=== PATIENT | male | born 1940 | race Caucasian/White ===

== ENCOUNTER → 2017-05-29 | Outpatient (CLI) | payer BC ==
[~2017-05-29] MED LIST: AVD5 PO; LISI5TAB3 PO; METO50TA7 PO; NITR-5 PO; SIMV20TA2 PO; STLS PO
== END | disposition home or self-care (01) ==
LOC: C.PATHSPEC 16:58
PROVIDERS: ATTEND Urology
DX: R31.0 Gross hematuria (principal)

== ENCOUNTER → 2017-06-21 | Outpatient (CLI) | payer BC ==
[~2017-06-21] MED LIST changes: -METO50TA7 PO; +METO50TA8 PO
[2017-06-21 12:14] LABS: HEMATOCRIT 46.3 % (42-52); HEMOGLOBIN 16.2 g/dL (14.0-18.0); MEAN CELL VOLUME 93.5 fL (80-100); MEAN CORPUSCULAR HEMOGLOBIN 32.7 pg (25-34); MEAN PLATELET VOLUME 11.3 fL (7.4-10.4); PLATELET COUNT 228 K/uL (130-400); RED CELL DISTRIBUTION WIDTH CV 12.8 % (11.5-14.5); RED CELL DISTRIBUTION WIDTH SD 43.9 fL (36.4-46.3); WHITE BLOOD COUNT 6.09 K/uL (4.8-10.8)
[2017-06-21 12:27] LABS: BLOOD UREA NITROGEN 15 mg/dl (7-18); CALCIUM 9.1 mg/dl (8.5-10.1); CARBON DIOXIDE 29 mmol/L (21-32); CREATININE 1.29 mg/dl (0.60-1.40); GLUCOSE 87 mg/dl (70-99); POTASSIUM 4.3 mmol/L (3.5-5.1); SODIUM 134 mmol/L (136-145)
== END | disposition home or self-care (01) ==
LOC: C.LAB1850 09:45
PROVIDERS: ATTEND Urology
DX: R31.0 Gross hematuria (principal)

== ENCOUNTER → 2017-07-01 | Outpatient (CLI) | payer BC ==
[~2017-07-01] MED LIST changes: +OPTIRAY 320 IV PRN
--- NOTE | 2017-07-01 08:58 | DIAGNOSTIC IMAGING REPORT ---
CT UROGRAM CLINICAL HISTORY: Gross hematuria COMPARISON STUDY: Abdominal CT dated 04/17/2011. TECHNIQUE: Before and following the IV administration of 94 cc of Optiray 320, CT urogram of the abdomen and pelvis is performed from the lung bases to the proximal femora. Images are reviewed in the axial, sagittal, and coronal planes. IV contrast was administered without complication. A dose lowering technique was utilized adhering to the principles of ALARA. CT DOSE: 1427.00 mGycm FINDINGS: Lung bases: The heart is mildly enlarged and without pericardial effusion. The coronary arteries are densely calcified. Emphysematous change is noted. The lung bases are otherwise clear. There is a tiny hiatal hernia. Liver: The contrast-enhanced liver is normal in size, contour, and attenuation. There is no intrahepatic biliary ductal dilatation. The hepatic veins and portal veins are patent. Gallbladder: Unremarkable. Spleen: Normal in size and attenuation. Pancreas: Unremarkable. Adrenal glands: Unremarkable. Kidneys and ureters: The contrast enhanced kidneys demonstrate mild cortical atrophy and are without hydronephrosis. There are no renal calculi identified on the unenhanced images. The kidneys enhance and excrete symmetrically. There is no enhancing renal cortical mass lesion identified. A 10 mm cyst is noted in the lower pole of the left kidney. There is no evidence of urothelial lesion within the renal pelvis bilaterally or along the course of either ureter. Abdominal vasculature: There is advanced atherosclerotic calcification and ectasia of the abdominal aorta. Bowel: Moderate colonic fecal retention is identified. There is no bowel obstruction. The appendix is well-visualized and normal. Peritoneum: There is no intraperitoneal free air or abdominal ascites. Lymphadenopathy: None. Pelvic viscera: The prostate gland is markedly enlarged and heterogeneous, measuring 6.5 cm in transverse diameter. The bladder wall is thickened and trabeculated consistent with chronic outlet obstruction. There is a small fat-containing left inguinal hernia. Surgical clips are noted along the spermatic cord bilaterally. Skeletal structures: The skeletal structures are osteopenic. Degenerative change is noted in the lumbar spine, hips, and sacroiliac joints. No lytic or blastic lesions are seen. IMPRESSION: 1. Unremarkable assessment of the kidneys and ureters. 2. The prostate gland is markedly enlarged and heterogeneous. Correlation was serum PSA levels is recommended. 3. The bladder wall is thickened and trabeculated consistent with chronic outlet obstruction. If further assessment of the bladder is desired then cystoscopy would be appropriate. 4. Cardiomegaly and suspect emphysema. 5. Moderate colonic fecal retention. Electronically signed by: Ramu Gonzales M.D. 07/01/2017 8:57 AM Dictated Date/Time: 07/01/2017 8:48 AM
== END | disposition home or self-care (01) ==
LOC: C.CTS 08:00
PROVIDERS: ATTEND Urology
DX: R31.0 Gross hematuria (principal)

== ENCOUNTER → 2017-12-05 | Outpatient (CLI) | payer BC ==
[~2017-12-05] MED LIST changes: -OPTIRAY 320 IV PRN
== END | disposition home or self-care (01) ==
LOC: C.LAB1850 08:52
PROVIDERS: ATTEND Urology
DX: R97.20 Elevated prostate specific antigen [PSA] (principal)

== ENCOUNTER 2017-12-30 22:31 | Inpatient (IN) | payer BC, OTHER ==
[~2017-12-30] VITALS: Ht 175.3 cm; Wt 83.9 kg
[2017-12-30] MEDS ORDERED: SODIUM CHLORIDE 0.9% 1000ML 1,000 ML IV SCH (22:43)
--- NOTE | 2017-12-30 22:52 | EMERGENCY ROOM VISIT NOTE ---
History Report prepared by Andrew: Lauren Singer Under the Supervision of: Dr. Cullen Freeman M.D. First contact with patient: 22:40 Chief Complaint: STROKE SYMPTOMS Stated Complaint: STROKE SYMPTOMS Nursing Triage Summary: Pt states, "I was sitting on the couch, leaned over to pet my dog and felt an odd sensation. I was seeing double. I feel a little bit weak on my left side and I have a h/a." Sx started at 2140. History of Present Illness The patient is a 77 year old male who presents to the Emergency Room with complaints of an episode of transient double vision beginning 1 hour ago. He notes the double vision lasted about 40 seconds, and he is still experiencing clumsiness of his L arm and leg. He notes a mild posterior headache. He denies trauma or chest pain, aphasia, weakness, or numbness. The patient denies a history of similar symptoms. He notes he is on aspirin and has a history of Afib but does not take other blood thinners. Source of History: patient Onset: 1 hour ago Position: eye (bilateral) Symptom Intensity: transient Quality: other (one 40 second episode) Associated Symptoms: + headache (mild, posterior), No chest pain, No weakness, No numbness Note: Associated symptom: clumsiness of L arm and L leg. Denies: aphasia Review of Systems See HPI for pertinent positives and negatives. A total of ten systems were reviewed and were otherwise negative. Social History Smoking Status: Never Smoker Alcohol Use: occasionally Marital Status: Occupation Status: retired Current/Historical Medications Scheduled Aspirin (Aspirin Ec), 81 MG PO DAILY Dronedarone Hcl (Multaq), 1 TAB PO BID Dutasteride (Avodart), 0.5 MG PO DAILY Lisinopril (Prinivil), 30 MG PO DAILY Metoprolol Tartrate (Lopressor) (Lopressor), 50 MG PO BID Simvastatin (Zocor), 10 MG PO QPM Allergies Coded Allergies: No Known Drug Allergy (Verified Allergy, Unknown, `, 12/30/17) Physical Exam Vital Signs Date Time Temp Pulse Resp B/P (MAP) Pulse Ox O2 Delivery O2 Flow Rate FiO2 12/31/17 00:10 58 18 194/92 99 Room Air 12/30/17 23:47 56 18 207/99 96 Room Air 12/30/17 23:31 216/96 820/18 23:27 66 20 227/107 98 Room Air 12/30/17 23:20 61 18 201/96 95 Room Air 12/30/17 23:04 60 16 207/97 97 Room Air 12/30/17 22:59 58 12/30/17 22:40 98 Room Air 12/30/17 22:33 36.5 58 16 214/102 97 Room Air Physical Exam GENERAL: Awake, alert, well-appearing, in no distress HENT: Normocephalic, atraumatic. Oropharynx unremarkable. EYES: Normal conjunctiva. Sclera non-icteric. NECK: Supple. No nuchal rigidity. RESPIRATORY: Clear to auscultation. No wheezes. Normal respiratory effort. CARDIAC: Normal rate. Normal rhythm. Extremities warm and well perfused. GI: Soft, non-distended. No tenderness to palpation. No rebound or guarding RECTAL: Deferred. MUSCULOSKELETAL: Atraumatic. Chest examination reveals no tenderness. LOWER EXTREMITIES: Calves are equal size bilaterally and non-tender. No edema NEURO: Normal sensorium. No sensory or motor deficits noted. No facial droop. SKIN: Warm and dry. No rash or jaundice noted. Mild ataxia of L hand and leg, no pronator drift, cranial nerves 2-12 grossly intact, no slurred speech, no aphasia. NIH 2 Medical Decision & Procedures ER Provider Diagnostic Interpretation: Radiology results as stated below per my review and radiologist interpretation: CT OF THE HEAD WITHOUT CONTRAST CLINICAL HISTORY: Stroke. COMPARISON STUDY: No previous studies for comparison. CT DOSE: 614.27 mGy.cm TECHNIQUE: Helical axial images of the head were obtained without IV contrast. Automated exposure control was utilized for the study. A dose lowering technique was utilized adhering to the principles of ALARA. FINDINGS: No acute intracranial hemorrhage, midline shift or mass effect is present. Ventricular system is normal. Basilar cisterns are patent. There are no extra axial collections. Solano-white differentiation is maintained. There are no findings to suggest acute dural sinus thrombosis or acute territorial infarct. There are no significant calvarial abnormalities. Small amount of fluid within the right mastoid air cells is noted. IMPRESSION: No acute intracranial findings. Electronically signed by: Andi Duke M.D. 12/30/2017 10:58 PM Dictated Date/Time: 12/30/2017 10:55 PM CTA HEAD: No evidence for intracranial arterial occlusion or significant stenosis. Mild peripheral calcified plague in the distant internal carotid arteries. No visualized aneurysm. Radiologist: Mikhail Mccann MD. CTA NECK: No significant/high-grade stenosis or evidence for arterial occlusion within the neck. No evidence for vertebral dissection. There is mild peripheral calcified plaque within the right carotid bulb, without stenosis of the internal carotid artery. There is mild peripheral calcified plaque involving the left carotid bulb and proximal ICA with minimal narrowing. No acute soft tissue findings. Radiologist: Mikhail Mccann MD. Laboratory Results 12/30/17 22:47 Red Blood Count 4.33, Mean Corpuscular Volume 93.1, Mean Corpuscular Hemoglobin 31.6, Mean Corpuscular Hemoglobin Concent 34.0, Mean Platelet Volume 11.6, Neutrophils (%) (Auto) 61.0, Lymphocytes (%) (Auto) 22.7, Monocytes (%) (Auto) 11.8, Eosinophils (%) (Auto) 4.0, Basophils (%) (Auto) 0.2, Neutrophils # (Auto ) 3.91, Lymphocytes # (Auto) 1.46, Monocytes # (Auto) 0.76, Eosinophils # (Auto ) 0.26, Basophils # (Auto) 0.01 12/30/17 22:47 Test 12/30/17 22:47 12/30/17 23:05 White Blood Count 6.42 K/uL (4.8-10.8) Red Blood Count 4.33 M/uL (4.7-6.1) Hemoglobin 13.7 g/dL (14.0-18.0) Hematocrit 40.3 % (42-52) Mean Corpuscular Volume 93.1 fL (80-100) Mean Corpuscular Hemoglobin 31.6 pg (25-34) Mean Corpuscular Hemoglobin Concent 34.0 g/dl (32-36) Platelet Count 180 K/uL (130-400) Mean Platelet Volume 11.6 fL (7.4-10.4) Neutrophils (%) (Auto) 61.0 % Lymphocytes (%) (Auto) 22.7 % Monocytes (%) (Auto) 11.8 % Eosinophils (%) (Auto) 4.0 % Basophils (%) (Auto) 0.2 % Neutrophils # (Auto) 3.91 K/uL (1.4-6.5) Lymphocytes # (Auto) 1.46 K/uL (1.2-3.4) Monocytes # (Auto) 0.76 K/uL (0.11-0.59) Eosinophils # (Auto) 0.26 K/uL (0-0.5) Basophils # (Auto) 0.01 K/uL (0-0.2) RDW Standard Deviation 43.5 fL (36.4-46.3) RDW Coefficient of Variation 12.7 % (11.5-14.5) Immature Granulocyte % (Auto) 0.3 % Immature Granulocyte # (Auto) 0.02 K/uL (0.00-0.02) Prothrombin Time 10.2 SECONDS (9.0-12.0) Prothromb Time International Ratio 1.0 (0.9-1.1) Activated Partial Thromboplast Time 23.6 SECONDS (21.0-31.0) Partial Thromboplastin Ratio 0.9 Est Creatinine Clear Calc Drug Dose 58.8 ml/min Estimated GFR () 71.8 Estimated GFR (Non- 61.9 BUN/Creatinine Ratio 17.6 (10-20) Bedside Glucose 93 mg/dl (70-99) Calcium Level 8.4 mg/dl (8.5-10.1) Magnesium Level 2.2 mg/dl (1.8-2.4) Total Creatine Kinase 85 U/L (39-308) Creatine Kinase MB 1.1 ng/ml (0.5-3.6) Creatine Kinase MB Ratio 1.3 (0-3.0) Troponin I < 0.015 ng/ml (0-0.045) Bedside Hemoglobin 11.6 g/dl (14.0-18.0) Bedside Hematocrit 34 % (42-52) Bedside Sodium 139 mEq/L (135-144) Bedside Potassium 3.7 mEq/L (3.3-5.0) Bedside Chloride 102 mEq/L (101-112) Bedside Total CO2 23 mEq/l (24-31) Anion Gap 19.0 mmol/L (16-25) Bedside Blood Urea Nitrogen 21 mg/dl (7-18) Bedside Creatinine 1.0 mg/dl (0.6-1.3) Bedside Glucose (other) 91 mg/dl (70-99) Bedside Ionized Calcium (Brenda) 1.11 mmol/l (1.12-1.32) Laboratory results reviewed by me Medications Administered Medications (Trade) Dose Ordered Sig/Dio Route Start Time Stop Time Status Last Admin Dose Admin Sodium Chloride 1,000 ml @ 50 mls/hr Q20H IV 12/30/17 22:43 01/29/18 22:42 12/30/17 23:07 50 MLS/HR Aspirin (Ecotrin Tab) 325 mg ONE STAT PO 12/30/17 23:50 12/30/17 23:52 DC 12/31/17 00:05 325 MG Clopidogrel Bisulfate (plAVix TAB) 300 mg NOW STAT PO 12/30/17 23:50 12/30/17 23:52 DC 12/31/17 00:05 300 MG Famotidine (Pepcid Tab) 20 mg NOW ONCE PO 12/31/17 00:00 12/31/17 00:01 DC 12/31/17 00:05 20 MG ECG Per My Interpretation Indication: other (stroke) Rate (beats per minute): 58 Rhythm: sinus bradycardia Findings: other (normal intervals. normal axis. no ST segment elevation or depression.) ED Course 2239: The patient was evaluated in room A1. A complete history and physical exam was performed. 2316: Discussed the case with Ellie Piña neurologist. He will evaluate the patient. 0005: Discussed the case with Ellie Piña neurologist. He advises Aspirin and Plavix and admittance of the patient. 0006: [facility] Medical Decision Etiologies such as metabolic, infection, hypoglycemia, electrolyte abnormalities , cardiac sources, intracerebral event, toxicologic, neurologic, as well as others were entertained. Patient presents with sudden onset of left limb ataxia and headache approximately an hour ago with acute hypertension. On aspirin. NIH 2 for LUE and LLE ataxia mild in finding. Stroke alert initiated. CT and CT angiography of the head and neck were completed. No acute intracranial bleed. No acute electrolyte abnormality. No hypoglycemia. Tele-stroke was initiated. No significant acute electrolyte abnormality. EKG appears normal sinus rhythm. Given the resolving symptoms and minimal nature agree with tele-stroke that in discussion with patient will not pursue TPA at this time. Given aspirin and Plavix. Patient will be admitted for further stroke/TIA workup. Head Trauma GCS Score: 15 Medication Reconcilliation Current Medication List: was personally reviewed by me Blood Pressure Screening Patient's blood pressure: Elevated blood pressure Blood pressure disposition: Referred to PCP (referred to hospitalist) Consults Time Called: 5 Consulting Physician: Moustapha bellist Impression Primary Impression: Ataxia of left upper extremity Additional Impression: Hypertension Scribe Attestation The scribe's documentation has been prepared under my direction and personally reviewed by me in its entirety. I confirm that the note above accurately reflects all work, treatment, procedures, and medical decision making performed by me. Departure Information Dispostion Being Evaluated By Hospitalist Referrals Julien Bundy M.D.([facility]) (PCP) Patient Instructions My [facility] Stroke History Time Last Known Well 2139 Stroke t-PA Criteria Reviewed Meets criteria for t-PA Reason t-PA Not Given Treatment not indicated (Minimal and improving symptoms. Telestroke discussed with patient who declined TPA) Problem Qualifiers Additional Impression: Hypertension Hypertension type: unspecified Qualified Codes: I10 - Essential (primary) hypertension
[2017-12-30 22:59] LABS: BASO % 0.2 %; BASO ABS # 0.01 K/uL (0-0.2); EOS ABS # 0.26 K/uL (0-0.5); HEMATOCRIT 40.3 % (42-52); HEMOGLOBIN 13.7 g/dL (14.0-18.0); IG# 0.02 K/uL (0.00-0.02); LYMPH % 22.7 %; LYMPH ABS # 1.46 K/uL (1.2-3.4); MEAN CELL VOLUME 93.1 fL (80-100); MEAN CORPUSCULAR HEMOGLOBIN 31.6 pg (25-34); MEAN PLATELET VOLUME 11.6 fL (7.4-10.4); MONO % 11.8 %; MONO ABS # 0.76 K/uL (0.11-0.59); NEUT ABS # 3.91 K/uL (1.4-6.5); PLATELET COUNT 180 K/uL (130-400); RED CELL DISTRIBUTION WIDTH CV 12.7 % (11.5-14.5); RED CELL DISTRIBUTION WIDTH SD 43.5 fL (36.4-46.3); WHITE BLOOD COUNT 6.42 K/uL (4.8-10.8)
[2017-12-30] MEDS ORDERED: OPTIRAY 320 IV PRN (23:00)
--- NOTE | 2017-12-30 23:00 | DIAGNOSTIC IMAGING REPORT ---
CT OF THE HEAD WITHOUT CONTRAST CLINICAL HISTORY: Stroke. COMPARISON STUDY: No previous studies for comparison. CT DOSE: 614.27 mGy.cm TECHNIQUE: Helical axial images of the head were obtained without IV contrast. Automated exposure control was utilized for the study. A dose lowering technique was utilized adhering to the principles of ALARA. FINDINGS: No acute intracranial hemorrhage, midline shift or mass effect is present. Ventricular system is normal. Basilar cisterns are patent. There are no extra axial collections. Solano-white differentiation is maintained. There are no findings to suggest acute dural sinus thrombosis or acute territorial infarct. There are no significant calvarial abnormalities. Small amount of fluid within the right mastoid air cells is noted. IMPRESSION: No acute intracranial findings. Electronically signed by: Andi Duke M.D. 12/30/2017 10:58 PM Dictated Date/Time: 12/30/2017 10:55 PM
[2017-12-30 23:11] LABS: PTT PATIENT 23.6 SECONDS (21.0-31.0)
[2017-12-30 23:18] LABS: ISTAT IONIZED CALCIUM 1.11 mmol/l (1.12-1.32); ISTAT POTASSIUM 3.7 mEq/L (3.3-5.0)
[2017-12-30] MEDS ORDERED: DUTA0.5C PO (23:20)
[2017-12-30] MEDS ORDERED: LISI-526 PO (23:20)
[2017-12-30] MEDS ORDERED: DRON400T PO (23:20)
[2017-12-30] MEDS ORDERED: ASPI81TA28 PO (23:20)
[2017-12-30] MEDS ORDERED: METO50TA16 PO (23:20)
[2017-12-30 23:21] LABS: BLOOD UREA NITROGEN 20 mg/dl (7-18); CALCIUM 8.4 mg/dl (8.5-10.1); CARBON DIOXIDE 26 mmol/L (21-32); CKMB 1.1 ng/ml (0.5-3.6); CREATININE 1.13 mg/dl (0.60-1.40); GLUCOSE 94 mg/dl (70-99); POTASSIUM 3.9 mmol/L (3.5-5.1); SODIUM 140 mmol/L (136-145)
[2017-12-30] MEDS ORDERED: SIMV10TA2 PO (23:21)
[2017-12-30] MEDS ORDERED: CLOPIDOGREL BISULFATE 300 MG TAB PO STA (23:50)
[2017-12-30] MEDS ORDERED: ASPIRIN 325 MG ECTAB PO STA (23:50)
[2017-12-31] VITALS (8 sets, daily range): BP systolic 158–207; BP diastolic 73–92; PULSE 53–65; TEMP 36.3–36.6; O2SAT 95–96; Ht 175.3 cm; Wt 83.9 kg
[2017-12-31] MEDS ORDERED: FAMOTIDINE 20 MG TAB PO ONE
[2017-12-31] MEDS ORDERED: ACETAMINOPHEN 325 MG TAB PO PRN (02:30)
[2017-12-31] MEDS ORDERED: NITROGLYCERIN 0.4 MG SL PER TAB CHARGE SL PRN (02:30)
[2017-12-31] MEDS ORDERED: PHARMACIST DISCHARGE MED REC CONSULT PRN (02:30)
[2017-12-31] MEDS ORDERED: PROCHLORPERAZINE INJ 5 MG in SYRINGE 4 ML IV PRN (02:30)
[2017-12-31] MEDS ORDERED: TRAMADOL HCL 50 MG TAB PO PRN (02:30)
[2017-12-31] MEDS ORDERED: MoRPHine SULFATE 4 MG/ML 1 ML CARP\\VIAL IV PRN (02:30)
[2017-12-31] MEDS ORDERED: NSS + 20MEQ KCL 1000ML 1,000 ML IV ONE (03:45)
[2017-12-31] MEDS ORDERED: LISINOPRIL 5 MG TAB PO ONE (04:15)
[2017-12-31] MEDS ORDERED: CALCIUM GLUCONATE 10% 1,000 MG in SODIUM CHLORIDE 0.9% 50ML 50 ML IV ONE (05:15)
[2017-12-31 05:44] LABS: BASO % 0.2 %; BASO ABS # 0.01 K/uL (0-0.2); EOS % 4.8 %; EOS ABS # 0.24 K/uL (0-0.5); HEMATOCRIT 37.9 % (42-52); HEMOGLOBIN 12.7 g/dL (14.0-18.0); IG# 0.02 K/uL (0.00-0.02); LYMPH % 27.9 %; LYMPH ABS # 1.41 K/uL (1.2-3.4); MEAN CELL VOLUME 92.9 fL (80-100); MEAN CORPUSCULAR HEMOGLOBIN 31.1 pg (25-34); MEAN CORPUSCULAR HGB CONC 33.5 g/dl (32-36); MEAN PLATELET VOLUME 11.7 fL (7.4-10.4); MONO % 9.7 %; MONO ABS # 0.49 K/uL (0.11-0.59); NEUT ABS # 2.88 K/uL (1.4-6.5); PLATELET COUNT 157 K/uL (130-400); RED CELL DISTRIBUTION WIDTH CV 12.8 % (11.5-14.5); RED CELL DISTRIBUTION WIDTH SD 43.4 fL (36.4-46.3); RETIC COUNT % 3.1 % (0.5-2.0); WHITE BLOOD COUNT 5.05 K/uL (4.8-10.8)
[2017-12-31 06:24] LABS: CALCIUM 7.8 mg/dl (8.5-10.1); CREATININE 0.94 mg/dl (0.60-1.40); POTASSIUM 3.7 mmol/L (3.5-5.1)
--- NOTE | 2017-12-31 06:33 | HISTORY & PHYSICAL EXAMINATION ---
DATE OF ADMISSION: 12/31/2017 PRIMARY CARE DOCTOR: Dr. Bundy. CHIEF COMPLAINT: Stroke symptoms. HISTORY OF PRESENT ILLNESS: History obtained from patient and records. Medical history significant for coronary artery disease status post stenting, paroxysmal atrial fibrillation not on anticoagulation secondary to massive hematuria. hypertension, hyperlipidemia, BPH, past tobacco abuse, Recent confinement in April 2011 under Urology service for gross hematuria. Patient was taking NSAIDs along with Aspirin/Plavix at time of hematuria. Patient underwent cystoscopy and fulguration of prostatic urethra. Plavix discontinued on discharge, stayed on aspirin. Around 9:45 p.m. last night, patient had transient double vision and clumsiness of left arm, leg, posterior achy headache. No chest pain, no shortness of breath. Compliant with home aspirin. At the Emergency Room, symptoms improving. Stroke alert called. Patient received Aspirin and Plavix in the ER as per [facility] Telestroke recommendation. MEDICAL HISTORY: As above. SURGERIES: He has had urologic procedures. HOME MEDICATIONS: Include aspirin, Multaq, Avodart, lisinopril, Lopressor, Zocor. ALLERGIES: No known drug allergies. FAMILY HISTORY: Heart disease, stroke. PERSONAL AND SOCIAL HISTORY: Past tobacco smoker. Occasional EtOH intake. 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 REVIEW OF SYSTEMS: As per HPI, all 10 systems reviewed, all other ROS negative. PHYSICAL EXAMINATION: VITAL SIGNS: Blood pressure was noted to be 207/97, pulse rate 55, RR 16, temperature 36.4, sats 99 on room air. GENERAL: Noted to be pleasant, no respiratory distress. SKIN: joel, warm. HEENT: Bespectacled. Webber palpebral conjunctivae, no ptosis, dry mucosa. NECK: Supple, nontender. CHEST: Clear to auscultation, no tenderness. HEART: Bradycardic. No murmur. ABDOMEN: Soft, nontender. RECTAL: Intact sphincter, yellow stool, heme negative. EXTREMITIES: No edema, no tenderness, no gross deformities. NEUROLOGIC: Coherent, no facial symmetry, no gross focality. Gait and stance not assessed. LABORATORY DATA: Hemoglobin was noted to be 13.7, hematocrit 40.3, white blood cells 6.42, platelets 180. Sodium noted to be 140, potassium 3.9, chloride 107, CO2 of 26, BUN 20, creatinine 1.13. TSH 4.82. CT head initially no acute pathology. CT angio neck initial read, no significant high-grade stenosis; mild peripheral calcified plaque, right carotid bulb without stenosis of right ICA; mild peripheral calcified plaque, left ICA with minimal narrowing. Chest x-ray as per my interpretation, atelectasis. EKG as per my interpretation, rate 55, sinus bradycardia, no ischemia. ASSESSMENT: 1. Transient ischemic attack versus complicated migraine. 2. Hypertensive urgency secondary to above 3. Paroxysmal atrial fibrillation patient NSR Not on anticoagulation secondary to past history massive hematuria 4. CAD sp stenting 5. Benign prostatic hyperplasia as per records. 6. Past tobacco abuse. 7. New onset anemia. PLAN: PCU neuro checks. MRI/MRA of brain. Continue dual antiplatelet Rx Aspirin and Plavix as per [facility] [place] Telestroke recommendations for now for secondary stroke prevention Neurology consult. RE TIA Permissive hypertension until new stroke ruled out. Additional stroke workup pending MRI results. Anemia workup. Deep venous thrombosis prophylaxis, Lovenox subcutaneous. Full code MTDD
--- NOTE | 2017-12-31 06:33 | DIAGNOSTIC IMAGING REPORT ---
MRI OF THE BRAIN WITHOUT CONTRAST CLINICAL HISTORY: Stroke, double vision, loss of coordination of the left arm and leg. COMPARISON STUDY: Noncontrast head CT dated 12/30/2017 FINDINGS: Sagittal T1, axial diffusion, proton density and T2 weighted axial, coronal FLAIR, and axial T1-weighted images were acquired. No intra or extra-axial mass lesions are visualized Axial diffusion-weighted images reveal no evidence of acute or subacute infarction. There is no evidence of ventricular dilatation. Proton density T2-weighted and FLAIR images reveal no significant intraparenchymal signal abnormalities. There are no abnormal flow voids. IMPRESSION: Normal MRI of the brain for age Electronically signed by: Antonino Cano M.D. 12/31/2017 6:32 AM Dictated Date/Time: 12/31/2017 6:30 AM
--- NOTE | 2017-12-31 06:46 | DIAGNOSTIC IMAGING REPORT ---
CT NECK ANGIO WITH CONTRAST CLINICAL HISTORY: Stroke. COMPARISON STUDY: Carotid Doppler ultrasound performed July 2006 TECHNIQUE: CT angiography was performed from the aortic arch to the skull base. MIP imaging was performed. The patient was scanned in a dynamic helical fashion during intravenous administration of 90 cc of Optiray 320. A dose lowering technique was utilized adhering to the principles of ALARA. CT DOSE: 543.46 mGy.cm Technique: CT angiogram of the carotid and vertebral arteries was obtained using intravenous contrast and 3-D reconstruction. NASCET criteria was utilized. Findings: The right carotid revealed no evidence of aneurysm and no evidence of dissection. There is no evidence of hemodynamic significant stenosis. The left carotid revealed no evidence of hemodynamic significant stenosis. There is no evidence of aneurysm. There is no evidence of dissection. There is no evidence of hemodynamically significant vertebral stenosis. There is no evidence of vertebral dissection. IMPRESSION: No evidence of hemodynamically significant carotid or vertebral artery stenosis. No evidence of dissection. Electronically signed by: Antonino Cano M.D. 12/31/2017 6:44 AM Dictated Date/Time: 12/31/2017 6:42 AM
--- NOTE | 2017-12-31 06:47 | DIAGNOSTIC IMAGING REPORT ---
CHEST ONE VIEW PORTABLE HISTORY: 77 years-old Male elevated bp acutely elevated blood pressure COMPARISON: Chest radiograph 02/16/2010 TECHNIQUE: Portable AP view of the chest FINDINGS: Cardiomediastinal and hilar silhouettes are within normal limits. Calcification of the aorta. No pneumothorax, pleural effusion, focal airspace consolidation or overt pulmonary edema. Linear subsegmental left basilar opacities suggest atelectasis/scarring. Bones of the chest appear grossly intact. IMPRESSION: No acute process. The above report was generated using voice recognition software. It may contain grammatical, syntax or spelling errors. Electronically signed by: Adan Zafar M.D. 12/31/2017 6:46 AM Dictated Date/Time: 12/31/2017 6:45 AM
--- NOTE | 2017-12-31 07:05 | DIAGNOSTIC IMAGING REPORT ---
MRA HEAD WITHOUT CONTRAST HISTORY: 77 years-old Male stroke acute strokelike symptoms COMPARISON: Brain MRI of same day TECHNIQUE: MRA of the head was obtained without contrast utilizing 3-D acjl-xl-smrsan sequencing with MIP reformats. FINDINGS: Large [id number] goodwill ambassador localizer images demonstrate no gross abnormality. The imaged bilateral internal carotid arteries are widely patent. The bilateral middle and anterior cerebral arteries are also widely patent and within normal limits. The imaged bilateral vertebral arteries are patent. The basilar artery appears patent and is within normal limits. The bilateral posterior cerebral arteries appear normal. No aneurysm, high-grade stenosis, dissection or proximal branch occlusion. IMPRESSION: Unremarkable MRA of the head without aneurysm, high-grade stenosis, dissection or proximal branch occlusion. The above report was generated using voice recognition software. It may contain grammatical, syntax or spelling errors. Electronically signed by: Adan Zafar M.D. 12/31/2017 7:04 AM Dictated Date/Time: 12/31/2017 6:59 AM
--- NOTE | 2017-12-31 07:22 | DIAGNOSTIC IMAGING REPORT ---
HEAD ANGIO WITH CONTRAST CLINICAL HISTORY: 77 years-old Male presenting with stroke. TECHNIQUE: Multidetector CT angiography of the head was performed after the administration of intravenous contrast. 3-D volumetric and/or maximum intensity projection (MIP) images were subsequently reconstructed for review. IV contrast: 90 mL of Optiray 320. A dose lowering technique was used consistent with the principles of ALARA (as low as reasonably achievable). COMPARISON: Noncontrast head CT performed earlier the same day. CT DOSE (mGy.cm): The estimated cumulative dose is 543.46. FINDINGS: Maintenance Custodian topogram: Unremarkable. Anterior circulation: Atherosclerosis of the cavernous segments of the internal carotid arteries. Intracranial portions of the internal carotid arteries patent to the level of the termini. Anterior and middle cerebral arteries patent. Anterior communicating artery hypoplastic or aplastic. Posterior circulation: Codominant vertebral arteries. Intradural portions of the vertebral arteries patent. Posterior inferior cerebellar arteries patent. Basilar artery patent. The basilar tip is mildly bulbous without a focal aneurysm. Anterior inferior cerebellar arteries poorly visualized. Superior cerebellar and posterior cerebral arteries patent. Right posterior communicating artery hypoplastic or aplastic. Left posterior communicating artery patent. Dural venous sinuses: Patent. Other: Allowing for the phase of contrast, brain parenchyma within normal limits. Calvarium intact. Upper cervical spine normal. IMPRESSION: 1. No evidence of aneurysm, focal vessel occlusion, or significant stenosis of the intracranial arteries. Electronically signed by: Marty Black M.D. 12/31/2017 7:20 AM Dictated Date/Time: 12/31/2017 6:33 AM
[2017-12-31] MEDS: AVODART-ORDER AWAITING ACTION SCH ×2 (08:00→14:47)
[2017-12-31] MEDS: DRONEDARONE 400 MG TAB PO SCH ×2 (08:27→19:31)
[2017-12-31] MEDS ORDERED: ENOXAPARIN 40 MG/0.4 ML SYR SC SCH (09:00)
--- NOTE | 2017-12-31 09:50 | Neurology Consultation ---
Neurology Consultation Date of Consultation: Dec 31, 2017. Attending Physician: Salas Cuevas M.D. Primary Care Physician: Julien Bundy M.D.(CLARITZA) History of Present Illness Source: patient, hospital records Mr.Elwin Ricardo is a 77 year old male with history of HTN, HLD, and paroxysmal Afib not on anticoagulation due to history of severe hematuria who was admitted for transient horizontal diplopia and left arm and leg ataxia. Symptom onset was acute and resolved after several hours last night. Denies history of stroke or similar symptoms. He is a non smoker. Denies significant alcohol. Denies JORDON. No history of diabetes. Reports feeling well now. He was on ASA at home and is currently on dual antiplatelet therapy. Past Medical/Surgical History Medical Problems: (1) Ataxia of left upper extremity Status: Acute (2) Hypertension Status: Acute Family History Stroke, Heart Disease Social History Smoking Status: Former smoker Marital Status: Occupation Status: retired Allergies Coded Allergies: No Known Drug Allergy (Verified Allergy, Unknown, `, 12/30/17) Current Inpatient Medications Current Inpatient Medications Medications (Trade) Dose Ordered Sig/Dio Route Start Time Stop Time Status Last Admin Dose Admin Ioversol (Optiray 320) 125 ml UD PRN IV 12/30/17 23:00 01/03/18 22:59 Acetaminophen (Tylenol Tab) 650 mg Q4H PRN PO 12/31/17 02:30 01/30/18 02:29 Nitroglycerin (Nitrostat Tab) 0.4 mg UD PRN SL 12/31/17 02:30 01/30/18 02:29 Aspirin (Ecotrin Tab) 81 mg QAM PO 01/01/18 09:00 01/31/18 08:59 Clopidogrel Bisulfate (plAVix TAB) 75 mg QAM PO 01/01/18 09:00 01/31/18 08:59 Miscellaneous Information (Pharmacist Discharge Med Rec Consult) 1 ea UD PRN N/A 12/31/17 02:30 01/30/18 02:29 Prochlorperazine Edisylate 5 mg/ Syringe 5 ml @ 5 mls/min Q6H PRN IV 12/31/17 02:30 01/30/18 02:29 Tramadol HCl (Ultram Tab) 25 mg Q6H PRN PO 12/31/17 02:30 01/30/18 02:29 Morphine Sulfate (MoRPHine SULFATE INJ) 4 mg Q6H PRN IV 12/31/17 02:30 01/14/18 02:29 Dronedarone (Multaq Tab) 400 mg BID PO 12/31/17 09:00 01/30/18 08:59 12/31/17 08:27 400 MG Simvastatin (Zocor Tab) 10 mg QPM PO 12/31/17 21:00 01/30/18 20:59 Miscellaneous Information (Order Awaiting Action) 1 ea QS N/A 12/31/17 08:00 01/30/18 07:59 Lisinopril (Zestril Tab) 5 mg QAM PO 01/01/18 09:00 01/31/18 08:59 Review of Systems Eyes: + diplopia Genitourinary - Male: + hematuria Neurologic: + weakness Physical Exam Vital Signs (Past 24 Hrs): Date Time Temp Pulse Resp B/P (MAP) Pulse Ox O2 Delivery O2 Flow Rate FiO2 12/31/17 08:30 61 12/31/17 07:44 36.3 53 20 158/84 (108) 95 12/31/17 04:00 Room Air 12/31/17 03:13 96 Room Air 12/31/17 03:10 36.4 55 20 207/92 12/31/17 02:09 56 18 179/85 95 Room Air 12/31/17 00:48 54 18 186/95 99 Room Air 12/31/17 00:10 58 18 194/92 99 Room Air 12/30/17 23:47 56 18 207/99 96 Room Air 12/30/17 23:31 216/96 12/30/17 23:27 66 20 227/107 98 Room Air 12/30/17 23:20 61 18 201/96 95 Room Air 12/30/17 23:04 60 16 207/97 97 Room Air 12/30/17 22:59 58 12/30/17 22:40 98 Room Air 12/30/17 22:33 36.5 58 16 214/102 97 Room Air EXAM: Constitutional: appearance normally developed, well nourished and non-obese Head and Face: normocephalic and atraumatic Eyes: normal lids, normal conjunctiva, Neck: supple Respiratory: normal effort Cardiovascular: ~regular rhythm and normal pulses Abdomen: non distended Skin: no rashes, lesions, or ulcers noted Psychiatric: normal judgement and insight, normal mood and normal affect NEUROLOGIC EXAMINATION: Appearance: no acute distress Opthalmoscopic: disc flat, normal fundus Carotid/Heart/Peripheral Vascular: no bruits, RRR Orientation: awake, alert and oriented x 3 Mental Status: alert Attention: normal Knowledge: appropriate Language: no aphasia Speech: no dysarthria Cranial Nerves: CN 2 - no visual defect on confrontation CN 3, 4, 6 - extra-ocular movements intact and no nystagmus CN 5 - facial sensation intact CN 7 - no facial asymmetry CN 8 - intact hearing CN 9, 10 - palate symmetric CN 11 - good shoulder shrug CN 12 - tongue midline Gait: deferred Coordination: no ataxia with finger to nose testing or heel to jacobsen Sensory: intact to soft touch Muscle Tone: normal Muscle exam: 5/5 throughout Reflexes:2+ at the knees and biceps, no clonus, toes flexor bilateral Laboratory Results Past 24 Hours: 12/31/17 05:26 Red Blood Count 4.08, Mean Corpuscular Volume 92.9, Mean Corpuscular Hemoglobin 31.1, Mean Corpuscular Hemoglobin Concent 33.5, Mean Platelet Volume 11.7, Neutrophils (%) (Auto) 57.0, Lymphocytes (%) (Auto) 27.9, Monocytes (%) (Auto) 9.7, Eosinophils (%) (Auto) 4.8, Basophils (%) (Auto) 0.2, Neutrophils # (Auto) 2.88, Lymphocytes # (Auto) 1.41, Monocytes # (Auto) 0.49, Eosinophils # (Auto) 0.24, Basophils # (Auto) 0.01 12/31/17 05:26 Test 12/30/17 22:47 12/30/17 23:05 12/31/17 05:26 Prothrombin Time 10.2 SECONDS (9.0-12.0) Prothromb Time International Ratio 1.0 (0.9-1.1) Activated Partial Thromboplast Time 23.6 SECONDS (21.0-31.0) Partial Thromboplastin Ratio 0.9 Bedside Glucose 93 mg/dl (70-99) Magnesium Level 2.2 mg/dl (1.8-2.4) Total Creatine Kinase 85 U/L (39-308) Creatine Kinase MB 1.1 ng/ml (0.5-3.6) Creatine Kinase MB Ratio 1.3 (0-3.0) Troponin I < 0.015 ng/ml (0-0.045) Thyroid Stimulating Hormone (TSH) 4.820 uIu/ml (0.300-4.500) Free Thyroxine 0.92 ng/dl (0.80-1.60) Total Triiodothyronine 0.85 ng/ml (0.60-1.81) Bedside Hemoglobin 11.6 g/dl (14.0-18.0) Bedside Hematocrit 34 % (42-52) Bedside Sodium 139 mEq/L (135-144) Bedside Potassium 3.7 mEq/L (3.3-5.0) Bedside Chloride 102 mEq/L (101-112) Bedside Total CO2 23 mEq/l (24-31) Bedside Blood Urea Nitrogen 21 mg/dl (7-18) Bedside Creatinine 1.0 mg/dl (0.6-1.3) Bedside Glucose (other) 91 mg/dl (70-99) Bedside Ionized Calcium (Brenda) 1.11 mmol/l (1.12-1.32) White Blood Count 5.05 K/uL (4.8-10.8) Red Blood Count 4.08 M/uL (4.7-6.1) Hemoglobin 12.7 g/dL (14.0-18.0) Hematocrit 37.9 % (42-52) Mean Corpuscular Volume 92.9 fL (80-100) Mean Corpuscular Hemoglobin 31.1 pg (25-34) Mean Corpuscular Hemoglobin Concent 33.5 g/dl (32-36) Platelet Count 157 K/uL (130-400) Mean Platelet Volume 11.7 fL (7.4-10.4) Neutrophils (%) (Auto) 57.0 % Lymphocytes (%) (Auto) 27.9 % Monocytes (%) (Auto) 9.7 % Eosinophils (%) (Auto) 4.8 % Basophils (%) (Auto) 0.2 % Neutrophils # (Auto) 2.88 K/uL (1.4-6.5) Lymphocytes # (Auto) 1.41 K/uL (1.2-3.4) Monocytes # (Auto) 0.49 K/uL (0.11-0.59) Eosinophils # (Auto) 0.24 K/uL (0-0.5) Basophils # (Auto) 0.01 K/uL (0-0.2) RDW Standard Deviation 43.4 fL (36.4-46.3) RDW Coefficient of Variation 12.8 % (11.5-14.5) Immature Granulocyte % (Auto) 0.4 % Immature Granulocyte # (Auto) 0.02 K/uL (0.00-0.02) Absolute Reticulocyte Count 0.12 10^6/uL (0.02-0.10) Percent Reticulocyte Count 3.1 % (0.5-2.0) Anion Gap 7.0 mmol/L (3-11) Est Creatinine Clear Calc Drug Dose 64.8 ml/min Estimated GFR () 89.6 Estimated GFR (Non- 77.3 BUN/Creatinine Ratio 18.9 (10-20) Calcium Level 7.8 mg/dl (8.5-10.1) Iron Level 51 mcg/dl (35-175) Total Iron Binding Capacity 288 mcg/dl (250-450) Transferrin 227 mg/dl (200-360) Transferrin % Saturation 16 % (20-50) Ferritin 82.4 ng/ml (8.0-388.0) Triglycerides Level 123 mg/dl (0-150) Cholesterol Level 90 mg/dl (0-200) HDL Cholesterol 30 mg/dl LDL Cholesterol, Calculated 35 mg/dl VLDL Cholesterol, Calculated 25 mg/dl Cholesterol/HDL Ratio 3.0 Vitamin B12 Level 238 pg/mL (211-911) Folate 11.25 ng/mL (>5.38) Imaging MRI Brain w/o contrast on 12/31/2017 reviewed. My impression is normal MRI brain. No evidence of any acute intracranial abnormality. CTA Head and Neck reviewed. No large vessel occlusion or significant stenosis. Impression I believe this patient had a transient ischemic attack. He is high risk for stroke given his paroxysmal atrial fibrillation and NOT on anticoagulation. He is currently on dual anti-platelet therapy. He is not on anticoagulation due to previous bleeding diathesis. I strongly recommended he discussed with his urologist if he is still at risk for bleeding and if anticoagulation was possible. If patient is NOT a candidate for anticoagulation I agree with dual antiplatelet therapy for now, however I would recommend discussion or consolation with cardiology to consider Watchmen device. I would also recommend consultation with cardiology for MIKE as this may help with decision making regarding anticoagulation. If MIKE is not possible I would recommend TTE with shunt. Recommend normotension with SBP <140, DBP<90. Please check HA1c if not already checked. Recommend switching to high intensity statin, Lipitor 40 mg daily for secondary stroke prevention. Plan Continue dual antiplatelet therapy for now Recommend patient discuss with his urologist if he is a candidate for anticoagulation Switch to high intensity statin Recommend TTE (MIKE preferable) Consider discussion with cardiology regarding Watchmen if patient not candidate for anticoagulation
--- NOTE | 2017-12-31 14:41 | Progress Note ---
Internal Med Progress Note Date of Service: Dec 31, 2017. Provider Documentation: SUBJECTIVE: Patient reports weakness on admission has resolved. Denies headache or chest pain or abdominal pain or shortness of breath OBJECTIVE: Exam: General- no acute distress Eyes- EOMI Neck- no JVD Lungs- clear to auscultation bilaterally Heart- sinus bradycardia Abdomen- soft, nontender, positive bowel sounds Extremities- no edema, extremities strength is intact and equal on both sides Neuro- awake and alert ASSESSMENT & PLAN: Hospital Course and Plan 77 year old male with history of HTN, HLD, and paroxysmal Afib not on anticoagulation due to history of severe hematuria who was admitted for transient horizontal diplopia and left arm and leg ataxia Patient was evaluated by Telestroke As per ED notes Reason t-PA Not Given: Treatment not indicated (Minimal and improving symptoms. Telestroke discussed with patient who declined TPA Patient was evaluated by occupational therapy and physical therapy and no further therapy required as of 12/31/17 as symptoms have resolved MRI Brain w/o contrast on 12/31/2017 reviewed. normal MRI brain. No evidence of any acute intracranial abnormality. CTA Head and Neck reviewed. No large vessel occlusion or significant stenosis. Patient was evaluated by neurology Dr. Braxton and diagnosis is transient ischemic attack Dr. Braxton recommended dual antiplatelet therapy (aspirin and clopidogrel) for now high intensity statin of Lipitor 40 mg daily Neurology recommended that echocardiogram be obtained to rule out any interatrial shunt Transthoracic Echocardiogram 12/31/17 * Normal LV chamber size with mild concentric LVH. * Normal LV systolic function, EF 60-65%. * No segmental left ventricular wall motion abnormalities are noted. * Grade II diastolic dysfunction. * Aortic valve sclerosis mild, without significant aortic valvular stenosis. * Mild mitral regurgitation. * Mild left atrial enlargement. * The interatrial septum is intact with no evidence for an atrial septal defect. * Injection of contrast documented no interatrial shunt. No Interatrial shunt identified Patient declines Transesophageal echocardiogram Dr. Braxton Recommend patient discuss with his [facility] urologist (Dr. Pineda) if he is a candidate for anticoagulation Patient is not on anticoagulation secondary to past history massive hematuria, history of Benign prostatic hyperplasia Hospitalist have discussed with [facility] urology and Dr. Mahmood, who is Dr. Pineda's colleague, is in favor of of anticoagulation with coumadin History of Paroxysmal atrial fibrillation not on anticoagulation; history of coronary artery disease with stents currently sinus bradycardia - continue metoprolol at home Patient prefers to wait until primary care appointment with Dr. Bundy before considering to start Coumadin therapy He agrees with hospitalist to be discharged with aspirin and clopidogrel and atorvastatin for now Hypertension / Hypertensive urgency Primary care doctor should help patient achieve blood pressure SBP <140, DBP<90 resume lisinopril also adding HCTZ daily Primary care doctor to follow up HbA1c that is pending from hospital admission Patient Discharge instructions Patient to take clopidogrel with aspirin daily. Patient should take atorvastatin rather than simvastatin Please follow up with primary care doctor 01/07/2018 11:20 AM Julien Bundy MD Family Practice [facility] (Patient to discuss possibly being started on coumadin) (Primary care doctor to follow up HbA1c that is pending from hospital admission) (Primary care doctor should help patient achieve blood pressure SBP <140, DBP<90 ) Other upcoming appointment with ENT 01/08/2018 9:20 AM Cyrus Alves DO Otolaryngology [facility] Vital Signs: Date Time Temp Pulse Resp B/P (MAP) Pulse Ox O2 Delivery O2 Flow Rate FiO2 12/31/17 16:18 36.6 55 18 186/73 (110) 96 12/31/17 16:00 Room Air 12/31/17 08:30 61 12/31/17 08:00 Room Air 12/31/17 07:44 36.3 53 20 158/84 (108) 95 12/31/17 04:00 Room Air 12/31/17 03:13 96 Room Air 12/31/17 03:10 36.4 55 20 207/92 12/31/17 02:09 56 18 179/85 95 Room Air 12/31/17 00:48 54 18 186/95 99 Room Air 12/31/17 00:10 58 18 194/92 99 Room Air 12/30/17 23:47 56 18 207/99 96 Room Air 12/30/17 23:31 216/96 12/30/17 23:27 66 20 227/107 98 Room Air 12/30/17 23:20 61 18 201/96 95 Room Air 12/30/17 23:04 60 16 207/97 97 Room Air 12/30/17 22:59 58 12/30/17 22:40 98 Room Air 12/30/17 22:33 36.5 58 16 214/102 97 Room Air Lab Results: Results Past 24 Hours Test 12/30/17 22:47 12/30/17 23:05 12/31/17 05:26 12/31/17 10:45 Range/Units White Blood Count 6.42 5.05 4.8-10.8 K/uL Red Blood Count 4.33 4.08 4.7-6.1 M/uL Hemoglobin 13.7 12.7 14.0-18.0 g/dL Hematocrit 40.3 37.9 42-52 % Mean Corpuscular Volume 93.1 92.9 80-100 fL Mean Corpuscular Hemoglobin 31.6 31.1 25-34 pg Mean Corpuscular Hemoglobin Concent 34.0 33.5 32-36 g/dl Platelet Count 180 157 130-400 K/uL Mean Platelet Volume 11.6 11.7 7.4-10.4 fL Neutrophils (%) (Auto) 61.0 57.0 % Lymphocytes (%) (Auto) 22.7 27.9 % Monocytes (%) (Auto) 11.8 9.7 % Eosinophils (%) (Auto) 4.0 4.8 % Basophils (%) (Auto) 0.2 0.2 % Neutrophils # (Auto) 3.91 2.88 1.4-6.5 K/uL Lymphocytes # (Auto) 1.46 1.41 1.2-3.4 K/uL Monocytes # (Auto) 0.76 0.49 0.11-0.59 K/uL Eosinophils # (Auto) 0.26 0.24 0-0.5 K/uL Basophils # (Auto) 0.01 0.01 0-0.2 K/uL RDW Standard Deviation 43.5 43.4 36.4-46.3 fL RDW Coefficient of Variation 12.7 12.8 11.5-14.5 % Immature Granulocyte % (Auto) 0.3 0.4 % Immature Granulocyte # (Auto) 0.02 0.02 0.00-0.02 K/uL Prothrombin Time 10.2 9.0-12.0 SECONDS Prothromb Time International Ratio 1.0 0.9-1.1 Activated Partial Thromboplast Time 23.6 21.0-31.0 SECONDS Partial Thromboplastin Ratio 0.9 Sodium Level 140 139 136-145 mmol/L Potassium Level 3.9 3.7 3.5-5.1 mmol/L Chloride Level 107 108 98-107 mmol/L Carbon Dioxide Level 26 24 21-32 mmol/L Anion Gap 7.0 19.0 7.0 3-11 mmol/L Blood Urea Nitrogen 20 18 7-18 mg/dl Creatinine 1.13 0.94 0.60-1.40 mg/dl Est Creatinine Clear Calc Drug Dose 58.8 64.8 ml/min Estimated GFR () 71.8 89.6 Estimated GFR (Non- 61.9 77.3 BUN/Creatinine Ratio 17.6 18.9 10-20 Bedside Glucose 93 70-99 mg/dl Random Glucose 94 87 70-99 mg/dl Calcium Level 8.4 7.8 8.5-10.1 mg/dl Magnesium Level 2.2 1.8-2.4 mg/dl Total Creatine Kinase 85 39-308 U/L Creatine Kinase MB 1.1 0.5-3.6 ng/ml Creatine Kinase MB Ratio 1.3 0-3.0 Troponin I < 0.015 0-0.045 ng/ml Thyroid Stimulating Hormone (TSH) 4.820 0.300-4.500 uIu/ml Free Thyroxine 0.92 0.80-1.60 ng/dl Total Triiodothyronine 0.85 0.60-1.81 ng/ml Bedside Hemoglobin 11.6 14.0-18.0 g/dl Bedside Hematocrit 34 42-52 % Bedside Sodium 139 135-144 mEq/L Bedside Potassium 3.7 3.3-5.0 mEq/L Bedside Chloride 102 101-112 mEq/L Bedside Total CO2 23 24-31 mEq/l Bedside Blood Urea Nitrogen 21 7-18 mg/dl Bedside Creatinine 1.0 0.6-1.3 mg/dl Bedside Glucose (other) 91 70-99 mg/dl Bedside Ionized Calcium (Brenda) 1.11 1.12-1.32 mmol/l Absolute Reticulocyte Count 0.12 0.02-0.10 10^6/uL Percent Reticulocyte Count 3.1 0.5-2.0 % Iron Level 51 35-175 mcg/dl Total Iron Binding Capacity 288 250-450 mcg/dl Transferrin 227 200-360 mg/dl Transferrin % Saturation 16 20-50 % Ferritin 82.4 8.0-388.0 ng/ml Triglycerides Level 123 0-150 mg/dl Cholesterol Level 90 0-200 mg/dl HDL Cholesterol 30 mg/dl LDL Cholesterol, Calculated 35 mg/dl VLDL Cholesterol, Calculated 25 mg/dl Cholesterol/HDL Ratio 3.0 Vitamin B12 Level 238 211-911 pg/mL Folate 11.25 >5.38 ng/mL Urine Color YELLOW Urine Appearance CLEAR CLEAR Urine pH 5.0 4.5-7.5 Urine Specific [place] 1.027 1.000-1.030 Urine Protein NEG NEG Urine Glucose (UA) NEG NEG Urine Ketones NEG NEG Urine Occult Blood NEG NEG Urine Nitrite NEG NEG Urine Bilirubin NEG NEG Urine Urobilinogen NEG NEG Urine Leukocyte Esterase NEG NEG
[2017-12-31] MEDS ORDERED: ATORVASTATIN 40 MG TAB PO STA (14:58)
[2017-12-31] MEDS ORDERED: PERFLUTREN LIPID MICROSPHERE (DEFINITY) IV ONE (16:01)
--- NOTE | 2017-12-31 17:04 | ECHOCARDIOGRAM REPORT ---
*NOTICE TO RECEIVING REPUBLICAN AGENCY This information is strictly Confidential and protected under [place] law. [place] law prohibits you from making any further disclosure of this information unless further disclosure is expressly permitted by the written consent of the person to whom it pertains or is authorized by law. A general authorization for the release of medical or other information is not sufficient for this purpose. Hospital accepts no responsibility if the information is made available to any other person, INCLUDING THE PATIENT. Interpretation Summary * Name: WILBERT MARQUEZ Study Date: 12/31/2017 03:24 PM BP: 158/84 mmHg * Patient Location: [facility]\S\N284\S\1 HR: 61 * : 1940 (M/d/yyyy) Gender: Male Height: 69 in * Age: 77 yrs Ethnicity: [place] Weight: 184 lb * Ordering Physician: Salas Cuevas * Referring Physician: Self, Referred * Performed By: Rosibel Quiroz RDCS * * Reason For Study: Stroke * BSA: 2.0 m2 * -- Conclusions -- * Normal LV chamber size with mild concentric LVH. * Normal LV systolic function, EF 60-65%. * No segmental left ventricular wall motion abnormalities are noted. * Grade II diastolic dysfunction. * Aortic valve sclerosis mild, without significant aortic valvular stenosis. * Mild mitral regurgitation. * Mild left atrial enlargement. * The interatrial septum is intact with no evidence for an atrial septal defect. * Injection of contrast documented no interatrial shunt. Procedure Details * A complete two-dimensional transthoracic echocardiogram was performed (2D, M-mode, Doppler and color flow Doppler). * A saline contrast injection was performed to assess for cardiac shunting. * The injection was performed through an intravenous line in the right arm. * The attending nurse who injected the saline contrast was Elana Jc RN. * A total of 20 cc of agitated saline was given. * A contrast injection of Definity was performed to improve assessment for apical thrombus. * Contrast was injected into an intravenous site in the right arm. * One vial of Definity ultrasound contrast was diluted in normal saline to a total volume of 10 ml. A total of '2' ml of solution was administered during imaging. * Lot # [id number] of Definity utilized for procedure. * Expiration date 1Jul19. * The attending nurse who injected the contrast agent was Azul Soto RN. Left Ventricle * The left ventricle is normal in size. * There is no thrombus. * There is mild concentric left ventricular hypertrophy. * Ejection Fraction = 60-65%. * Left ventricular systolic function is normal. * No segmental left ventricular wall motion abnormalities are noted. * The left ventricular wall motion is normal. Right Ventricle * The right ventricular cavity size is normal (basal dimension <4.2 cm in right ventricular apical 4-chamber view). * The right ventricular systolic function is normal as assessed by tricuspid annular plane systolic excursion (TAPSE) (normal >1.5 cm). Atria * The left atrium is mildly dilated. * Right atrial size is normal. * The interatrial septum is intact with no evidence for an atrial septal defect. * Injection of contrast documented no interatrial shunt. Mitral Valve * The mitral valve anatomy is normal. * There is no mitral valve stenosis. * There is mild mitral regurgitation. Tricuspid Valve * The tricuspid valve is normal in structure and function. Aortic Valve * The aortic valve is trileaflet. * Aortic valve sclerosis mild, without significant aortic valvular stenosis. * There is no significant aortic regurgitation. Pulmonic Valve * The pulmonary valve is not well seen, but the Doppler examination is normal without significant regurgitation or stenosis. Great Vessels * The aortic root is normal size. Pericardium/Pleural * There is no pericardial effusion. Left Ventricular Diastolic Function * Diastolic dysfunction, Grade II (pseudonormalization pattern). MMode 2D Measurements and Calculations IVSd 1.3 cm IVSs 1.6 cm LVIDd 4.3 cm LVIDs 3.0 cm LVPWd 1.3 cm LVPWs 1.7 cm IVS/LVPW 1.0 FS 30.1 % EDV(Teich) 83.0 ml ESV(Teich) 35.1 ml EF(Teich) 57.6 % EDV(cubed) 79.4 ml ESV(cubed) 27.1 ml EF(cubed) 65.8 % % IVS thick 22.5 % % LVPW thick 28.5 % LV mass(C)d 212.4 grams LV mass(C)dI 106.5 grams/m\S\2 LV mass(C)s 187.8 grams LV mass(C)sI 94.2 grams/m\S\2 SV(Teich) 47.8 ml SI(Teich) 24.0 ml/m\S\2 SV(cubed) 52.2 ml SI(cubed) 26.2 ml/m\S\2 Ao root diam 3.2 cm Ao root area 8.1 cm\S\2 ACS 1.9 cm LA dimension 4.0 cm LA/Ao 1.2 LVAd ap4 38.9 cm\S\2 LVLd ap4 9.3 cm EDV(MOD-sp4) 136.4 ml EDV(sp4-el) 138.4 ml LVAs ap4 21.1 cm\S\2 LVLs ap4 8.1 cm ESV(MOD-sp4) 48.8 ml ESV(sp4-el) 46.7 ml EF(MOD-sp4) 64.2 % EF(sp4-el) 66.3 % LVAd ap2 33.9 cm\S\2 LVLd ap2 8.7 cm EDV(MOD-sp2) 111.4 ml EDV(sp2-el) 112.6 ml LVAs ap2 17.1 cm\S\2 LVLs ap2 6.7 cm ESV(MOD-sp2) 38.1 ml ESV(sp2-el) 37.1 ml EF(MOD-sp2) 65.8 % EF(sp2-el) 67.0 % LVLd %diff -6.98 % EDV(MOD-bp) 127.5 ml LVLs %diff -20.29 % ESV(MOD-bp) 47.3 ml EF(MOD-bp) 62.9 % SV(MOD-sp4) 87.6 ml SI(MOD-sp4) 43.9 ml/m\S\2 SV(MOD-sp2) 73.3 ml SI(MOD-sp2) 36.8 ml/m\S\2 SV(MOD-bp) 80.2 ml SI(MOD-bp) 40.2 ml/m\S\2 SV(sp4-el) 91.8 ml SI(sp4-el) 46.0 ml/m\S\2 SV(sp2-el) 75.5 ml SI(sp2-el) 37.9 ml/m\S\2 Doppler Measurements and Calculations MV E max chris 75.1 cm/sec MV A max chris 64.2 cm/sec MV E/A 1.2 MV dec time 0.37 sec Ao V2 max 111.1 cm/sec Ao max PG 4.9 mmHg Ao max PG (full) 2.5 mmHg LV V1 max PG 2.5 mmHg LV V1 max 78.5 cm/sec PA V2 max 128.6 cm/sec PA max PG 6.6 mmHg PI max chris 144.9 cm/sec PI max PG 8.4 mmHg PI dec slope 84.3 cm/sec\S\2 PI P1/2t 503.6 msec TR max chris 235.1 cm/sec
[2017-12-31] MEDS ORDERED: ASPI81TA28 PO (18:20)
[2017-12-31] MEDS ORDERED: LPT40 PO (18:20)
[2017-12-31] MEDS ORDERED: PLV75 PO (18:20)
[2017-12-31] MEDS ORDERED: LISINOPRIL 20 MG TAB PO STA (18:22)
[2017-12-31] MEDS ORDERED: HYDROCHLOROTHIAZIDE 25 MG TAB PO STA (18:39)
[2017-12-31] MEDS ORDERED: HYDR12.56 PO (18:41)
--- NOTE | 2017-12-31 18:53 | Discharge Instructions ---
Discharge Instructions Date of Service Dec 31, 2017. Admission Reason for Admission: TIA Discharge Discharge Diagnosis / Problem: transient ischemic attack, Hypertensive urgency , Hypertension Discharge Goals Goal(s): Improve disease control Activity Recommendations Activity Limitations: per Instructions/Follow-up section . Instructions / Follow-Up Instructions / Follow-Up Hospital Course and Plan 77 year old male with history of HTN, HLD, and paroxysmal Afib not on anticoagulation due to history of severe hematuria who was admitted for transient horizontal diplopia and left arm and leg ataxia Patient was evaluated by Telestroke As per ED notes Reason t-PA Not Given: Treatment not indicated (Minimal and improving symptoms. Telestroke discussed with patient who declined TPA Patient was evaluated by occupational therapy and physical therapy and no further therapy required as of 12/31/17 as symptoms have resolved MRI Brain w/o contrast on 12/31/2017 reviewed. normal MRI brain. No evidence of any acute intracranial abnormality. CTA Head and Neck reviewed. No large vessel occlusion or significant stenosis. Patient was evaluated by neurology Dr. Braxton and diagnosis is transient ischemic attack Dr. Braxton recommended dual antiplatelet therapy (aspirin and clopidogrel) for now high intensity statin of Lipitor 40 mg daily Neurology recommended that echocardiogram be obtained to rule out any interatrial shunt Transthoracic Echocardiogram 12/31/17 * Normal LV chamber size with mild concentric LVH. * Normal LV systolic function, EF 60-65%. * No segmental left ventricular wall motion abnormalities are noted. * Grade II diastolic dysfunction. * Aortic valve sclerosis mild, without significant aortic valvular stenosis. * Mild mitral regurgitation. * Mild left atrial enlargement. * The interatrial septum is intact with no evidence for an atrial septal defect. * Injection of contrast documented no interatrial shunt. No Interatrial shunt identified Patient declines Transesophageal echocardiogram Dr. Braxton Recommend patient discuss with his [facility] urologist (Dr. Pineda) if he is a candidate for anticoagulation Patient is not on anticoagulation secondary to past history massive hematuria, history of Benign prostatic hyperplasia Hospitalist have discussed with [facility] urology and Dr. Mahmood, who is Dr. Pineda's colleague, is in favor of of anticoagulation with coumadin History of Paroxysmal atrial fibrillation not on anticoagulation; history of coronary artery disease with stents currently sinus bradycardia - continue metoprolol at home Patient prefers to wait until primary care appointment with Dr. Bundy before considering to start Coumadin therapy He agrees with hospitalist to be discharged with aspirin and clopidogrel and atorvastatin for now Hypertension / Hypertensive urgency Primary care doctor should help patient achieve blood pressure SBP <140, DBP<90 resume lisinopril also adding HCTZ daily Primary care doctor to follow up HbA1c that is pending from hospital admission Patient Discharge instructions Patient to take clopidogrel with aspirin daily. Patient should take atorvastatin rather than simvastatin Please follow up with primary care doctor 01/07/2018 11:20 AM Julien Bundy MD Family Practice [facility] (Patient to discuss possibly being started on coumadin) (Primary care doctor to follow up HbA1c that is pending from hospital admission) (Primary care doctor should help patient achieve blood pressure SBP <140, DBP<90 ) Other upcoming appointment with ENT 01/08/2018 9:20 AM Cyrus Alves DO Otolaryngology [facility] Risk Factors for Stroke: You can reduce your chances of stroke by working with your medical provider to adopt a healthy lifestyle. Some specific ways to lower your chance of stroke are: * If you are a smoker, now is the time to stop smoking cigarettes * If you are diabetic, improve the control of your blood sugars * Avoid excessive amounts of alcohol * Control high blood pressure * Lose weight if you are overweight * Be sure to lead an active lifestyle * Eat a healthy diet low in salt, cholesterol and fat You should know about other risk factors for stroke that you are unable to control. These include: * Age 55 years or older * Male gender * Certain racial groups: , or / * Family History of Stroke, Mini stroke or Heart Attack * Sickle Cell Disease Follow Up: It is important for you to keep your follow up appointments with your medical provider. Current Hospital Diet Patient's current hospital diet: AHA Diet (Heart Healthy) Discharge Diet Recommended Diet: AHA Diet (Heart Healthy) Pending Studies Studies pending at discharge: yes List of pending studies: Hemoglobin A1c Laboratory Results 12/31/17 05:26 Red Blood Count 4.08, Mean Corpuscular Volume 92.9, Mean Corpuscular Hemoglobin 31.1, Mean Corpuscular Hemoglobin Concent 33.5, Mean Platelet Volume 11.7, Neutrophils (%) (Auto) 57.0, Lymphocytes (%) (Auto) 27.9, Monocytes (%) (Auto) 9.7, Eosinophils (%) (Auto) 4.8, Basophils (%) (Auto) 0.2, Neutrophils # (Auto) 2.88, Lymphocytes # (Auto) 1.41, Monocytes # (Auto) 0.49, Eosinophils # (Auto) 0.24, Basophils # (Auto) 0.01 12/31/17 05:26 Test 12/30/17 22:47 12/30/17 23:05 12/31/17 05:26 12/31/17 10:45 Prothrombin Time 10.2 SECONDS (9.0-12.0) Prothromb Time International Ratio 1.0 (0.9-1.1) Activated Partial Thromboplast Time 23.6 SECONDS (21.0-31.0) Partial Thromboplastin Ratio 0.9 Bedside Glucose 93 mg/dl (70-99) Magnesium Level 2.2 mg/dl (1.8-2.4) Total Creatine Kinase 85 U/L (39-308) Creatine Kinase MB 1.1 ng/ml (0.5-3.6) Creatine Kinase MB Ratio 1.3 (0-3.0) Troponin I < 0.015 ng/ml (0-0.045) Thyroid Stimulating Hormone (TSH) 4.820 uIu/ml (0.300-4.500) Free Thyroxine 0.92 ng/dl (0.80-1.60) Total Triiodothyronine 0.85 ng/ml (0.60-1.81) Bedside Hemoglobin 11.6 g/dl (14.0-18.0) Bedside Hematocrit 34 % (42-52) Bedside Sodium 139 mEq/L (135-144) Bedside Potassium 3.7 mEq/L (3.3-5.0) Bedside Chloride 102 mEq/L (101-112) Bedside Total CO2 23 mEq/l (24-31) Bedside Blood Urea Nitrogen 21 mg/dl (7-18) Bedside Creatinine 1.0 mg/dl (0.6-1.3) Bedside Glucose (other) 91 mg/dl (70-99) Bedside Ionized Calcium (Brenda) 1.11 mmol/l (1.12-1.32) White Blood Count 5.05 K/uL (4.8-10.8) Red Blood Count 4.08 M/uL (4.7-6.1) Hemoglobin 12.7 g/dL (14.0-18.0) Hematocrit 37.9 % (42-52) Mean Corpuscular Volume 92.9 fL (80-100) Mean Corpuscular Hemoglobin 31.1 pg (25-34) Mean Corpuscular Hemoglobin Concent 33.5 g/dl (32-36) Platelet Count 157 K/uL (130-400) Mean Platelet Volume 11.7 fL (7.4-10.4) Neutrophils (%) (Auto) 57.0 % Lymphocytes (%) (Auto) 27.9 % Monocytes (%) (Auto) 9.7 % Eosinophils (%) (Auto) 4.8 % Basophils (%) (Auto) 0.2 % Neutrophils # (Auto) 2.88 K/uL (1.4-6.5) Lymphocytes # (Auto) 1.41 K/uL (1.2-3.4) Monocytes # (Auto) 0.49 K/uL (0.11-0.59) Eosinophils # (Auto) 0.24 K/uL (0-0.5) Basophils # (Auto) 0.01 K/uL (0-0.2) RDW Standard Deviation 43.4 fL (36.4-46.3) RDW Coefficient of Variation 12.8 % (11.5-14.5) Immature Granulocyte % (Auto) 0.4 % Immature Granulocyte # (Auto) 0.02 K/uL (0.00-0.02) Absolute Reticulocyte Count 0.12 10^6/uL (0.02-0.10) Percent Reticulocyte Count 3.1 % (0.5-2.0) Anion Gap 7.0 mmol/L (3-11) Est Creatinine Clear Calc Drug Dose 64.8 ml/min Estimated GFR () 89.6 Estimated GFR (Non- 77.3 BUN/Creatinine Ratio 18.9 (10-20) Calcium Level 7.8 mg/dl (8.5-10.1) Iron Level 51 mcg/dl (35-175) Total Iron Binding Capacity 288 mcg/dl (250-450) Transferrin 227 mg/dl (200-360) Transferrin % Saturation 16 % (20-50) Ferritin 82.4 ng/ml (8.0-388.0) Triglycerides Level 123 mg/dl (0-150) Cholesterol Level 90 mg/dl (0-200) HDL Cholesterol 30 mg/dl LDL Cholesterol, Calculated 35 mg/dl VLDL Cholesterol, Calculated 25 mg/dl Cholesterol/HDL Ratio 3.0 Vitamin B12 Level 238 pg/mL (211-911) Folate 11.25 ng/mL (>5.38) Urine Color YELLOW Urine Appearance CLEAR (CLEAR) Urine pH 5.0 (4.5-7.5) Urine Specific Edwards 1.027 (1.000-1.030) Urine Protein NEG (NEG) Urine Glucose (UA) NEG (NEG) Urine Ketones NEG (NEG) Urine Occult Blood NEG (NEG) Urine Nitrite NEG (NEG) Urine Bilirubin NEG (NEG) Urine Urobilinogen NEG (NEG) Urine Leukocyte Esterase NEG (NEG) Hemoglobin A1c Test 12/31/17 05:26 Range/Units Lipid Panel Test 12/31/17 05:26 Range/Units Triglycerides Level 123 0-150 mg/dl Cholesterol Level 90 0-200 mg/dl HDL Cholesterol 30 mg/dl Cholesterol/HDL Ratio 3.0 LDL Cholesterol, Calculated 35 mg/dl Medical Emergencies . Who to Call and When: Medical Emergencies: Call 911 immediately if you experience any of the following warning signs and symptoms of Stroke: * Sudden numbness or weakness of the face, arm or leg, especially on one side of the body * Sudden confusion, trouble speaking or understanding * Sudden trouble seeing in one or both eyes * Sudden trouble walking, dizziness, loss of balance or coordination * Sudden severe headache with no cause Do not delay calling 911 if you experience any warning signs or symptoms of a stroke. Delay in seeking medical attention may affect what treatments can be given to you. . Non-Emergent Contact Non-Emergency issues call your: Primary Care Provider Call Non-Emergent contact if: you have any medication questions . . "Provider Documentation" section prepared by [place]. . Stroke Core Measures Reason no t-PA for Stroke: Treatment not indicated Reason no antithrom by day 2: Treatment provided - N/A Reason no antithrom at D/C: Treatment provided - N/A Reason no statin at D/C: Treatment provided - N/A Reason no anticoag w/a fib: Refusal of tx by patient
--- NOTE | 2017-12-31 18:54 | Discharge Summary ---
Discharge Summary Date of Service Dec 31, 2017. Discharge Summary Admission Date: Dec 31, 2017 at 01:50 Discharge Disposition: Home Principal Diagnosis: transient ischemic attack, Hypertensive urgency, Hypertension Secondary Diagnoses/Problems: history of benign prostate hypertrophy Medication Reconciliation New Medications: Hydrochlorothiazide (Hctz) 12.5 Mg Cap 12.5 MG PO DAILY for 30 Days, #30 TAB Atorvastatin (Lipitor) 40 Mg Tab 40 MG PO QAM for 30 Days, #30 TAB Clopidogrel Bisulfate (Clopidogrel) 75 Mg Tab 75 MG PO QAM for 30 Days, #30 TAB Continued Medications: Aspirin (Aspirin Ec) 81 Mg Tab 81 MG PO DAILY for 30 Days, #30 TAB (This prescription has been renewed) Dronedarone Hcl (Multaq) 400 Mg Tab 1 TAB PO BID, TAB 3 Refills Dutasteride (Avodart) 0.5 Mg Cap 0.5 MG PO DAILY, CAP Lisinopril (Prinivil) 30 Mg Tab 30 MG PO DAILY, TAB Metoprolol Tartrate (Lopressor) (Lopressor) 50 Mg Tab 50 MG PO BID, TAB Discontinued Medications: Simvastatin (Zocor) 10 Mg Tab 10 MG PO QPM, TAB Admission Information HPI (per Admitting provider): CHIEF COMPLAINT: Stroke symptoms. HISTORY OF PRESENT ILLNESS: History obtained from patient and records. Medical history significant for coronary artery disease status post stenting, paroxysmal atrial fibrillation not on anticoagulation secondary to massive hematuria. hypertension, hyperlipidemia, BPH, past tobacco abuse, Recent confinement in April 2011 under Urology service for gross hematuria. Patient was taking NSAIDs along with Aspirin/Plavix at time of hematuria. Patient underwent cystoscopy and fulguration of prostatic urethra. Plavix discontinued on discharge, stayed on aspirin. Around 9:45 p.m. last night, patient had transient double vision and clumsiness of left arm, leg, posterior achy headache. No chest pain, no shortness of breath. Compliant with home aspirin. At the Emergency Room, symptoms improving. Stroke alert called. Patient received Aspirin and Plavix in the ER as [place] [facility] [place]. MEDICAL HISTORY: As above. SURGERIES: He has had urologic procedures. HOME MEDICATIONS: Include aspirin, Multaq, Avodart, lisinopril, Lopressor, Zocor. ALLERGIES: No known drug allergies. FAMILY HISTORY: Heart disease, stroke. PERSONAL AND SOCIAL HISTORY: Past tobacco smoker. Occasional EtOH intake. 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 REVIEW OF SYSTEMS: As per HPI, all 10 systems reviewed, all other ROS negative. Physical Exam (per Admitting): PHYSICAL EXAMINATION: VITAL SIGNS: Blood pressure was noted to be 207/97, pulse rate 55, RR 16, temperature 36.4, sats 99 on room air. GENERAL: Noted to be pleasant, no respiratory distress. SKIN: joel, warm. HEENT: Bespectacled. [place] palpebral conjunctivae, no ptosis, dry mucosa. NECK: Supple, nontender. CHEST: Clear to auscultation, no tenderness. HEART: Bradycardic. No murmur. ABDOMEN: Soft, nontender. RECTAL: Intact sphincter, yellow stool, heme negative. EXTREMITIES: No edema, no tenderness, no gross deformities. NEUROLOGIC: Coherent, no facial symmetry, no gross focality. Gait and stance not assessed. Hospital Course Hospital Course and Plan 77 year old male with history of HTN, HLD, and paroxysmal Afib not on anticoagulation due to history of severe hematuria who was admitted for transient horizontal diplopia and left arm and leg ataxia Patient was evaluated by Telestroke As per ED notes Reason t-PA Not Given: Treatment not indicated (Minimal and improving symptoms. Telestroke discussed with patient who declined TPA Patient was evaluated by occupational therapy and physical therapy and no further therapy required as of 12/31/17 as symptoms have resolved MRI Brain w/o contrast on 12/31/2017 reviewed. normal MRI brain. No evidence of any acute intracranial abnormality. CTA Head and Neck reviewed. No large vessel occlusion or significant stenosis. Patient was evaluated by neurology Dr. Braxton and diagnosis is transient ischemic attack Dr. Braxton recommended dual antiplatelet therapy (aspirin and clopidogrel) for now high intensity statin of Lipitor 40 mg daily Neurology recommended that echocardiogram be obtained to rule out any interatrial shunt Transthoracic Echocardiogram 12/31/17 * Normal LV chamber size with mild concentric LVH. * Normal LV systolic function, EF 60-65%. * No segmental left ventricular wall motion abnormalities are noted. * Grade II diastolic dysfunction. * Aortic valve sclerosis mild, without significant aortic valvular stenosis. * Mild mitral regurgitation. * Mild left atrial enlargement. * The interatrial septum is intact with no evidence for an atrial septal defect. * Injection of contrast documented no interatrial shunt. No Interatrial shunt identified Patient declines Transesophageal echocardiogram Dr. Braxton Recommend patient discuss with his [facility] urologist (Dr. Pineda) if he is a candidate for anticoagulation Patient is not on anticoagulation secondary to past history massive hematuria, history of Benign prostatic hyperplasia Hospitalist have discussed with [facility] urology and Dr. Mahmood, who is Dr. Pineda's colleague, is in favor of of anticoagulation with coumadin History of Paroxysmal atrial fibrillation not on anticoagulation; history of coronary artery disease with stents currently sinus bradycardia - continue metoprolol at home Patient prefers to wait until primary care appointment with Dr. Bundy before considering to start Coumadin therapy He agrees with hospitalist to be discharged with aspirin and clopidogrel and atorvastatin for now Hypertension / Hypertensive urgency Primary care doctor should help patient achieve blood pressure SBP <140, DBP<90 resume lisinopril also adding HCTZ daily Primary care doctor to follow up HbA1c that is pending from hospital admission Patient Discharge instructions Patient to take clopidogrel with aspirin daily. Patient should take atorvastatin rather than simvastatin Please follow up with primary care doctor 01/07/2018 11:20 AM Julien Bundy MD [facility] (Patient to discuss possibly being started on coumadin) (Primary care doctor to follow up HbA1c that is pending from hospital admission) (Primary care doctor should help patient achieve blood pressure SBP <140, DBP<90 ) Other upcoming appointment with ENT 01/08/2018 9:20 AM Cyrus Alves DO [facility] Total time spent on discharge = 40 minutes This includes examination of the patient, discharge planning, medication reconciliation, and communication with other providers. Discharge Instructions Patient Discharge instructions Patient to take clopidogrel with aspirin daily. Patient should take atorvastatin rather than simvastatin Please follow up with primary care doctor 01/07/2018 11:20 AM Julien Bundy MD [facility] (Patient to discuss possibly being started on coumadin) (Primary care doctor to follow up HbA1c that is pending from hospital admission) (Primary care doctor should help patient achieve blood pressure SBP <140, DBP<90 ) Other upcoming appointment with ENT 01/08/2018 9:20 AM Cyrus Alves DO [facility] Risk Factors for Stroke: You can reduce your chances of stroke by working with your medical provider to adopt a healthy lifestyle. Some specific ways to lower your chance of stroke are: If you are a smoker, now is the time to stop smoking cigarettes If you are diabetic, improve the control of your blood sugars Avoid excessive amounts of alcohol Control high blood pressure Lose weight if you are overweight Be sure to lead an active lifestyle Eat a healthy diet low in salt, cholesterol and fat You should know about other risk factors for stroke that you are unable to control. These include: Age 55 years or older Male gender Certain racial groups: , or / Family History of Stroke, Mini stroke or Heart Attack Sickle Cell Disease Follow Up: It is important for you to keep your follow up appointments with your medical provider.
--- NOTE | 2017-12-31 19:39 | Pharmacy Progress Note ---
Pharmacist Stroke Counseling Date of Service Dec 31, 2017. Scope Pharmacy has been consulted to provide medication discharge counseling for this patient admitted with ischemic stroke/hemorrhagic stroke/ transient ischemic attack as per the Pharmacist Discharge Counseling for Stroke Patients Protocol. Medications on Discharge New Medications: Hydrochlorothiazide (Hctz) 12.5 Mg Cap 12.5 MG PO DAILY for 30 Days, #30 TAB Atorvastatin (Lipitor) 40 Mg Tab 40 MG PO QAM for 30 Days, #30 TAB Clopidogrel Bisulfate (Clopidogrel) 75 Mg Tab 75 MG PO QAM for 30 Days, #30 TAB Continued Medications: Aspirin (Aspirin Ec) 81 Mg Tab 81 MG PO DAILY for 30 Days, #30 TAB (This prescription has been renewed) Dronedarone Hcl (Multaq) 400 Mg Tab 1 TAB PO BID, TAB 3 Refills Dutasteride (Avodart) 0.5 Mg Cap 0.5 MG PO DAILY, CAP Lisinopril (Prinivil) 30 Mg Tab 30 MG PO DAILY, TAB Metoprolol Tartrate (Lopressor) (Lopressor) 50 Mg Tab 50 MG PO BID, TAB Discontinued Medications: Simvastatin (Zocor) 10 Mg Tab 10 MG PO QPM, TAB Action The above medications, specifically ones for stroke treatment/prophylaxis, have been reviewed in detail with the patient and/or patient guest relations representative(s) prior to discharge. This includes indication, common adverse reactions, drug interactions, and medication administration. Medication counseling has been employed using the teach-back method to ensure understanding. Outcome The patient and/or patient guest relations representative(s) have demonstrated understanding of the medications. Please note, they are aware that the pharmacist will call them within 72 hours post-discharge to confirm that the appropriate medications are being taken and answer any further medication related questions the patient might have at that time. Contact information Individual to be contacted: Rody Relationship to patient (if applicable): Phone number: [phone] Best time to call: 01-27 Additional comments: spoke extensively re: Mr. Ricardo's new medications. Thank you for allowing pharmacy to be involved in the care of this patient. Please call [phone] or [phone] with any additional questions
[2017-12-31] MEDS ORDERED: SIMVASTATIN 10 MG TAB PO SCH (21:00)
[2017-12-31] MEDS ORDERED: METOPROLOL TARTRATE 50 MG TAB PO SCH (21:00)
[2018-01-01 06:14] LABS: HEMOGLOBIN A1C 5.3 % (4.5-5.6)
[2018-01-01] MEDS ORDERED: ASPIRIN 81 MG ECTAB PO SCH (09:00)
[2018-01-01] MEDS ORDERED: CLOPIDOGREL BISULFATE 75 MG TAB PO SCH (09:00)
[2018-01-01] MEDS ORDERED: ATORVASTATIN 40 MG TAB PO SCH (09:00)
[2018-01-01] MEDS ORDERED: LISINOPRIL 5 MG TAB PO SCH (09:00)
--- NOTE | 2018-01-02 14:43 | Pharmacy Progress Note ---
Pharmacist Post D/C Phone Note Date of phone call: Jan 02, 2018. Individual with whom pharmacist spoke to: Austyn The following questions were reviewed during the phone call with responses listed below each: Can you tell me the medications that you are currently taking as well as when and how you take each medication? - Austyn reported that he has not started the newly prescribed medications ( lipitor, simvastatin, and plavix). He is waiting to discuss the medications with his PCP, Dr. Bundy. He mentioned that he may be transitioning to warfarin and therefore he does not want to start dual antiplatelet therapy for just a few days. He remains on ASA and simvastatin in the meantime. When have you missed any doses of your medications? - see above comments What side effects are you having from your medications? - denies side effects What questions do you have about your medications? - denies questions What problems are you having obtaining your medications? - denies problems When is your next appointment with your primary care doctor? - 01/07/18 Additional comments: - Patient reports not wanting to take HCTZ due to h/o of gout like symptoms when on HCTZ in the past. He has been monitoring his BP at home with SBP in the 132 to 145 mmHg range. I advised him to continue to monitor BP closely and discuss with PCP on Saturday. As per the Pharmacist Discharge Counseling for Stroke Patients Protocol, this phone call has been completed within 72 hours of discharge. Thank you for allowing us to be involved in the care of this patient.
--- NOTE | 2018-01-06 14:24 | Urology Consultation ---
History General Date of Service: Dec 31, 2017. Primary Care Physician: Julien Bundy M.D.(CLARITZA) Pt seen a urologist before?: Yes If yes, why?: Hematuria. BPH History of Present Illness Well known patient with history of Hematuria and previous negative workup. Recently admitted for TIA and found to have need for anticoagulation. Concern for possible hematuria if started on medicaitons. CUrrently doing well from end. NO major issues. No severe problems. Has enough risk to recommend aggressive therapy. Has recent workup and assessment for hematria. No major bother. Is improving from recent TIA. No major residual issues. Laboratory Labs were reviewed and are within normal limits unless listed below. Labs are available in the chart and at [facility] Problem List Medical Problems: (1) Ataxia of left upper extremity Status: Acute (2) Hypertension Status: Acute Past History A Fib, BPH, hypertension, myocardial infarction Past Surgical History: other Social History Hx Tobacco Use In Past Year?: No Smoking: quit greater than 1 year Alcohol: other Marital status: Housing status: lives with family Occupation status: retired Immunizations History of Influenza Vaccine: No History of Tetanus Vaccine?: Yes History of Pneumococcal: Yes Pneumococcal Date: Aug 09, 2009 History of Hepatitis B Vaccine: No History of MDRO No Allergies Coded Allergies: No Known Drug Allergy (Verified Allergy, Unknown, `, 12/30/17) Medications Home Medications: Home Meds and Scripts Medications Dose Route/Sig Max Daily Dose Days Date Category Hctz (Hydrochlorothiazide) 12.5 Mg Cap 12.5 Mg PO DAILY 30 12/31/17 Rx Lipitor (Atorvastatin Calcium) 40 Mg Tab 40 Mg PO QAM 30 12/31/17 Rx Clopidogrel (Clopidogrel Bisulfate) 75 Mg Tab 75 Mg PO QAM 30 12/31/17 Rx Aspirin Ec (Aspirin) 81 Mg Tab 81 Mg PO DAILY 30 12/31/17 Rx Prinivil (Lisinopril) 30 Mg Tab 30 Mg PO DAILY 12/30/17 Reported Lopressor (Metoprolol Tartrate) 50 Mg Tab 50 Mg PO BID 12/30/17 Reported Avodart (Dutasteride) 0.5 Mg Cap 0.5 Mg PO DAILY 12/30/17 Reported Multaq (Dronedarone Hcl) 400 Mg Tab 1 Tab PO BID 12/30/17 Reported Review of Systems Review of Systems All Other Systems: Reviewed and Negative Physical Exam Physical Exam: General Appearance: WD/WN, no apparent distress Eyes: bilateral eyes normal inspection ENT: normal ENT inspection Neck: supple, no JVD Respiratory/Chest: no respiratory distress, no accessory muscle use Cardiovascular: regular rate, rhythm Gastrointestinal: Abdomen: normal abdomen Extremities: normal range of motion, normal inspection, no pedal edema Neurologic/Psychiatric: 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 History of Hematuria 2. Recent TIA/CVA Plan for treatment for vascular disease to lower risk of future stroke. Likely will need therapy for blood thinning and platelets. Okay to start meds. WIll assess for development of hematuria or other issues. If having major bleeding or other problems will be able to intervene. If no major issues will monitor. Plan outpatient followup.
== END 2017-12-31 21:50 | disposition home or self-care (01) | DRG 69 ==
LOC: C.EDB 22:32 → C.MED 12-31 01:50 → ENRESERV 12-31 02:08 → CANRESERV 12-31 02:08 → ENRESERV 12-31 02:17
PROVIDERS: ADMIT Internal Medicine; ATTEND Hospitalist
DX: G45.9 Transient cerebral ischemic attack, unspecified (principal); I16.0 Hypertensive urgency; I10 Essential (primary) hypertension; I48.0 Paroxysmal atrial fibrillation; E78.5 Hyperlipidemia, unspecified; Z79.82 Long term (current) use of aspirin; Z79.899 Other long term (current) drug therapy; D64.9 Anemia, unspecified

== ENCOUNTER 2023-06-21 21:08 | Inpatient (IN) ==
[2023-06-21] MEDS: OPTIRAY 320 125ml IV ONE (21:21)
--- NOTE | 2023-06-21 21:22 | Emergency Department Note ---
Impression & Plan Acute CVA (cerebrovascular accident) ED Provider Note HISTORY OF PRESENT ILLNESS: Patient is an 82-year-old male presenting with strokelike symptoms. Patient was last known well at 1800 by his who just left the house to go on an errand run. She came home and 2029 and found the patient on the ground with slurred speech, right-sided facial droop and right sided weakness. She called 911. Patient is not on any anticoagulation. Patient reportedly was watching TV when his symptoms started and he tried to crawl to the bathroom but was too weak and found him on the ground. He denies any chest pain or shortness of breath. ROS: as above PHYSICAL EXAM: Constitutional: Patient appears in no acute distress. HENT: Head: Normocephalic and atraumatic. Eyes: EOMI, PERRL Mouth/Throat: Mucous membranes moist. Neck: Trachea midline. Neck supple. Cardiovascular: Irregular rhythm. No murmurs, rubs or gallops. Intact distal pulses. Pulmonary/Chest: No respiratory distress. Breath sounds clear and equal bilaterally. No wheezes or rales. Abdominal: Abdomen soft, no tenderness, rebound or guarding. Musculoskeletal: No edema, tenderness or deformity noted. Skin: Warm and dry. No rash, erythema, pallor or cyanosis Psychiatric: Appropriate mood and affect for situation. Neurological: Alert and keenly responsive. Right lower facial droop (+1). Able to raise eyebrows, close eyes, puff mouth, stick out tongue, move tongue left and right and raise palate symmetrically. Able to shrug shoulders. PERRLA. SILT to forehead below eye and at jawline. Can hear soft noise bilaterally. Strength 5/5 bilateral upper and lower extremities. RUE drift (+1). RLE drift (+1). Slurred speech (+1). NIHSS 4. MDM: - Vitals signs showed hypertension - History obtained via patient and EMS. Patient presents with right-sided weakness. Patient reportedly was last known well at 1800 by his who is leaving the house to go on errands. She came home and found the patient down on the ground at 2030. He had right facial droop, slurred speech and right-sided deficits. He is not currently on anticoagulation - Chronic conditions affecting care: Afib; HTN - Differential diagnoses include, but are not limited to: CVA; intracranial hemorrhage; ACS; dysrhythmia; electrolyte abnormality - Order placed for continuous cardiac monitoring. At this time, monitor showed rate of 87 bpm with irregular rhythm, per my interpretation. - External medical records reviewed. Showed [[employer] medical records were reviewed. Patient had an office visit on 05/10/2023. He has a history of CAD, hypertension, hyperlipidemia and paroxysmal A-fib. He is not currently on any anticoagulation. - EKG interpreted by myself showed atrial fibrillation. Rate 83 bpm. QTc prolonged at 412. No acute ischemic changes. - Patient alerted as a stroke alert prehospital. He was taken immediately to CT scan. CT head without contrast was negative for acute intracranial bleed, per my interpretation - Discussed patient's case with [facility] teleneurologist Dr. Marty Palomares at 21:26. He states that "I have 2 strokes simultaneously and have to see the other stroke first and there is no backup." He requested that I go over TNK indications and contraindications with the patient and then he can evaluate him. 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 - Patient's BP elevated. He was given a total of 20 mg of IV labetalol for blood pressure management. His blood pressure did get to 154/103. - I discussed indications and contraindications of TNK with the patient. He has a history of hematuria secondary to prostatitis and has had a prostate removal in the past. No recent surgeries in the last 2 months. No history of intracranial bleeds or GI bleeds. Denies any history of internal bleeding in the last 6 weeks. No recent surgery. Discussed with patient and his the risk of 6% bleed with TNK. However, they are in agreement that they would want this intervention given. Given that the patient is within the window for TNK, as well as a CT scan showed findings consistent with an acute stroke and his current deficits, TNK was ordered. Patient administered TNK at 2207. - 22:16 - teleneurologist finally on the cart talking to the patient. Patient's blood pressure now elevated again at systolic of 190. Given an additional 5 mg of IV labetalol. - Nicardipine drip ordered. - Laboratory workup interpreted by myself showed normal WBC; stable electrolytes; normal troponin - CTA head and thrombus in the left anterior superior cerebellar artery and a small amount of thrombus extending in the basilar artery consistent with an acute stroke - ICU consulted for ICU admission post-TNK - Discussion was had with nonfarm animal caretaker about patient's case and need for admission - Hospitalist consulted for admission - Patient admitted to [facility] service for further evaluation and management. I have personally spent 62 minutes of critical care time in the direct management of this patient. This includes bedside care, interpretation of diagnostic studies, and testing, discussion with consultants, patient, and family members, and other required patient management activities. This 62 minutes is in excess of all separately billable procedures. ASSESSMENT AND PLAN: Diagnosis: CVA Plan: admit Past Med/Surg History Social History Smoking Status: Former smoker Second Hand Exposure: No; Do You Dip or Chew Tobacco: No; Tobacco Cessation Education Requested by Patient: No Hx Alcohol Use: Yes Alcohol type: wine Hx Substance Use: No Preferred Language: Gambian Communication Ability: Impaired Waiter/Waitress Captain Required: No Beliefs That Will Affect Care: None Current Living Situation: Spouse Other Information That Helps Us Care for You: No Feels Safe at Home: Yes Safety Concerns: Feels Safe At This Time Assistive Devices: None Allergies Allergies Allergy/AdvReac Type Severity Reaction Status Date / Time No Known Drug Allergies Allergy Unknown ` Verified 06/21/23 22:14 Home Meds Home Medications Medication Instructions Recorded Confirmed acetaminophen 500 mg tablet 500 - 1,000 mg PO Q6H PRN Pain 06/21/23 06/21/23 (Tylenol Extra Strength) amlodipine 2.5 mg tablet 2.5 mg PO DAILY 06/21/23 06/21/23 celecoxib 200 mg capsule 200 mg PO QAM 06/21/23 06/21/23 colchicine 0.6 mg tablet 0.6 mg PO DIRECTED PRN .gout 06/21/23 06/21/23 dronedarone 400 mg tablet (Multaq) 400 mg PO AMHS 06/21/23 06/21/23 dutasteride 0.5 mg capsule 0.5 mg PO QAM 06/21/23 06/21/23 lisinopril 30 mg tablet 30 mg PO DAILY 06/21/23 06/21/23 metoprolol tartrate 50 mg tablet 50 mg PO BID 06/21/23 06/21/23 sildenafil 50 mg tablet (Viagra) 50 mg PO DAILY PRN .. 06/21/23 06/21/23 simvastatin 10 mg tablet 10 mg PO QPM 06/21/23 06/21/23 Results & Data (ED) Vital Signs Vital Signs - 24 hr 06/21/23 21:31 06/21/23 21:41 06/21/23 21:45 Temperature 36.5 C Temperature Source Oral Pulse Rate 75 75 87 Pulse Rate [Apical] Pulse Rate from SpO2 Sensor 89 Pulse Strength [Apical] Respiratory Rate 18 18 Respiratory Effort / Characteristics Non-Labored Spontaneous Respiratory Depth Normal Respiratory Pattern Blood Pressure 197/101 H 197/101 H 184/104 H Blood Pressure [Left Arm] Blood Pressure Mean 133 130 Blood Pressure Mean [Left Arm] Blood Pressure Position [Left Arm] Pulse Oximetry 91 Oxygen Delivery Method Room Air Oxygen Flow Rate Sepsis Recent Fever Within 48 Hours No Sepsis New/Unexplained Change in Mental Status No Sepsis Action Taken by Nursing No Action Required 06/21/23 21:50 06/21/23 21:50 06/21/23 21:54 Temperature Temperature Source Pulse Rate 81 85 90 Pulse Rate [Apical] Pulse Rate from SpO2 Sensor 87 Pulse Strength [Apical] Respiratory Rate 18 Respiratory Effort / Characteristics Respiratory Depth Respiratory Pattern Blood Pressure 171/111 H 171/111 H Blood Pressure [Left Arm] Blood Pressure Mean 131 Blood Pressure Mean [Left Arm] Blood Pressure Position [Left Arm] Pulse Oximetry 92 Oxygen Delivery Method Oxygen Flow Rate Sepsis Recent Fever Within 48 Hours Sepsis New/Unexplained Change in Mental Status Sepsis Action Taken by Nursing 06/21/23 21:57 06/21/23 22:00 06/21/23 22:09 Temperature Temperature Source Pulse Rate 85 83 83 Pulse Rate [Apical] Pulse Rate from SpO2 Sensor 85 Pulse Strength [Apical] Respiratory Rate 17 Respiratory Effort / Characteristics Respiratory Depth Respiratory Pattern Blood Pressure 177/103 H 154/103 H 154/103 H Blood Pressure [Left Arm] Blood Pressure Mean 120 Blood Pressure Mean [Left Arm] Blood Pressure Position [Left Arm] Pulse Oximetry 92 Oxygen Delivery Method Oxygen Flow Rate Sepsis Recent Fever Within 48 Hours Sepsis New/Unexplained Change in Mental Status Sepsis Action Taken by Nursing 06/21/23 22:10 06/21/23 22:22 06/21/23 22:24 Temperature Temperature Source Pulse Rate 83 95 H Pulse Rate [Apical] 83 Pulse Rate from SpO2 Sensor Pulse Strength [Apical] Respiratory Rate 16 Respiratory Effort / Characteristics Respiratory Depth Respiratory Pattern Blood Pressure 154/103 H 169/123 H Blood Pressure [Left Arm] 206/97 H Blood Pressure Mean Blood Pressure Mean [Left Arm] 133 Blood Pressure Position [Left Arm] Pulse Oximetry 92 Oxygen Delivery Method Room Air Oxygen Flow Rate Sepsis Recent Fever Within 48 Hours Sepsis New/Unexplained Change in Mental Status Sepsis Action Taken by Nursing 06/21/23 22:29 06/21/23 22:38 06/21/23 22:44 Temperature Temperature Source Oral Pulse Rate 87 Pulse Rate [Apical] 89 77 Pulse Rate from SpO2 Sensor Pulse Strength [Apical] Normal Respiratory Rate 17 18 Respiratory Effort / Characteristics Non-Labored Spontaneous Respiratory Depth Normal Respiratory Pattern Regular Blood Pressure 169/123 H Blood Pressure [Left Arm] 171/105 H 171/105 H Blood Pressure Mean Blood Pressure Mean [Left Arm] 127 127 Blood Pressure Position [Left Arm] Sitting Pulse Oximetry 94 94 Oxygen Delivery Method Nasal Cannula Nasal Cannula Oxygen Flow Rate 2 2 Sepsis Recent Fever Within 48 Hours Sepsis New/Unexplained Change in Mental Status Sepsis Action Taken by Nursing 06/21/23 23:08 06/21/23 23:23 06/21/23 23:38 Temperature Temperature Source Pulse Rate Pulse Rate [Apical] 86 92 H 79 Pulse Rate from SpO2 Sensor Pulse Strength [Apical] Respiratory Rate 20 19 19 Respiratory Effort / Characteristics Respiratory Depth Respiratory Pattern Blood Pressure Blood Pressure [Left Arm] 115/90 141/78 H 158/90 H Blood Pressure Mean Blood Pressure Mean [Left Arm] 98 99 112 Blood Pressure Position [Left Arm] Pulse Oximetry 93 94 94 Oxygen Delivery Method Nasal Cannula Nasal Cannula Nasal Cannula Oxygen Flow Rate 2 2 2 Sepsis Recent Fever Within 48 Hours Sepsis New/Unexplained Change in Mental Status Sepsis Action Taken by Nursing Laboratory Data 06/21/23 21:32 06/21/23 21:32 Lab Results 06/21/23 06/21/23 Range/Units 21:32 21:35 WBC 9.14 (4.8-10.8) K/ul RBC 4.64 L (4.70-6.10) M/uL Hgb 15.2 (14.0-18.0) g/dl POC Hgb 15.0 (14.0-18.0) g/dl Hct 43.2 (42.0-52.0) % POC Hct 44 (42-52) % MCV 93.1 (80.0-100.0) fL MCH 32.8 (25.0-34.0) pg MCHC 35.2 (32.0-36.0) g/dL RDW Std Deviation 43.8 (36.4-46.3) fL RDW Coeff of Jennifer 12.8 (11.5-14.5) % Plt Count 184 (130-400) K/uL MPV 12.3 (9.4-12.4) fL Immature Gran % (Auto) 0.5 % Neut % (Auto) 82.5 % Lymph % (Auto) 7.2 % Young % (Auto) 8.4 % Eos % (Auto) 1.0 % Baso % (Auto) 0.4 % Neut # (Auto) 7.53 H (1.40-6.50) K/uL Lymph # (Auto) 0.66 L (1.20-3.40) K/uL Young # (Auto) 0.77 H (0.11-0.59) K/uL Eos # (Auto) 0.09 (0.00-0.50) K/uL Baso # (Auto) 0.04 (0.00-0.20) K/uL Immature Gran # (Auto) 0.05 (0.01-0.20) K/uL PT 11.3 (9.0-12.0) Seconds INR 1.0 (0.9-1.1) APTT 27 (21-31) Seconds PTT Ratio 1.0 POC Sodium 139 (135-144) mmol/L Sodium 135 L (136-145) mmol/L POC Potassium 3.9 (3.3-5.0) mmol/L Potassium 3.8 (3.5-5.1) mmol/L POC Chloride 103 (101-112) mmol/L Chloride 104 (98-107) mmol/L Carbon Dioxide 23 (21-32) mmol/L POC Total CO2 23 L (24-31) mmol/L Anion Gap 8 (3-11) POC Anion Gap 17.0 (16-25) mmol/L POC BUN 18 (7-18) mg/dl BUN 18 (6-23) mg/dl Creatinine 1.23 (0.6-1.4) mg/dl POC Creatinine 1.3 (0.6-1.3) mg/dl Est Cr Clr Drug Dosing 45.5 ml/min Est GFR ( Amer) 62.5 ml/min Est GFR (Non-Af Amer) 54.0 ml/min BUN/Creatinine Ratio 14.6 (10-20) Glucose 109 H (70-99(Fasting)) mg/dl POC Glucose (other) 109 H (70-99) mg/dl Calcium 9.0 (8.6-10.3) mg/dl POC Ioniz Calcium [place] 1.07 L (1.12-1.32) mmol/l Magnesium 1.9 (1.7-2.4) mg/dl Total Bilirubin 0.9 (0.2-1.0) mg/dl AST 21 (13-39) U/L ALT 16 (7-52) U/L Alkaline Phosphatase 110 H (34-104) U/L Troponin I High Sens 8.1 (0-20) pg/ml Total Protein 7.4 (6.0-8.3) gm/dl Albumin 4.2 (3.4-5.0) gm/dl Globulin 3.2 (2.5-4.0) gm/dl Albumin/Globulin Ratio 1.3 (0.9-2) Blood Type AB Positive Antibody Screen NEGATIVE Administered Medications Nicardipine HCl 25 mg/ Sodium (Chloride) 250 mls @ 50 mls/hr IV .Q5H BERNIE; Protocol Stop: 07/21/23 22:29 Last Admin: 06/21/23 22:40 Dose: 5 mg/hr, 50 mls/hr Documented By: DANIELLA Co-signed By: HARMONY Ondansetron HCl (Ondansetron Inj 2 Mg/Ml 2 Ml Vial) 4 mg IV NOW STA Stop: 06/21/23 23:34 Last Admin: 06/21/23 23:38 Dose: 4 mg Documented By: DANIELLA Discontinued Medications Tenecteplase 20 mg/ Syringe 4 mls @ 48 mls/min IV NOW ONE; Protocol Stop: 06/21/23 22:05 Last Admin: 06/21/23 22:06 Dose: 48 mls/min Documented By: DANIELLA Co-signed By: DIRK Ioversol (Optiray 320 125ml) 118 ml IV ONCE ONE Stop: 06/21/23 21:22 Last Admin: 06/21/23 21:21 Dose: 118 ml Documented By: DOUGLAS Labetalol HCl (Labetalol Hcl Iv 5 Mg/Ml 20ml) Confirm Administered Dose 5 mg IV .STK-MED ONE Stop: 06/21/23 21:40 Last Admin: 06/21/23 21:50 Dose: 5 mg Documented By: DANIELLA Co-signed By: DIRK Labetalol HCl (Labetalol Hcl Iv 5 Mg/Ml 20ml) 5 mg IV NOW STA Stop: 06/21/23 21:49 Last Admin: 06/21/23 21:41 Dose: 5 mg Documented By: DANIELLA Co-signed By: DIRK Labetalol HCl (Labetalol Hcl Iv 5 Mg/Ml 20ml) Confirm Administered Dose 5 mg IV .STK-MED ONE Stop: 06/21/23 21:50 Last Admin: 06/21/23 21:51 Dose: Not Given Documented By: DANIELLA Labetalol HCl (Labetalol Hcl Iv 5 Mg/Ml 20ml) 10 mg IV Q10M PRN PRN Reason: SBP > 185 or DBP > 110mmHg Stop: 06/21/23 22:55 Last Admin: 06/21/23 22:24 Dose: 10 mg Documented By: DANIELLA Co-signed By: HARMONY Admin: 06/21/23 21:57 Dose: 10 mg Documented By: DANIELLA Co-signed By: DIRK Ondansetron HCl (Ondansetron Inj 2 Mg/Ml 2 Ml Vial) 4 mg IV NOW STA Stop: 06/21/23 22:36 Last Admin: 06/21/23 22:40 Dose: 4 mg Documented By: DANIELLA Sodium Chloride (Sodium Chloride 0.9% 10ml Flush) 20 ml IV NOW STA Stop: 06/21/23 21:55 Last Admin: 06/21/23 22:08 Dose: 20 ml Documented By: DANIELLA Imaging Data Radiologist's Impression: Head CT 06/21/23 21:[address] OF THE BRAIN; CT ANGIOGRAM OF THE BRAIN; CT ANGIOGRAM OF THE NECK CLINICAL HISTORY: Neurological deficit. Stroke like symptoms. Right-sided weakness. Slurred speech. COMPARISON STUDY: CT angiogram of the head and neck dated 12/30/2017. MRI of the brain dated 12/31/2017. TECHNIQUE: Unenhanced axial CT scan of the brain is performed. Subsequently, following the IV administration of 118 of Optiray 320, CT angiogram of the head and neck was performed from the aortic arch to the vertex. Images are reviewed in the axial, sagittal, and coronal planes. 3-D MIPS images are created and assessed. IV contrast was administered without complication. All measurements were calculated based on NASCET criteria. A dose lowering technique was utilized adhering to the principles of ALARA. CT DOSE: 1380.12 mGy.cm FINDINGS: Brain parenchyma: There is age-related involutional change noting mild subcortical and periventricular microcatheter pathic disease. Right occipital encephalomalacia is consistent with a remote infarct. Chronic lacunar infarcts are noted in the right thalamus and the right cerebellar hemisphere. There is no hemorrhage, mass effect, or evidence of acute territorial ischemia by CT criteria. There is no evidence of enhancing mass lesion on the angiogram phase images. The ventricles, sulci, and cisterns are prominent secondary to involutional change. Sol[place]-white matter differentiation is preserved. No extra- axial fluid collection is seen. Thoracic aorta: There is atherosclerotic calcification of the thoracic aorta. Visualized portions of the thoracic aorta are normal in caliber. The aortic arch demonstrates standard 3-vessel anatomy. Right carotid arterial system: The right common carotid artery is widely patent, as are the right internal and external carotid arteries. Calcified plaque is seen in the carotid bulb. Left carotid arterial system: The left common carotid artery is widely patent, as are the left internal and external carotid arteries. Calcified plaque is noted in the carotid bulb. Vertebral arteries: The vertebral arteries are widely patent bilaterally and codominant in the neck. Subclavian arteries: Widely patent bilaterally. Intracranial vasculature: There is atherosclerotic calcification of the cavernous carotid and vertebral arteries. The internal carotid arteries are patent at the skull base, as are the anterior and middle cerebral arteries bilaterally. The vertebrobasilar system and posterior cerebral arteries are widely patent. The left vertebral artery is dominant. A posterior communicating artery is noted on the left. 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 This is best seen on image #106. Additional foci of focal vessel caliber seen throughout the intracranial circulation. No aneurysm is identified.. Jugular veins: Patent bilaterally. Dural sinuses: Patent. Lung apices: Partially visualized upper lobe lung parenchyma appears clear. Soft tissues: The visualized pharyngeal soft tissues are normal in appearance noting angiographic phase technique. The oropharyngeal airway appears widely patent. The salivary and thyroid glands are normal in appearance. No cervical lymphadenopathy is seen. Skeletal structures: The skeletal structures are osteopenic. The calvarium appears intact. The cervical spine is maintained noting mild spondylosis. Orbits: The bony orbits are intact. Orbital contents are normal as visualized. Sinuses and mastoids: The paranasal sinuses are clear. There is a large right mastoid effusion. Fluid fills the right middle ear. The left mastoid air cells are well pneumatized. IMPRESSION: 1. 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 This represents a significant change from the 12/30/2017 CT angiogram of the brain and likely represents acute stroke. 2. The brain parenchyma is normal in appearance. There is no hemorrhage or mass effect. 3. Otherwise unremarkable CT angiogram of the brain. 4. Unremarkable CT angiogram of the neck. ACT 112: Negative or not required by law. Electronically signed by: Ramu Gonzales M.D. 06/21/2023 9:45 PM Head CTA 06/21/23 21:[address] OF THE BRAIN; CT ANGIOGRAM OF THE BRAIN; CT ANGIOGRAM OF THE NECK CLINICAL HISTORY: Neurological deficit. Stroke like symptoms. Right-sided weakness. Slurred speech. COMPARISON STUDY: CT angiogram of the head and neck dated 12/30/2017. MRI of the brain dated 12/31/2017. TECHNIQUE: Unenhanced axial CT scan of the brain is performed. Subsequently, following the IV administration of 118 of Optiray 320, CT angiogram of the head and neck was performed from the aortic arch to the vertex. Images are reviewed in the axial, sagittal, and coronal planes. 3-D MIPS images are created and assessed. IV contrast was administered without complication. All measurements were calculated based on NASCET criteria. A dose lowering technique was utilized adhering to the principles of ALARA. CT DOSE: 1380.12 mGy.cm FINDINGS: Brain parenchyma: There is age-related involutional change noting mild subcortical and periventricular microcatheter pathic disease. Right occipital encephalomalacia is consistent with a remote infarct. Chronic lacunar infarcts are noted in the right thalamus and the right cerebellar hemisphere. There is no hemorrhage, mass effect, or evidence of acute territorial ischemia by CT criteria. There is no evidence of enhancing mass lesion on the angiogram phase images. The ventricles, sulci, and cisterns are prominent secondary to involutional change. Sol[place]-white matter differentiation is preserved. No extra- axial fluid collection is seen. Thoracic aorta: There is atherosclerotic calcification of the thoracic aorta. Visualized portions of the thoracic aorta are normal in caliber. The aortic arch demonstrates standard 3-vessel anatomy. Right carotid arterial system: The right common carotid artery is widely patent, as are the right internal and external carotid arteries. Calcified plaque is seen in the carotid bulb. Left carotid arterial system: The left common carotid artery is widely patent, as are the left internal and external carotid arteries. Calcified plaque is noted in the carotid bulb. Vertebral arteries: The vertebral arteries are widely patent bilaterally and codominant in the neck. Subclavian arteries: Widely patent bilaterally. Intracranial vasculature: There is atherosclerotic calcification of the cavernous carotid and vertebral arteries. The internal carotid arteries are patent at the skull base, as are the anterior and middle cerebral arteries bilaterally. The vertebrobasilar system and posterior cerebral arteries are widely patent. The left vertebral artery is dominant. A posterior communicating artery is noted on the left. 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 This is best seen on image #106. Additional foci of focal vessel caliber seen throughout the intracranial circulation. No aneurysm is identified.. Jugular veins: Patent bilaterally. Dural sinuses: Patent. Lung apices: Partially visualized upper lobe lung parenchyma appears clear. Soft tissues: The visualized pharyngeal soft tissues are normal in appearance noting angiographic phase technique. The oropharyngeal airway appears widely patent. The salivary and thyroid glands are normal in appearance. No cervical lymphadenopathy is seen. Skeletal structures: The skeletal structures are osteopenic. The calvarium appears intact. The cervical spine is maintained noting mild spondylosis. Orbits: The bony orbits are intact. Orbital contents are normal as visualized. Sinuses and mastoids: The paranasal sinuses are clear. There is a large right mastoid effusion. Fluid fills the right middle ear. The left mastoid air cells are well pneumatized. IMPRESSION: 1. 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 This represents a significant change from the 12/30/2017 CT angiogram of the brain and likely represents acute stroke. 2. The brain parenchyma is normal in appearance. There is no hemorrhage or mass effect. 3. Otherwise unremarkable CT angiogram of the brain. 4. Unremarkable CT angiogram of the neck. ACT 112: Negative or not required by law. Electronically signed by: Ramu Gonzales M.D. 06/21/2023 9:45 PM Neck CTA 06/21/23 21:[address] OF THE BRAIN; CT ANGIOGRAM OF THE BRAIN; CT ANGIOGRAM OF THE NECK CLINICAL HISTORY: Neurological deficit. Stroke like symptoms. Right-sided weakness. Slurred speech. COMPARISON STUDY: CT angiogram of the head and neck dated 12/30/2017. MRI of the brain dated 12/31/2017. TECHNIQUE: Unenhanced axial CT scan of the brain is performed. Subsequently, following the IV administration of 118 of Optiray 320, CT angiogram of the head and neck was performed from the aortic arch to the vertex. Images are reviewed in the axial, sagittal, and coronal planes. 3-D MIPS images are created and assessed. IV contrast was administered without complication. All measurements were calculated based on NASCET criteria. A dose lowering technique was utilized adhering to the principles of ALARA. CT DOSE: 1380.12 mGy.cm FINDINGS: Brain parenchyma: There is age-related involutional change noting mild subcortical and periventricular microcatheter pathic disease. Right occipital encephalomalacia is consistent with a remote infarct. Chronic lacunar infarcts are noted in the right thalamus and the right cerebellar hemisphere. There is no hemorrhage, mass effect, or evidence of acute territorial ischemia by CT criteria. There is no evidence of enhancing mass lesion on the angiogram phase images. The ventricles, sulci, and cisterns are prominent secondary to involutional change. Solano-white matter differentiation is preserved. No extra- axial fluid collection is seen. Thoracic aorta: There is atherosclerotic calcification of the thoracic aorta. Visualized portions of the thoracic aorta are normal in caliber. The aortic arch demonstrates standard 3-vessel anatomy. Right carotid arterial system: The right common carotid artery is widely patent, as are the right internal and external carotid arteries. Calcified plaque is seen in the carotid bulb. Left carotid arterial system: The left common carotid artery is widely patent, as are the left internal and external carotid arteries. Calcified plaque is noted in the carotid bulb. Vertebral arteries: The vertebral arteries are widely patent bilaterally and codominant in the neck. Subclavian arteries: Widely patent bilaterally. Intracranial vasculature: There is atherosclerotic calcification of the cavernous carotid and vertebral arteries. The internal carotid arteries are patent at the skull base, as are the anterior and middle cerebral arteries bilaterally. The vertebrobasilar system and posterior cerebral arteries are widely patent. The left vertebral artery is dominant. A posterior communicating artery is noted on the left. 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 This is best seen on image #106. Additional foci of focal vessel caliber seen throughout the intracranial circulation. No aneurysm is identified.. Jugular veins: Patent bilaterally. Dural sinuses: Patent. Lung apices: Partially visualized upper lobe lung parenchyma appears clear. Soft tissues: The visualized pharyngeal soft tissues are normal in appearance noting angiographic phase technique. The oropharyngeal airway appears widely patent. The salivary and thyroid glands are normal in appearance. No cervical lymphadenopathy is seen. Skeletal structures: The skeletal structures are osteopenic. The calvarium appears intact. The cervical spine is maintained noting mild spondylosis. Orbits: The bony orbits are intact. Orbital contents are normal as visualized. Sinuses and mastoids: The paranasal sinuses are clear. There is a large right mastoid effusion. Fluid fills the right middle ear. The left mastoid air cells are well pneumatized. IMPRESSION: 1. 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 This represents a significant change from the 12/30/2017 CT angiogram of the brain and likely represents acute stroke. 2. The brain parenchyma is normal in appearance. There is no hemorrhage or mass effect. 3. Otherwise unremarkable CT angiogram of the brain. 4. Unremarkable CT angiogram of the neck. ACT 112: Negative or not required by law. Electronically signed by: Ramu Gonzales M.D. 06/21/2023 9:[address] 06/21/23 22:41 Exam(s): CT HEAD Without Contrast EXAM: CT Head Without Intravenous Contrast CLINICAL HISTORY: Reason for exam: vomiting post tnk. TECHNIQUE: Axial computed tomography images of the head/brain without intravenous contrast. CTDI is 38.1 mGy and DLP is 624.41 mGy-cm. Automated exposure control was utilized for the study. A dose lowering technique was utilized adhering to the principles of ALARA. COMPARISON: No relevant prior studies available. FINDINGS: No acute intracranial hemorrhage. No midline shift or mass effect. The territorial solano-white matter differentiation is maintained throughout. Age-related cerebral volume loss. Periventricular and subcortical white matter hypoattenuation, consistent with chronic microangiopathy. The visualized orbits appear grossly unremarkable. The calvarium is intact. The visualized paranasal sinuses and mastoid air cells are grossly clear. IMPRESSION: No acute intracranial hemorrhage, midline shift, or mass effect. Electronically signed by: Cj Castro MD 06/21/23 23:17 PM Discharge Plan Visit Data Chief Complaint: Stroke Alert Stated Complaint: STROKE ALERT/SYMPTOMS ED Provider: Sushma White Discharge Problem: Acute CVA (cerebrovascular accident) Forms Stand Alone Forms: My [facility] Prescriptions Prescriptions: No Action celecoxib 200 mg capsule 200 mg PO QAM sildenafil [Viagra] 50 mg Tablet 50 mg PO DAILY PRN (Reason: ..) Rx Instructions: administer 30 minutes to 4 hours before activity simvastatin 10 mg tablet 10 mg PO QPM amlodipine 2.5 mg tablet 2.5 mg PO DAILY acetaminophen [Tylenol Extra Strength] 500 mg Tablet 500 - 1,000 mg PO Q6H PRN (Reason: Pain) metoprolol tartrate 50 mg tablet 50 mg PO BID lisinopril 30 mg tablet 30 mg PO DAILY colchicine 0.6 mg tablet 0.6 mg PO DIRECTED PRN (Reason: .gout) Rx Instructions: May repeat once in 24 hrs. dutasteride 0.5 mg capsule 0.5 mg PO QAM Multaq 400 mg tablet 400 mg PO [facility] Referrals Referrals: Julien Bundy MD [Primary Care Provider] -
[2023-06-21] MEDS: LABETALOL HCL IV 5 MG/ML 20ML IV STA (21:41)
--- NOTE | 2023-06-21 21:48 | CT Scan Report ---
UNENHANCED CT OF THE BRAIN; CT ANGIOGRAM OF THE BRAIN; CT ANGIOGRAM OF THE NECK CLINICAL HISTORY: Neurological deficit. Stroke like symptoms. Right-sided weakness. Slurred speech. COMPARISON STUDY: CT angiogram of the head and neck dated 12/30/2017. MRI of the brain dated 8. TECHNIQUE: Unenhanced axial CT scan of the brain is performed. Subsequently, following the IV adminis tration of 118 of [address] [address], CT angiogram of the head and neck was performed from the aortic arch t o the vertex. Images are reviewed in the axial, sagittal, and coronal planes. 3-D MIPS images are cre ated and assessed. IV contrast was administered without complication. All measurements were calculate d based on NASCET criteria. A dose lowering technique was utilized adhering to the principles of ALA RA. CT DOSE: 1380.12 mGy.cm FINDINGS: Brain parenchyma: There is age-related involutional change noting mild subcortical and periventricula r microcatheter pathic disease. Right occipital encephalomalacia is consistent with a remote infarct. Chronic lacunar infarcts are noted in the right thalamus and the right cerebellar hemisphere. There is no hemorrhage, mass effect, or evidence of acute territorial ischemia by CT criteria. There is no evidence of enhancing mass lesion on the angiogram phase images. The ventricles, sulci, and cisterns are prominent secondary to involutional change. Solano-white matter differentiation is preserved. No ex tra-axial fluid collection is seen. Thoracic aorta: There is atherosclerotic calcification of the thoracic aorta. Visualized portions of the thoracic aorta are normal in caliber. The aortic arch demonstrates standard 3-vessel anatomy. Right carotid arterial system: The right common carotid artery is widely patent, as are the right int ernal and external carotid arteries. Calcified plaque is seen in the carotid bulb. Left carotid arterial system: The left common carotid artery is widely patent, as are the left marketing summer intern al and external carotid arteries. Calcified plaque is noted in the carotid bulb. Vertebral arteries: The vertebral arteries are widely patent bilaterally and codominant in the neck. Subclavian arteries: Widely patent bilaterally. Intracranial vasculature: There is atherosclerotic calcification of the cavernous carotid and vertebr al arteries. The internal carotid arteries are patent at the skull base, as are the anterior and midd le cerebral arteries bilaterally. The vertebrobasilar system and posterior cerebral arteries are wide ly patent. The left vertebral artery is dominant. A posterior communicating artery is noted on the le ft. 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 This is best seen on image #106. Additional foci of focal vessel caliber seen th roughout the intracranial circulation. No aneurysm is identified.. Jugular veins: Patent bilaterally. Dural sinuses: Patent. Lung apices: Partially visualized upper lobe lung parenchyma appears clear. Soft tissues: The visualized pharyngeal soft tissues are normal in appearance noting angiographic pha se technique. The oropharyngeal airway appears widely patent. The salivary and thyroid glands are nor mal in appearance. No cervical lymphadenopathy is seen. Skeletal structures: The skeletal structures are osteopenic. The calvarium appears intact. The cervic al spine is maintained noting mild spondylosis. Orbits: The bony orbits are intact. Orbital contents are normal as visualized. Sinuses and mastoids: The paranasal sinuses are clear. There is a large right mastoid effusion. Fluid fills the right middle ear. The left mastoid air cells are well pneumatized. IMPRESSION: 1. 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 This represents a significant change from the 12/30/2017 CT angiogram of the brain and likely represents acute stroke. 2. The brain parenchyma is normal in appearance. There is no hemorrhage or mass effect. 3. Otherwise unremarkable CT angiogram of the brain. 4. Unremarkable CT angiogram of the neck. ACT 112: Negative or not required by law. Electronically signed by: Ramu Gonzales M.D. 06/21/2023 9:45 PM
[2023-06-21] MEDS: LABETALOL HCL IV 5 MG/ML 20ML IV ONE ×2 (21:50→21:51)
[2023-06-21 21:51] LABS: iSTAT Creatinine 1.3 mg/dl (0.6-1.3); iSTAT Ionized Calcium 1.07 mmol/l (1.12-1.32); iSTAT Potassium 3.9 mmol/L (3.3-5.0)
[2023-06-21] MEDS ORDERED: STAT IV/IM STA (21:54)
[2023-06-21 21:55] LABS: Partial Thromboplastin Time 27 Seconds (21-31); Prothrombin Time 11.3 Seconds (9.0-12.0)
[2023-06-21] MEDS: LABETALOL HCL IV 5 MG/ML 20ML IV PRN (21:57)
[2023-06-21] MEDS ORDERED: No Aspirin within 24hrs of THROMBOLYTIC-Stroke PO SCH (22:00)
[2023-06-21 22:02] LABS: Basophils # (auto) 0.04 K/uL (0.00-0.20); Basophils % (auto) 0.4 %; Eosinophils # (auto) 0.09 K/uL (0.00-0.50); Hematocrit (blood only) 43.2 % (42.0-52.0); Hemoglobin 15.2 g/dl (14.0-18.0); Immature Granulocytes # (auto) 0.05 K/uL (0.01-0.20); Immature Granulocytes % (auto) 0.5 %; Lymphocytes # (auto) 0.66 K/uL (1.20-3.40); Lymphocytes % (auto) 7.2 %; Mean Corpuscular Hemoglobin 32.8 pg (25.0-34.0); Mean Corpuscular Hgb Conc 35.2 g/dL (32.0-36.0); Mean Corpuscular Volume 93.1 fL (80.0-100.0); Mean Platelet Volume 12.3 fL (9.4-12.4); Monocytes # (auto) 0.77 K/uL (0.11-0.59); Monocytes % (auto) 8.4 %; Neutrophils # (auto) 7.53 K/uL (1.40-6.50); Neutrophils % (auto) 82.5 %; Platelet Count 184 K/uL (130-400); RDW Coefficient of Variation 12.8 % (11.5-14.5); RDW Standard Deviation 43.8 fL (36.4-46.3); Red Blood Count 4.64 M/uL (4.70-6.10); White Blood Count 9.14 K/ul (4.8-10.8)
[2023-06-21 22:05] LABS: Albumin Globulin Ratio 1.3 (0.9-2); Albumin Level 4.2 gm/dl (3.4-5.0); BUN Creatinine Ratio 14.6 (10-20); Bilirubin,Total 0.9 mg/dl (0.2-1.0); Creatinine Clr Calc Pharmacy 45.5 ml/min; Est GFR (African American) 62.5 ml/min; Globulin 3.2 gm/dl (2.5-4.0); Magnesium 1.9 mg/dl (1.7-2.4); Potassium 3.8 mmol/L (3.5-5.1); Total Protein 7.4 gm/dl (6.0-8.3)
[2023-06-21] MEDS: TENECTEPLASE 20 MG in SYRINGE 0 ML IV ONE (22:06)
[2023-06-21] MEDS: SODIUM CHLORIDE 0.9% 10ML FLUSH IV STA (22:08)
[2023-06-21 22:11] LABS: Troponin I High Sensitivity 8.1 pg/ml (0-20)
[2023-06-21] MEDS: ONDANSETRON INJ 2 MG/ML 2 ML VIAL IV STA ×2 (22:40→23:38)
[2023-06-21] MEDS: niCARdipine 25 MG in SODIUM CHLORIDE 0.9% 240 ML IV SCH (22:40)
--- NOTE | 2023-06-21 23:18 | CT Scan Report ---
Exam(s): CT HEAD Without Contrast EXAM: CT Head Without Intravenous Contrast CLINICAL HISTORY: Reason for exam: vomiting post tnk. TECHNIQUE: Axial computed tomography images of the head/brain without intravenous contrast. CTDI is 38.1 mGy and DLP is 624.41 mGy-cm. Automated exposure control was utilized for the study. A dose lowering technique was utilized adhering to the principles of ALARA. COMPARISON: No relevant prior studies available. FINDINGS: No acute intracranial hemorrhage. No midline shift or mass effect. The territorial jones-white matter differentiation is maintained throughout. Age-related cerebral volume loss. Periventricular and subcortical white matter hypoattenuation, consistent with chronic microangiopathy. The visualized orbits appear grossly unremarkable. The calvarium is intact. The visualized paranasal sinuses and mastoid air cells are grossly clear. IMPRESSION: No acute intracranial hemorrhage, midline shift, or mass effect. Electronically signed by: Cj Castro MD 06/21/23 23:17 PM
--- NOTE | 2023-06-21 23:45 | History & Physical Report ---
Date of Service June 21, 2023 Assessment & Plan (1) Acute CVA (cerebrovascular accident): Plan: Probable left MCA stroke, some improvement in right-sided weakness post TNKase administration at the ER Past history TIA, currently not on antiplatelet Rx secondary to hematuria; of note aspirin still listed as active medication in patient's outpatient med list A-fib not on anticoagulation secondary to hematuria Hypertensive crisis secondary to above Drastic BP lowering noted after IV labetalol and nicardipine administration at the ER Gross hematuria at the ER post TNKase administration, past history hematuria related to antiplatelet/anticoagulant Rx hx CAD status post stent hyperlipidemia, statin Rx past tobacco abuse ICU monitoring post TNKase administration neurochecks Permissive hypertension for now, stop nicardipine drip Continue statin Rx MRI brain, TTE for stroke workup Neurology consult Re: CVA Urology consult Re: Gross hematuria (Case discussed with Dr. Donaldson following ICU provider request who recommends against catheter placement for now.) Follow H&H, transfuse PRBC if hemoglobin less than 8 and or for symptomatic anemia DVT prophylaxis. SCDs Re: Gross hematuria Full code Patient requesting updates providers. Ms. Solimanara Jorge A, contact #[phone]. Text document was generated using [employer] voice recognition software. It may contain grammatical or spelling errors. Kindly contact undersigned for clarification of any documentation item in question. History of Present Illness Chief Complaint: Strokelike symptoms Primary Care Provider: Dr. Abraham History obtained from patient, family, and records. Limited history from patient secondary to dysarthria. Medical history significant for CAD status post stent, PAF, TIA, hypertension, hyperlipidemia, BPH status post surgery, gout, past tobacco abuse. Last confinement December 2017 for TIA presenting as transient diplopia and left arm/leg ataxia. Coumadin recommended by neurologist given history of A-fib. Patient declined given history of massive hematuria in the past. Patient discharged on dual antiplatelet Rx. Antiplatelet Rx subsequently discontinued outpatient due to intermittent hematuria episodes as per . No outpatient Neurology follow-up postdischarge. Few hours ago, patient found by on the ground with slurred speech, right facial droop, and right-sided weakness. Patient denies headache, chest pain, SOB. Stroke alert called upon arrival at the ER. Highest SBP of 200s documented at the ER. TNKase administered following [facility] neurology recommendations. IV labetalol bolus followed by nicardipine drip initiated at the ER SBP currently 110s. Gross hematuria without pain noted at the ER. Patient denies abdominal/flank pain symptoms. 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 Allergies Allergy/AdvReac Type Severity Reaction Status Date / Time No Known Drug Allergies Allergy Unknown ` Verified 06/21/23 22:14 Home Medications Medication Instructions Recorded Confirmed Type acetaminophen 500 mg tablet 500 - 1,000 mg PO Q6H PRN Pain 06/21/23 06/21/23 History (Tylenol Extra Strength) amlodipine 2.5 mg tablet 2.5 mg PO DAILY 06/21/23 06/21/23 History celecoxib 200 mg capsule 200 mg PO QAM 06/21/23 06/21/23 History colchicine 0.6 mg tablet 0.6 mg PO DIRECTED PRN .gout 06/21/23 06/21/23 History dronedarone 400 mg tablet (Multaq) 400 mg PO AMHS 06/21/23 06/21/23 History dutasteride 0.5 mg capsule 0.5 mg PO QAM 06/21/23 06/21/23 History lisinopril 30 mg tablet 30 mg PO DAILY 06/21/23 06/21/23 History metoprolol tartrate 50 mg tablet 50 mg PO BID 06/21/23 06/21/23 History sildenafil 50 mg tablet (Viagra) 50 mg PO DAILY PRN .. 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 Beliefs That Will Affect Care: None Current Living Situation: Spouse Other Information That Helps Us Care for You: No Feels Safe at Home: Yes Safety Concerns: Feels Safe At This Time Assistive Devices: None Review of Systems Review of Systems: Could not be reliably obtained secondary to dysarthria Physical Exam Physical Exam: GENERAL: Comfortable, pleasant, dysarthric, no respiratory distress SKIN: Normal color, warm HEENT: Partial alopecia, pink palpebral conjunctivae, no ptosis, right facial droop, dry buccal mucosa NECK : Supple, no tenderness CHEST : CTA, no tenderness HEART : Irregular, no obvious murmurs ABDOMEN: Blood-soaked blanket covering groin, some distention, nontender EXTREMITIES : No LE swelling/tenderness, no other conspicuous deformities noted NEUROLOGIC : Coherent, right facial droop, dysarthric, MMTs RUE/RLE 3/5, LUE/LLE 4/5 Results & Data Results & Data Vital Signs (Past 12 Hours) Vital Signs Temp Pulse Pulse Resp BP BP Pulse Ox 06/21/23 23:38 79 19 158/90 H 94 06/21/23 23:23 92 H 19 141/78 H 94 06/21/23 23:08 86 20 115/90 93 06/21/23 22:44 77 18 171/105 H 94 06/21/23 22:38 89 17 171/105 H 94 06/21/23 22:29 87 169/123 H 06/21/23 22:24 95 H 169/123 H 06/21/23 22:22 83 16 206/97 H 92 06/21/23 22:10 83 154/103 H 06/21/23 22:09 83 154/103 H 06/21/23 22:00 83 17 154/103 H 92 06/21/23 21:57 85 177/103 H 06/21/23 21:54 90 06/21/23 21:50 85 18 171/111 H 92 06/21/23 21:50 81 171/111 H 06/21/23 21:45 87 18 184/104 H 91 06/21/23 21:41 75 197/101 H 06/21/23 21:31 36.5 C 75 18 197/101 H O2 Del Method O2 Flow Rate 06/21/23 23:38 Nasal Cannula 2 06/21/23 23:23 Nasal Cannula 2 06/21/23 23:08 Nasal Cannula 2 06/21/23 22:44 Nasal Cannula 2 06/21/23 22:38 Nasal Cannula 2 06/21/23 22:29 06/21/23 22:24 06/21/23 22:22 Room Air 06/21/23 22:10 06/21/23 22:09 06/21/23 22:00 06/21/23 21:57 06/21/23 21:54 06/21/23 21:50 06/21/23 21:50 06/21/23 21:45 06/21/23 21:41 06/21/23 21:31 Room Air Laboratory Results Laboratory Results WBC 9.14 K/ul (4.8-10.8) 06/21/23 21:32 RBC 4.64 M/uL (4.70-6.10) L 06/21/23 21:32 Hgb 15.2 g/dl (14.0-18.0) 06/21/23 21:32 POC Hgb 15.0 g/dl (14.0-18.0) 06/21/23 21:35 Hct 43.2 % (42.0-52.0) 06/21/23 21:32 POC Hct 44 % (42-52) 06/21/23 21:35 MCV 93.1 fL (80.0-100.0) 06/21/23 21:32 MCH 32.8 pg (25.0-34.0) 06/21/23 21:32 MCHC 35.2 g/dL (32.0-36.0) 06/21/23 21:32 RDW Std Deviation 43.8 fL (36.4-46.3) 06/21/23 21:32 RDW Coeff of Jennifer 12.8 % (11.5-14.5) 06/21/23 21:32 Plt Count 184 K/uL (130-400) 06/21/23 21:32 MPV 12.3 fL (9.4-12.4) 06/21/23 21:32 Immature Gran % (Auto) 0.5 % 06/21/23 21:32 Neut % (Auto) 82.5 % 06/21/23 21:32 Lymph % (Auto) 7.2 % 06/21/23 21:32 [place] % (Auto) 8.4 % 06/21/23 21:32 Eos % (Auto) 1.0 % 06/21/23 21:32 Baso % (Auto) 0.4 % 06/21/23 21:32 Neut # (Auto) 7.53 K/uL (1.40-6.50) H 06/21/23 21:32 Lymph # (Auto) 0.66 K/uL (1.20-3.40) L 06/21/23 21:32 [place] # (Auto) 0.77 K/uL (0.11-0.59) H 06/21/23 21:32 Eos # (Auto) 0.09 K/uL (0.00-0.50) 06/21/23 21:32 Baso # (Auto) 0.04 K/uL (0.00-0.20) 06/21/23 21:32 Immature Gran # (Auto) 0.05 K/uL (0.01-0.20) 06/21/23 21:32 PT 11.3 Seconds (9.0-12.0) 06/21/23 21:32 INR 1.0 (0.9-1.1) 06/21/23 21:32 APTT 27 Seconds (21-31) 06/21/23 21: PTT Ratio 1.0 06/21/23 21:32 POC Sodium 139 mmol/L (135-144) 06/21/23 21:35 Sodium 135 mmol/L (136-145) L 06/21/23 21:32 POC Potassium 3.9 mmol/L (3.3-5.0) 06/21/23 21:35 Potassium 3.8 mmol/L (3.5-5.1) 06/21/23 21:32 POC Chloride 103 mmol/L (101-112) 06/21/23 21:35 Chloride 104 mmol/L (98-107) 06/21/23 21:32 Carbon Dioxide 23 mmol/L (21-32) 06/21/23 21:32 POC Total CO2 23 mmol/L (24-31) L 06/21/23 21:35 Anion Gap 8 (3-11) 06/21/23 21:32 POC Anion Gap 17.0 mmol/L (16-25) 06/21/23 21:35 POC BUN 18 mg/dl (7-18) 06/21/23 21:35 BUN 18 mg/dl (6-23) 06/21/23 21:32 Creatinine 1.23 mg/dl (0.6-1.4) 06/21/23 21:32 POC Creatinine 1.3 mg/dl (0.6-1.3) 06/21/23 21:35 Est Cr Clr Drug Dosing 45.5 ml/min 06/21/23 21:32 Est GFR ( Amer) 62.5 ml/min 06/21/23 21:32 Est GFR (Non-Af Amer) 54.0 ml/min 06/21/23 21:32 BUN/Creatinine Ratio 14.6 (10-20) 06/21/23 21:32 Glucose 109 mg/dl (70-99(Fasting)) H 06/21/23 21:32 POC Glucose (other) 109 mg/dl (70-99) H 06/21/23 21:35 Calcium 9.0 mg/dl (8.6-10.3) 06/21/23 21:32 POC Ioniz Calcium Brenda 1.07 mmol/l (1.12-1.32) L 06/21/23 21:35 Magnesium 1.9 mg/dl (1.7-2.4) 06/21/23 21:32 Total Bilirubin 0.9 mg/dl (0.2-1.0) 06/21/23 21:32 AST 21 U/L (13-39) 06/21/23 21:32 ALT 16 U/L (7-52) 06/21/23 21:32 Alkaline Phosphatase 110 U/L (34-104) H 06/21/23 21:32 Troponin I High Sens 8.1 pg/ml (0-20) 06/21/23 21:32 Total Protein 7.4 gm/dl (6.0-8.3) 06/21/23 21:32 Albumin 4.2 gm/dl (3.4-5.0) 06/21/23 21:32 Globulin 3.2 gm/dl (2.5-4.0) 06/21/23 21:32 Albumin/Globulin Ratio 1.3 (0.9-2) 06/21/23 21:32 Blood Type AB Positive 06/21/23 21:32 Antibody Screen NEGATIVE 06/21/23 21:32 Impressions Head CTA 06/21/23 21:[address] OF THE BRAIN; CT ANGIOGRAM OF THE BRAIN; CT ANGIOGRAM OF THE NECK CLINICAL HISTORY: Neurological deficit. Stroke like symptoms. Right-sided weakness. Slurred speech. COMPARISON STUDY: CT angiogram of the head and neck dated 12/30/2017. MRI of the brain dated 12/31/2017. TECHNIQUE: Unenhanced axial CT scan of the brain is performed. Subsequently, following the IV administration of 118 of Optiray 320, CT angiogram of the head and neck was performed from the aortic arch to the vertex. Images are reviewed in the axial, sagittal, and coronal planes. 3-D MIPS images are created and assessed. IV contrast was administered without complication. All measurements were calculated based on NASCET criteria. A dose lowering technique was utilized adhering to the principles of ALARA. CT DOSE: 1380.12 mGy.cm FINDINGS: Brain parenchyma: There is age-related involutional change noting mild subcortical and periventricular microcatheter pathic disease. Right occipital encephalomalacia is consistent with a remote infarct. Chronic lacunar infarcts are noted in the right thalamus and the right cerebellar hemisphere. There is no hemorrhage, mass effect, or evidence of acute territorial ischemia by CT criteria. There is no evidence of enhancing mass lesion on the angiogram phase images. The ventricles, sulci, and cisterns are prominent secondary to involutional change. [place]-white matter differentiation is preserved. No extra- axial fluid collection is seen. Thoracic aorta: There is atherosclerotic calcification of the thoracic aorta. Visualized portions of the thoracic aorta are normal in caliber. The aortic arch demonstrates standard 3-vessel anatomy. Right carotid arterial system: The right common carotid artery is widely patent, as are the right internal and external carotid arteries. Calcified plaque is seen in the carotid bulb. Left carotid arterial system: The left common carotid artery is widely patent, as are the left internal and external carotid arteries. Calcified plaque is noted in the carotid bulb. Vertebral arteries: The vertebral arteries are widely patent bilaterally and codominant in the neck. Subclavian arteries: Widely patent bilaterally. Intracranial vasculature: There is atherosclerotic calcification of the cavernous carotid and vertebral arteries. The internal carotid arteries are patent at the skull base, as are the anterior and middle cerebral arteries bilaterally. The vertebrobasilar system and posterior cerebral arteries are widely patent. The left vertebral artery is dominant. A posterior communicating artery is noted on the left. 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 This is best seen on image #106. Additional foci of focal vessel caliber seen throughout the intracranial circulation. No aneurysm is identified.. Jugular veins: Patent bilaterally. Dural sinuses: Patent. Lung apices: Partially visualized upper lobe lung parenchyma appears clear. Soft tissues: The visualized pharyngeal soft tissues are normal in appearance noting angiographic phase technique. The oropharyngeal airway appears widely patent. The salivary and thyroid glands are normal in appearance. No cervical lymphadenopathy is seen. Skeletal structures: The skeletal structures are osteopenic. The calvarium appears intact. The cervical spine is maintained noting mild spondylosis. Orbits: The bony orbits are intact. Orbital contents are normal as visualized. Sinuses and mastoids: The paranasal sinuses are clear. There is a large right mastoid effusion. Fluid fills the right middle ear. The left mastoid air cells are well pneumatized. IMPRESSION: 1. 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 This represents a significant change from the 12/30/2017 CT angiogram of the brain and likely represents acute stroke. 2. The brain parenchyma is normal in appearance. There is no hemorrhage or mass effect. 3. Otherwise unremarkable CT angiogram of the brain. 4. Unremarkable CT angiogram of the neck. ACT 112: Negative or not required by law. Electronically signed by: Ramu Gonzales M.D. 06/21/2023 9:45 PM Neck CTA 06/21/23 21:[address] OF THE BRAIN; CT ANGIOGRAM OF THE BRAIN; CT ANGIOGRAM OF THE NECK CLINICAL HISTORY: Neurological deficit. Stroke like symptoms. Right-sided weakness. Slurred speech. COMPARISON STUDY: CT angiogram of the head and neck dated 12/30/2017. MRI of the brain dated 12/31/2017. TECHNIQUE: Unenhanced axial CT scan of the brain is performed. Subsequently, following the IV administration of 118 of Optiray 320, CT angiogram of the head and neck was performed from the aortic arch to the vertex. Images are reviewed in the axial, sagittal, and coronal planes. 3-D MIPS images are created and assessed. IV contrast was administered without complication. All measurements were calculated based on NASCET criteria. A dose lowering technique was utilized adhering to the principles of ALARA. CT DOSE: 1380.12 mGy.cm FINDINGS: Brain parenchyma: There is age-related involutional change noting mild subcortical and periventricular microcatheter pathic disease. Right occipital encephalomalacia is consistent with a remote infarct. Chronic lacunar infarcts are noted in the right thalamus and the right cerebellar hemisphere. There is no hemorrhage, mass effect, or evidence of acute territorial ischemia by CT criteria. There is no evidence of enhancing mass lesion on the angiogram phase images. The ventricles, sulci, and cisterns are prominent secondary to involutional change. [place]-white matter differentiation is preserved. No extra- axial fluid collection is seen. Thoracic aorta: There is atherosclerotic calcification of the thoracic aorta. Visualized portions of the thoracic aorta are normal in caliber. The aortic arch demonstrates standard 3-vessel anatomy. Right carotid arterial system: The right common carotid artery is widely patent, as are the right internal and external carotid arteries. Calcified plaque is seen in the carotid bulb. Left carotid arterial system: The left common carotid artery is widely patent, as are the left internal and external carotid arteries. Calcified plaque is noted in the carotid bulb. Vertebral arteries: The vertebral arteries are widely patent bilaterally and codominant in the neck. Subclavian arteries: Widely patent bilaterally. Intracranial vasculature: There is atherosclerotic calcification of the cavernous carotid and vertebral arteries. The internal carotid arteries are patent at the skull base, as are the anterior and middle cerebral arteries bilaterally. The vertebrobasilar system and posterior cerebral arteries are widely patent. The left vertebral artery is dominant. A posterior communicating artery is noted on the left. 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 This is best seen on image #106. Additional foci of focal vessel caliber seen throughout the intracranial circulation. No aneurysm is identified.. Jugular veins: Patent bilaterally. Dural sinuses: Patent. Lung apices: Partially visualized upper lobe lung parenchyma appears clear. Soft tissues: The visualized pharyngeal soft tissues are normal in appearance noting angiographic phase technique. The oropharyngeal airway appears widely patent. The salivary and thyroid glands are normal in appearance. No cervical lymphadenopathy is seen. Skeletal structures: The skeletal structures are osteopenic. The calvarium appears intact. The cervical spine is maintained noting mild spondylosis. Orbits: The bony orbits are intact. Orbital contents are normal as visualized. Sinuses and mastoids: The paranasal sinuses are clear. There is a large right mastoid effusion. Fluid fills the right middle ear. The left mastoid air cells are well pneumatized. IMPRESSION: 1. 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 This represents a significant change from the 12/30/2017 CT angiogram of the brain and likely represents acute stroke. 2. The brain parenchyma is normal in appearance. There is no hemorrhage or mass effect. 3. Otherwise unremarkable CT angiogram of the brain. 4. Unremarkable CT angiogram of the neck. ACT 112: Negative or not required by law. Electronically signed by: Ramu Gonzales M.D. 06/21/2023 9:[address] 06/21/23 22:41 Exam(s): CT HEAD Without Contrast EXAM: CT Head Without Intravenous Contrast CLINICAL HISTORY: Reason for exam: vomiting post tnk. TECHNIQUE: Axial computed tomography images of the head/brain without intravenous contrast. CTDI is 38.1 mGy and DLP is 624.41 mGy-cm. Automated exposure control was utilized for the study. A dose lowering technique was utilized adhering to the principles of ALARA. COMPARISON: No relevant prior studies available. FINDINGS: No acute intracranial hemorrhage. No midline shift or mass effect. The territorial [place]ano-white matter differentiation is maintained throughout. Age-related cerebral volume loss. Periventricular and subcortical white matter hypoattenuation, consistent with chronic microangiopathy. The visualized orbits appear grossly unremarkable. The calvarium is intact. The visualized paranasal sinuses and mastoid air cells are grossly clear. IMPRESSION: No acute intracranial hemorrhage, midline shift, or mass effect. Electronically signed by: Cj Castro MD 06/21/23 23:17 PM Diagnostic Findings Chest x-ray as per my interpretation cardiomegaly, congestion EKG as per my interpretation : Rate 85, A-fib, normal axis, no ischemia
--- OUTSIDE RECORDS SUMMARY | 2023-06-22 00:30 | External Medical Summary | Summary of Care ---
Author Name Unknown Organization [facility] Address [address] [place] [address] Phone [phone] Care Team Providers Care It Teacher Name Role Phone Jose Graham MD Primary Care Provider [phone] Reason for Visit * Reason Comments eRx-Medication Refill Encounter Details Date Type Department Care Team (Late st Contact Info) Description 06/06/2023 Refill Family Practice [facility] [address] [place] [phone] Jose Graham MD [address] [place] [phone] Paroxysmal atrial fibrillation (HCC); Essential hypertension with goal blood pressure less than 140/90; Chronic coronary artery disease; HTN, goal below 140/90; Atrial fibrillation, unspecified type (HCC) Allergies No known active allergiesdocumented as of this encounter (statuses as of 06/07/2023) Medications Medication Sig Dispensed Refills Start Date End Date Status ASPIRIN EC 81 MG PO TBECIndications:C hronic coronary artery disease 1 TABLET DAILY 30 Tab 11 05/24/2011 Active Additional Information Patient not taking.Reported on 05/10/2023 VIAGRA 50 MG PO TABSIndications:E rectile dysfunction One pill by mouth 1-4 hours before intercourse, no more than 1 dose in 24 hours. 10 Tab 5 04/13/2014 Active Dronedarone HCl 400 MG Oral Tablet (Multaq)Indicatio ns:Chronic coronary artery disease,HTN, goal below 140/90,Atrial fibrillation (HCC) Take 1 Tablet by mouth in the morning and 1 Tablet before bedtime. 180 Tablet 3 10/20/2022 Active Dutasteride 0.5 MG Oral Capsule (Avodart) Take 1 Capsule by mouth in the morning. 90 Capsule 2 10/30/2022 Active Celecoxib 200 MG Oral Capsule (CeleBREX) Take 1 Capsule by mouth in the morning. For pain. 90 Capsule 3 10/30/2022 Active Colchicine 0.6 MG Oral Tablet TAKE ONE TABLET BY MOUTH ONCE NEEDED FOR GOUT, MAY REPEAT ONE TIME IN 24 HOURS 30 Tablet 1 05/10/2023 Active Simvastatin 10 MG Oral Tablet (Zocor)Indication s:Dyslipidemia, goal LDL below 100 TAKE 1 TABLET BY MOUTH IN THE EVENING AT BEDTIME 90 Tablet 0 06/06/2023 Active amLODIPine Besylate 2.5 MG Oral Tablet (Norvasc) Take 1 tablet by mouth once daily 90 Tablet 1 06/07/2023 Active Lisinopril 30 MG Oral TabletIndications :Paroxysmal atrial fibrillation (HCC),Essential hypertension with goal blood pressure less than 140/90 Take 1 tablet by mouth once daily 90 Tablet 1 06/07/2023 Active Metoprolol Tartrate 50 MG Oral Tablet (Lopressor)Indica tions:Chronic coronary artery disease,HTN, goal below 140/90,Atrial fibrillation, unspecified type (HCC) Take 1 tablet by mouth twice daily 180 Tablet 1 06/07/2023 Active Metoprolol Tartrate 50 MG Oral Tablet (Lopressor)Indica tions:Chronic coronary artery disease,HTN, goal below 140/90,Atrial fibrillation, unspecified type (HCC) Take 1 tablet by mouth twice daily 180 Tablet 1 12/06/2022 06/07/19 24 Discontinued Lisinopril 30 MG Oral TabletIndications :Paroxysmal atrial fibrillation (HCC),Essential hypertension with goal blood pressure less than 140/90 Take 1 tablet by mouth once daily 90 Tablet 1 12/06/2022 06/07/19 24 Discontinued amLODIPine Besylate 2.5 MG Oral Tablet (Norvasc) Take 1 tablet by mouth once daily 90 Tablet 1 12/06/2022 06/07/19 24 Discontinued documented as of this encounter (statuses as of 06/07/2023) Active Problems Problem Noted Date Diagnosed Date Overweight (BMI 25.0-29.9) 04/06/2022 Sensorineural hearing loss (SNHL) of 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 Study Title: Genomic Markers of In- Stent Restenosis in Drug-Eluting Stents Project # [id number] Worm Picker: Lilliana Mclean MD [phone] GENOMICS CARDIO RESEARCH OTHER*[id number] 06/12/2006 06/19/2016 Overview: Renamed Per Clinical Trials Billing Project. Study Title: Genomic Markers of In- Stent Restenosis in Drug-Eluting Stents Project # [id number] Worm Picker: Lilliana Mclean MD [phone] documented as of this encounter (statuses as of 06/07/2023) Immunizations Name Administration Dates Next Due COVID-19 mRNA, LNP-s, No Pre serve, 2-Dose Series (Dnevnik) 04/25/2021,07/25/2020,06/27/2020 COVID-19, MRNA-LNP, 23-24, P F, 30 MCG/0.3 mL, 12 YRS AND ABOVE, IM ([facility]) 03/11/2023 Covid-19, Mrna, Lnp-s, Pf, B ivalent, 30 Mcg, IM, 12 yrs and above (Pfizer) 02/13/2022 Pneumococcal Conjugate Vacc, 13 Valent (Prevnar) 11/07/2015 Pneumococcal Polysaccharide PPV23 (Pneumovax) 08/09/2009 Season Influenza, Quad, PF, Adjuvanted, 65+ Yrs, IM (FLUAD) 02/29/2020 Seasonal Influenza, PF, 6 M & above, IM , (FluLaval or Fluzone) 02/10/2018 Seasonal Influenza, Quadriva lent Hd (Fluzone Hd) 02/13/2022,03/06/2021 Seasonal Influenza, Quadriva lent, No Preserve, IM 01/28/2017,04/30/2016 Seasonal Influenza, Split, I IV3, With Preserve, Inj 04/13/2014,04/27/2013,05/14/2012 Seasonal Influenza, Trivalen t, Adjuvanted, 65+ yrs 06/01/2019 TDAP (age 10 and older)(Boostrix) 04/27/2013 Varicella Zoster Vaccine (Adult) 04/13/2014 Zoster Vaccine Recombinant (Shingrix) 11/30/2019 documented as of this encounter Social History Tobacco Use Types Packs/Day Years Used Date Smoking Tobacco: Never Smokeless Tobacco: Never Alcohol Use Standard Drinks/Week Comments Yes 0 (1 standard drink = 0.6 oz pure alcohol) drinks one glass of red wine daily PHQ-2 Answer Date Recorded PHQ-2 Score 0 03/17/2018 Hunger Vital Sign Answer Date Recorded Within the past 12 months, y ou worried that your food would run out before you got the money to buy more. Never true 09/01/19 21 Within the past 12 months, t he food you bought just didn't last and you didn't have money to get more. Never true 08/31/2020 Sex and Gender Information Value Date Recorded Sex Assigned at Male 08/18/2018 8:55 AM EDT Gender Identity Male 08/18/2018 8:55 AM EDT Sexual Orientation Straight 08/18/2018 8: 55 AM EDT Job Start Date Occupation Industry Not on file Not on file Not on file documented as of this encounter Miscellaneous Notes * Telephone Encounter - Annie [facility] - 06/07/2023 5:37 AM ESTSigned Prescriptions: Disp Refills amLODIPine Besylate 2.5 MG Oral Tablet (No*90 Tab*1 Sig: Take 1 tablet by mouth once dailyAuthorizing Provider: JOSE GRAHAM User: ANNIE ANDERS Lisinopril 30 MG Oral Tablet 90 Tab*1 Sig: Take 1 tablet by mouth once dailyAuthorizing Provider: JOSE GRAHAM User: ANNIE ANDERS Metoprolol Tartrate 50 MG OralTablet (Lop*180 Ta*1 Sig: Take 1 tablet by mouth twice dailyAuthorizing Provider: JOSE GRAHAM User: ANNIE ANDERS documented in this encounter Plan of Treatment Upcoming Encounters Date Type Department Care Team (Late st Contact Info) Description 06/17/2023 12:30 PM EST Office Visit Orthopaedics [facility] [address] [place] [phone] Cullen Vidal MD [address] [place] [id number] 11/05/2023 10:20 AM EDT Office Visit Family Practice [facility] [address] [place] [address] Jose Graham MD [address] [place] [address] Health Maintenance Due Date Last Done Comments Albumin/Creatinine Ratio 10/29/2017 017, 04/21/2015, 04/22/2012 Zoster Vaccines (3 of 3) 01/25/2020 11/30/2019, 12/06/2013 Depression Screening 11/29/2020 11/30/2019 Influenza Vaccine (FLU shot) (#1) 2023 02/13/2022, 03/06/2021, 02/29/2020, Additional history exists DTaP,Tdap,and Td Vaccines (2 - Td or Tdap) 04/27/2023 04/27/2013 GFR 04/30/2023 10/29/2022, 08/12, 03/06/2021, Additional history exists CKD HGB USE SMARTSET 44870 10/30/202310/29, 10/29/2022, 03/06/2021, Additional history exists CKD PHOS USE SMARTSET 63578 10/30/202310/11, 03/06/2021, 11/23/2019, Additional history exists Pneumococcal Vaccine: 65+ Years Completed 11/07/2015, 08/09/2009 COVID-19 Vaccine Completed 03/11/2023, 08/2021, 04/25/2021, Additional history exists GARDASIL-HPV IMMUNIZATION SERIES Aged Out No longer eligible based on patient's age to complete this topic Hepatitis B Aged Out No longer eligi ble based on patient's age to complete this topic MENINGOCOCCAL (MENACTRA/MENVEO) Aged Out No longer eligible based on patient's age to complete this topic documented as of this encounter Medical Devices Not on filedocumented as of this encounter Visit Diagnoses Diagnosis Paroxysmal atrial fibrillation (HCC) Atrial fibrillation Essential hypertension with goal blood pressure less than 140/90 Chronic coronary artery disease Coronary atherosclerosis of unspecified type of vessel, stebbins or graft HTN, goal below 140/90 Unspecified essential hypertension Atrial fibrillation, unspecified type (HCC) documented in this encounter Care Teams It Teacher Relationship Specialty Start Date End Date Jose Graham MD [address] [place] [id number] PCP - General Family Medicine 08/27/20 documented as of this encounter
--- OUTSIDE RECORDS SUMMARY | 2023-06-22 00:30 | External Medical Summary | Summary of Care ---
Author Name Unknown Organization [facility] Address [address] [place] [address] Phone [phone] Care Team Providers Care Parquet Floor Layer'S Helper Name Role Phone Parker Abraham MD Primary Care Provider [phone] Reason for Referral * Evaluate & Treat - Unlimited Visits (Within 30 days (routine)) - Pending Review Specialty Diagnoses / Procedures Referred By Garfield scanlon Referred To Contact Orthopaedic Surgery / Orthopedics Diagnoses Dupuytren's contracture of both hands Parker Abraham MD [address] [place] [address] Referral ID Status Reason Start Date Expiration Date Visits Requested Visits Authorized [id number] Pending Review Specialty Services Required 3 [phone] Question Answer Referral Priority Within 30 days (routine) Where should this appointment be scheduled? [facility] What body part is the patient being seen for? Hand What condition is the patient being seen for? Sprain/Strain/Tear/Other Reason for Visit * Reason Comments Follow Up Pt here for a 6m f/u . Pt states that he has been having issues with his hands since having covid last year. Pt states he believe that he has a right ear infection. States that ear has been leaking and is messing with his hearing aid Encounter Details Date Type Department Care Team (Late st Contact Info) Description 05/10/2023 11:00 AM EST Office Visit Family [facility] [address] [facility] [place] [phone] Parker Abraham MD [address] [place] [address] Paroxysmal atrial fibrillation (HCC)*; Risk and functional assessment; HTN, goal below 130/80; Coronary artery disease involving aniak coronary artery of aniak heart without angina pectoris; Stage 3a chronic kidney disease (HCC); BPH with obstruction/lower urinary tract symptoms; Gouty arthropathy; Overweight (BMI 25.0-29.9); Dyslipidemia; Dupuytren's contracture of both hands Allergies No known active allergiesdocumented as of this encounter (statuses as of 05/10/2023) Medications Medication Sig Dispensed Refills Start Date End Date Status ASPIRIN EC 81 MG PO TBECIndications:Ch arron coronary artery disease 1 TABLET DAILY 30 Tab 11 05/24/2011 Active Additional Information Patient not taking.Reported on 05/10/2023 VIAGRA 50 MG PO TABSIndications:Er ectile dysfunction One pill by mouth 1-4 hours before intercourse, no more than 1 dose in 24 hours. 10 Tab 5 04/13/2014 Active Dronedarone HCl 400 MG Oral Tablet (Multaq)Indication s:Chronic coronary artery disease,HTN, goal below 140/90,Atrial fibrillation [...] For pain. 90 Capsule 3 10/30/2022 Active Metoprolol Tartrate 50 MG Oral Tablet (Lopressor)Indicat ions:Chronic coronary artery disease,HTN, goal below 140/90,Atrial fibrillation, unspecified type (HCC) Take 1 tablet by mouth twice daily 180 Tablet 1 12/06/2022 Active Lisinopril 30 MG Oral TabletIndications: Paroxysmal atrial fibrillation (HCC),Essential hypertension with goal blood pressure less than 140/90 Take 1 tablet by mouth once daily 90 Tablet 1 12/06/2022 Active amLODIPine Besylate 2.5 MG Oral Tablet (Norvasc) Take 1 tablet by mouth once daily 90 Tablet 1 12/06/2022 Active Simvastatin 10 MG Oral Tablet (Zocor)Indications :Dyslipidemia, goal LDL below 100 TAKE 1 TABLET BY MOUTH IN THE EVENING AT BEDTIME 90 Tablet 0 02/25/2023 Active Colchicine 0.6 MG Oral Tablet TAKE ONE TABLET BY MOUTH ONCE NEEDED FOR GOUT, MAY REPEAT ONE TIME IN 24 HOURS 30 Tablet 1 05/10/2023 Active Ciprofloxacin-dexA METHasone 0.3-0.1 % Otic Suspension (Cipro-Dex) Administer 3 Drops to the right ear in the morning and 3 Drops before bedtime. Do all this for 7 days. 7.5 mL 0 05/10/2023 4 Active Ofloxacin 0.3 % Ophthalmic Solution (Ocuflox) 4 drops to the right ear twice daily for 5 days 5 mL 3 09/04/2021 3 Discontinue d(Discharge d) Colchicine 0.6 MG Oral Tablet TAKE ONE TABLET BY MOUTH ONCE NEEDED FOR GOUT, MAY REPEAT ONE TIME IN 24 HOURS 30 Tablet 1 04/09/2022 3 Discontinue d(Refill) predniSONE 20 MG Oral Tablet (Deltasone) Take 3 tablets by mouth once daily 15 Tablet 0 09/21/2022 3 Discontinue d(Discharge d) documented as of this encounter (statuses as of 05/10/2023) Active Problems Problem Noted Date Diagnosed Date Overweight (BMI 25.0-29.9) 04/06/2022 Sensorineural hearing loss (SNHL) of both ears 1 BPH with obstruction/lower urinary tract symptom s 08/27/2020 Gouty arthropathy 11/07/2015 Stage 3a chronic kidney disease 10/01/2011 Overview: Per CKD protocol #1 Paroxysmal atrial fibrillation 08/03/2011 Organic erectile dysfunction 05/02/2009 Coronary artery disease invo lving aniak coronary artery of aniak heart without angina pectoris HTN, goal below 130/80 Dyslipidemia Overview: Per Lipid Taxonomy. documented as of this encounter (statuses as of 05/10/2023) Resolved Problems Problem Noted Date Diagnosed Date Resolved Date Hypertensive kidney disease with chronic kidney disease stage III 08/05/2018 08/27/2020 Gout of ankle 11/07/2015 11/07/2015 Dupuytren's contracture of both hands 10/19/2014 08/27/2020 Hematuria 05/24/2011 08/18/2018 Elevated prostate specific antigen (PSA) 02/08/2009 08/27/2020 Aspirin contraindicated 02/08/200907/13 Atrial fibrillation 03/26/2008 08/10/19 10 Anticoagulation management encounter 03/26/2008 08/09/2009 intermediate current use of ant icoagulant therapy 03/26/2008 08/09/2009 Overview: ICD-10 update of inactive term Examination of participant in clinical trial 7 08/26/2009 Overview: Renamed Per Clinical Trials Billing Project. Study Title: Genomic Markers of In- Stent Restenosis in Drug-Eluting Stents Project # [id number] Living Advisor: Lilliana Mclean MD [phone] GENOMICS CARDIO RESEARCH OTHER*[id number] 06/12/2006 06/19/2016 Overview: Renamed Per Clinical Trials Billing Project. Study Title: Genomic Markers of In- Stent Restenosis in Drug-Eluting Stents Project # [id number] Living Advisor: Lilliana Mclean MD [phone] documented as of this encounter (statuses as of 05/10/2023) Immunizations Name Administration Dates Next Due COVID-19 mRNA, LNP-s, No Pre serve, 2-Dose Series ([facility]) 04/25/2021,07/25/2020,06/27/2020 COVID-19, MRNA-LNP, 23-24, P F, 30 MCG/0.3 mL, 12 YRS AND ABOVE, IM ([facility]) 03/11/2023 Covid-19, Mrna, Lnp-s, Pf, B ivalent, 30 Mcg, IM, 12 yrs and above ([facility]) 02/13/2022 Pneumococcal Conjugate Vacc, 13 Valent (Prevnar) [...] Date Smoking Tobacco: Never Smokeless Tobacco: Never Tobacco Cessation:Counseling Given: Not Answered Alcohol Use Standard Drinks/Week Comments Yes 0 [...] on file documented as of this encounter Last Filed Vital Signs Vital Sign Reading Time Taken Comments Blood Pressure 146/70 05/10/2023 10:49 AM EST Pulse 59 05/10/2023 10:49 AM EST Temperature 36.4 C (97.5 F) 05/10/2023 10:[address] Respiratory Rate 16 05/10/2023 10:49 AM EST Oxygen Saturation 95% 05/10/2023 10:49 AM EST Inhaled Oxygen Concentration - - Weight 85.1 kg (187 lb 9.6 oz) 05/10/2023 10:49 AM EST Height 175.9 cm (5' 9.25") 05/10/2023 10:[address] Body Mass Index 27.5 05/10/2023 10:49 AM EST documented in this encounter Patient Instructions * Patient Instructions* Yasmeen Marrero LPN - 05/10/2023 10:51 AM EST Patient Instructions - Fall Prevention (This education is for all patients over 65 regardless of symptoms) Remember to take your current medications as prescribed. In order to prevent falls, you are encouraged to: Exercise Utilize assistive/adaptive devices Avoid multifocal lenses when walking Avoid hazards in home Maintain a regular toileting schedule Any questions please contact our office. Preventing Falls in the Home (This education is for all patients over 65 regardless of symptoms) As you get older, falls are more likely. Thats because your reaction time slows. Your muscles and joints may also get stiffer, making them less flexible. Illness, medications, and vision changes can also affect your balance. A fall could leave you unable to live on your own. To make your home safer, follow these tips: Floors Put nonskid pads under area rugs Remove throw rugs Replace worn floor coverings Tack carpets firmly to each step on carpeted stairs. Put nonskid strips on the edges of uncarpeted stairs Keep floors and stairs free of clutter and cords Arrange furniture so there are clear pathways Clean up any spills right away Bathrooms Install grab bars in the tub or shower Apply nonskid strips or put a nonskid rubber mat in the tub or shower Sit on a bath chair to bathe Use bathmats with nonskid backing Lighting Keep a flashlight in each room Put a nightlight along the pathway between the bedroom and the bathroom [employer] Patient Education Copyright 2009 - 2010 [employer] except where otherwise noted Preventing Falls: Exercises to Improve Balance, Flexibility, Strength, and Staying Power (This education is for all patients over 65 regardless of symptoms) Certain types of exercises may help make you less likely to fall. Try the ones below. Or do other exercises that your healthcare provider suggests. Depending on your health, you may need to start slowly. Dont let that stop you. Even small amounts of exercise can help you. Be sure to talk to yourhealthcare provider before starting any exercise program. Improve Balance Many types of exercise can help improve balance. Clinton chi and yoga are good examples. Heres another one to try. You can do it anytime and almost anywhere. Stand next to a counter or solid support. Push yourself up onto your tiptoes. Hold for 5 seconds. If you start to lose your balance, hold on to the counter. Rest and repeat 5 times. Work up to holding for 20 to 30 seconds, if you can. Increase Flexibility Being more flexible makes it easier for you to move around safely. Try exercises like the seated hamstring stretch. Sit in a chair and put one foot on a stool. Straighten your leg and reach with both hands down either side of your leg. Reach as far down your leg as you can. Hold for about 20 seconds. Go back to the starting position. Then repeat 5 times. Switch legs. Build Strength Resistance exercises help build strength. You can do them without equipment. Or you can use weights, elastic bands, or special machines. One such exercise is called the biceps curl. You can hold a 1 pound weight or even a can of soup. Do this exercise at least 3 times a week. Strive for everyday. Sit up straight in a chair. Keep your elbow close to your body and your wrist straight. Bend your arm, moving your hand up to your shoulder. Then slowly lower your arm. Repeat 5 times. Switch to the other arm. Build Your Staying Power Aerobic exercises make your heart and lungs stronger so you can keep moving longer. Walking and swimming are two of the best types of exercises you can do. Using a stationary bike is great, too. Find an aerobic exercise that you enjoy. Start slowly and build up. Even 5 minutes is helpful. Aimfor a goal of 30 minutes, at least 3 times a week. You dont have to do 30 minutes in one session. Break it up and walk a little throughout the day. More Helpful Tips Start easy. Slowly work up to doing more. Talk with your healthcare provider about the best exercises for you. Call senior centers or health clubs about exercise programs. If needed, have a family member watch you walk every so often to check your stability. Exercise with a friend. Choose an activity you both enjoy. Try exercises that you can do anytime, anywhere. Here are two examples. Have someone with you when you first try these: Practice walking by placing one foot right in front of the other. Stand up and sit down 10 times. Repeat this throughout the day. [employer] Patient Education Copyright 2008 [employer] except where otherwise noted. Preventing Falls: Moving Safely Using a Cane or Walker (This education is for all patients over 65 regardless of symptoms) Keep the cane away from your feet so you dont trip. A walking aid, such as a cane or walker, can help you stay more independent and avoid falls. Remember to keep your walking aid within easy reach when youre in a chair or in bed. And learn how to use it safely so you dont injure yourself. Using a Cane If you have a stronger side, hold the cane on that side. Get your balance. Move the cane and your weaker leg forward. Support your weight on both the cane and your weaker side. Step with your stronger leg. Start again from step 1. If youre using a folding walker, be sure you know how to lock it open. Check that its locked open before each use. Using a Walker Roll the walker (or lift it, if youre using one without wheels) forward about 12 inches. Step forward with your weaker leg first. Use the walker to help keep your balance. Bring your other foot forward to the center of the walker. Start again from step 1. Helpful Tips Check with your healthcare provider about the right walking aid to use. Ask about a walker with a seat attached. Check the tips of your cane or walker to make sure they have nonskid covers. Move slowly from room to room. Dont love. Sit down to get dressed. Use a marcus pack or backpack to keep your hands free. Get help for jobs that mean climbing, even on a stepstool. [employer] Patient Education Copyright 2008 - 2010 [employer] except where otherwise noted. Treating Urinary Incontinence in Men (This education is for all patients over 65 regardless of symptoms) You can't always control the release of urine. You may leak urine. Or you may not be able to hold your urine until you can get to a bathroom. This is called urinary incontinence. The problem can be managed. Talk to your doctor about your treatment options. Taking Medications Prescription medications may help you. They may: Help the sphincter to work better. (This is the muscle that closes to keep urine from leaking out of the bladder.) Help stop the bladder from ashley too often to push urine out. Help the bladder muscles contract with more force. Help relax the sphincter muscle and allow urine to flow more freely. Making Changes to Your Routine Certain changes in your daily routine may help. These include: Avoiding caffeine and alcohol. Using timed voiding. This is following a schedule for drinking fluids and urinating. Doing Kegel exercises daily. These exercises involve tightening the muscles in your sphincter and around your bladder to help strengthen them. Your doctor can explain how to do them. Using a Catheter A catheter is a narrow tube that is inserted through the urethra into the bladder. It drains urine.A condom catheter covers the penis. It channels urine into a collection bag. It is worn most of thetime. Intermittent catheterization means inserting a catheter to drain the bladder, then removing it. This is done on a regular schedule. Having Surgery If other options don't work, surgery may be recommended. If surgery is an option, your healthcare provider can discuss it with you and explain its risks and benefits. Healing After Prostate Surgery Surgery on the prostate gland can cause incontinence. Most often, the incontinence is only for a short time. It clears up when healing is complete. Very rarely, prostate surgery can result in permanent incontinence. documented in this encounter Progress Notes * Parker Abraham MD - 05/10/2023 1:59 PM EST SUBJECTIVE: Austyn Ricardo is a 82 year old male. Chief Complaint Patient presents with Follow Up Pt here for a 6m f/u. Pt states that he has been having issues with his hands since having covid last year. Pt states he believe that he has a right ear infection. States that ear has been leaking and is messing with his hearing aid HPI: Routine visit. Feels great with the exception of his hand swelling and contractures. Interested in seeing hand ortho. He does have recurrent chronic right sided otitis externa. Drops have worked in the past. Medications reviewed. Health maintenance reviewed. Patient Active Problem List Diagnosis Code Coronary artery disease involving aniak coronary artery of aniak heart without angina pectoris I25.10 HTN, goal below 130/80 I10 Dyslipidemia E78.5 Organic erectile dysfunction N52.9 Paroxysmal atrial fibrillation (HCC) I48.0 Stage 3a chronic kidney disease (HCC) N18.31 Gouty arthropathy M10.9 BPH with obstruction/lower urinary tract symptoms N40.1, N13.8 Sensorineural hearing loss (SNHL) of both ears H90.3 Overweight (BMI 25.0-29.9) E66.3 Current Outpatient Medications Medication Sig Dispense Refill VIAGRA 50 MG PO TABS One pill by mouth 1-4 hours before intercourse, no more than 1 dose in 24 hours. 10 Tab 5 Dronedarone HCl 400 MG Oral Tablet (Multaq) Take 1 Tablet by mouth in the morning and 1 Tablet before bedtime. 180 Tablet 3 Dutasteride 0.5 MG Oral Capsule (Avodart) Take 1 Capsule by mouth in the morning. 90 Capsule 2 Celecoxib 200 MG Oral Capsule (CeleBREX) Take 1 Capsule by mouth in the morning. For pain. 90 Capsule 3 Metoprolol Tartrate 50 MG Oral Tablet (Lopressor) Take 1 tablet by mouth twice daily 180 Tablet 1 Lisinopril 30 MG Oral Tablet Take 1 tablet by mouth once daily 90 Tablet 1 amLODIPine Besylate 2.5 MG Oral Tablet (Norvasc) Take 1 tablet by mouth once daily 90 Tablet 1 Simvastatin 10 MG Oral Tablet (Zocor) TAKE 1 TABLET BY MOUTH IN THE EVENING AT BEDTIME 90 Tablet 0 Colchicine 0.6 MG Oral Tablet TAKE ONE TABLET BY MOUTH ONCE NEEDED FOR GOUT, MAY REPEAT ONE TIMEIN 24 HOURS 30 Tablet 1 Ciprofloxacin-dexAMETHasone 0.3-0.1 % Otic Suspension (Cipro-Dex) Administer 3 Drops to the right ear in the morning and 3 Drops before bedtime. Do all this for 7 days. 7.5 mL ML ASPIRIN EC 81 MG PO TBEC 1 TABLET DAILY (Patient not taking: Reported on 05/10/2023) 30 Tab 11 No current facility-administered medications for this visit. Allergy: Review of patient's allergies indicates: No Known Allergies OBJECTIVE: BP 146/70 (BP Site: Left Arm, BP Position: Sitting, BP Cuff Size: Regular) | Pulse 59 | Temp 36.4 C (97.5 F) (Tympanic) | Resp 16 | Ht 1.759 m (5' 9.25") | Wt 85.1 kg (187 lb 9.6 oz) | SpO2 95% |BMI 27.50 kg/m | BSA 2.04 m General: alert, healthy, and no distress Ears: right otitis externa noted (chronic) Neck: supple, no adenopathy, no bruits, thyroid normal size, non-tender, without nodularity Lungs: chest symmetric with normal AP diameter, no chest deformities noted, no chest wall tenderness, lungs clear to auscultation Heart: regular rate & rhythm, no murmur, and no gallops Extremities: bilateral palmar contractions noted Neuro Exam: alert & oriented x 3 with fluent speech, no focal motor/sensory deficits, gait normal, reflexes normal and symmetric Skin: skin color, texture, turgor are normal, no rashes or significant lesions ASSESSMENT AND PLAN: (I48.0) Paroxysmal atrial fibrillation (HCC) (primary encounter diagnosis) Plan: continue current mgmt (Z13.9) Risk and functional assessment Plan: no recent falls (I10) HTN, goal below 130/80 Plan: BASIC METABOLIC PANEL -stable (I25.10) Coronary artery disease involving aniak coronary artery of aniak heart without angina pectoris Plan: continue rx (N18.31) Stage 3a chronic kidney disease (HCC) Plan: avoid NSAIDs; stable gfr (N40.1, N13.8) BPH with obstruction/lower urinary tract symptoms Plan: stable (M10.9) Gouty arthropathy Plan: quiescent (E66.3) Overweight (BMI 25.0-29.9) Plan: healthy weight (E78.5) Dyslipidemia Plan: continue rx (M72.0) Dupuytren's contracture of both hands Plan: ORTHOPAEDICS REFERRAL OP Follow up in 6 month(s). No other complaints were offered at this time. Parker Abraham MD documented in this encounter Plan of Treatment Upcoming Encounters Date Type Department Care Team (Late st Contact Info) Description 06/17/2023 12:30 PM EST Office Visit Orthopaedics [facility] [address] [facility] [place] [address] Cullen Vidal MD [address] [place] [address] 11/05/2023 10:20 AM EDT Office Visit Family Practice [facility] [address] [place] [address] Parker Abraham MD [address] [place] [address] Scheduled Orders Name Type Priority Associated Diagnoses Orde r Schedule BASIC METABOLIC PANEL Lab Routine HTN, goal below 130/80 Expected: 05/10/2023 (Approximate), Expires: 05/09/2024 Scheduled Referrals Name Type Priority Associated Diagnoses Orde r Schedule ORTHOPAEDICS REFERRAL OP Referral Within 30 days (routine) Dupuytren's contracture of both hands Ordered: 05/10/2023 Health Maintenance Due Date Last Done Comments Albumin/Creatinine Ratio 10/29/2017 017, 04/21/2015, 04/22/2012 Zoster Vaccines (3 of 3) 01/25/2020 11/30/2019, 06/2013 Depression Screening 11/29/2020 11/30/2019 Influenza Vaccine (FLU shot) (#1) 2023 02/13/2022, 03/06/2021, 02/29/2020, Additional history exists DTaP,Tdap,and Td Vaccines (2 - Td or Tdap) 04/27/2023 04/27/2013 GFR 04/30/2023 10/29/2022, 04/2 09/2021, 03/06/2021, Additional history exists CKD HGB USE SMARTSET 18617 10/30/202310/29, 10/29/2022, 03/06/2021, Additional history exists CKD PHOS USE SMARTSET 15852 10/30/202310/11, 03/06/2021, 11/23/2019, Additional history exists Pneumococcal [...] encounter Visit Diagnoses Diagnosis Paroxysmal atrial fibrillation (HCC)- Primary Atrial fibrillation Risk and functional assessment Screening for unspecified condition HTN, goal below 130/80 Unspecified essential hypertension Coronary artery disease involving aniak coronary artery of aniak heart without angina pectoris Stage 3a chronic kidney disease (HCC) BPH with obstruction/lower urinary tract symptoms Hypertrophy of prostate with urinary obstruction and other lower urinary tract symptoms (LUTS) Gouty arthropathy Gouty arthropathy, unspecified Overweight (BMI 25.0-29.9) Overweight Dyslipidemia Other and unspecified hyperlipidemia Dupuytren's contracture of both hands Contracture of palmar fascia documented in this encounter Care Teams Parquet Floor Layer'S Helper Relationship Specialty Start Date End Date Parker Abraham MD [address] [facility] [place] [address] PCP - General Family Medicine 08/27/20 documented as of this encounter
--- OUTSIDE RECORDS SUMMARY | 2023-06-22 00:30 | External Medical Summary | Summary of Care ---
Author Name Unknown Organization [facility] Address [address] [address] Phone [phone] Care Team Providers Care Residential Builder Name Role Phone Parker Abraham MD Primary Care Provider [phone] Encounter Details Date Type Department Care Team (Late st Contact Info) Description 06/08/2023 Orders Only PATIENT PORTAL DO NOT DELETE THIS DEPT USED BY THERESA NAVARRO [id number] Allergies No known active allergiesdocumented as of this encounter (statuses as of 06/08/2023) Medications Medication Sig Dispensed Refills Start Date End Date Status ASPIRIN EC 81 MG PO TBECIndications:Chr onic coronary artery disease 1 TABLET DAILY 30 Tab 11 05/24/2011 Active Additional Information Patient not taking.Reported on 05/10/2023 VIAGRA 50 MG PO TABSIndications:Ere ctile dysfunction One pill by mouth 1-4 hours before intercourse, no more than 1 dose in 24 hours. 10 Tab 5 04/13/2014 Active Dronedarone HCl 400 MG Oral Tablet (Multaq)Indications :Chronic coronary artery disease,HTN, goal below 140/90,Atrial fibrillation [...] 05/10/2023 Active Simvastatin 10 MG Oral Tablet (Zocor)Indications: Dyslipidemia, goal LDL below 100 TAKE 1 TABLET BY MOUTH IN THE EVENING AT BEDTIME 90 Tablet 0 06/06/2023 Active amLODIPine Besylate 2.5 MG Oral Tablet (Norvasc) Take 1 tablet by mouth once daily 90 Tablet 1 06/07/2023 Active Lisinopril 30 MG Oral TabletIndications:P aroxysmal atrial fibrillation (HCC),Essential hypertension with goal blood pressure less than 140/90 Take 1 tablet by mouth once daily 90 Tablet 1 06/07/2023 Active Metoprolol Tartrate 50 MG Oral Tablet (Lopressor)Indicati ons:Chronic coronary artery disease,HTN, goal below 140/90,Atrial fibrillation, unspecified type (HCC) Take 1 tablet by mouth twice daily 180 Tablet 1 06/07/2023 Active documented as of this encounter (statuses as of 06/08/2023) Active Problems Problem Noted Date Diagnosed Date Overweight (BMI 25.0-29.9) 04/06/2022 Sensorineural hearing loss (SNHL) of 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 documented as of this encounter (statuses as of 06/08/2023) Resolved Problems Problem Noted Date Diagnosed Date Resolved Date Hypertensive kidney disease with chronic kidney disease stage III 08/05/2018 08/27/2020 Gout of ankle 11/07/2015 11/07/2015 Dupuytren's contracture of both hands 10/19/2014 08/27/2020 Hematuria 05/24/2011 08/18/2018 Elevated prostate specific antigen (PSA) 02/08/2009 08/27/2020 Aspirin contraindicated 02/08/200907/13 Atrial fibrillation 03/26/2008 08/10/19 10 Anticoagulation management encounter 03/26/2008 08/09/2009 USP current use of ant icoagulant therapy 03/26/2008 08/09/2009 Overview: ICD-10 update of inactive term Examination of participant in clinical trial 7 08/26/2009 Overview: Renamed Per Clinical Trials Billing Project. Study Title: Genomic Markers of In- Stent Restenosis in Drug-Eluting Stents Project # [id number] Clerk: Lilliana Mclean MD [phone] GENOMICS CARDIO RESEARCH OTHER*[id number] 06/12/2006 06/19/2016 Overview: Renamed Per Clinical Trials Billing Project. Study Title: Genomic Markers of In- Stent Restenosis in Drug-Eluting Stents Project # [id number] Clerk: Lilliana Mclean MD [phone] documented as of this encounter (statuses as of 06/08/2023) Immunizations Name Administration Dates Next Due COVID-19 mRNA, LNP-s, No Pre serve, 2-Dose Series ([employer]) 04/25/2021,07/25/2020,06/27/2020 COVID-19, MRNA-LNP, 23-24, P F, 30 MCG/0.3 mL, 12 YRS AND ABOVE, IM [facility] 03/11/2023 Covid-19, Mrna, Lnp-s, Pf, B ivalent, 30 Mcg, IM, 12 yrs and above ([employer]) 02/13/2022 Pneumococcal Conjugate Vacc, 13 Valent (Prevnar) [...] on file documented as of this encounter Plan of Treatment Upcoming Encounters Date Type Department Care Team (Late st Contact Info) Description 08/16/2023 1:00 PM EDT Office Visit Orthopaedics [facility] [address] [address] Cullen Vidal MD [address] [id number] 11/05/2023 10:20 AM EDT Office Visit Family Practice [facility] [address] [address] Parker Abraham MD [address] [address] Health Maintenance Due Date Last Done Comments Albumin/Creatinine Ratio 10/29/2017 017, 04/21/2015, 04/22/2012 Zoster Vaccines (3 of 3) 01/25/2020 11/30/2019, 12/06/2013 Depression Screening 11/29/2020 11/30/2019 Influenza Vaccine (FLU shot) (#1) 2023 02/13/2022, 03/06/2021, 02/29/2020, Additional history exists DTaP,Tdap,and Td Vaccines (2 - Td or Tdap) 04/27/2023 04/27/2013 GFR 04/30/2023 10/29/2022, 08/12, 03/06/2021, Additional history exists CKD HGB USE SMARTSET 59106 10/30/202310/29, 10/29/2022, 03/06/2021, Additional history exists CKD PHOS USE SMARTSET 17195 10/30/202310/11, 03/06/2021, 11/23/2019, Additional history exists Pneumococcal [...] Not on filedocumented as of this encounter Care Teams Residential Builder Relationship Specialty Start Date End Date Parker Abraham MD [address] [address] PCP - General Family Medicine 08/27/20 documented as of this encounter
--- OUTSIDE RECORDS SUMMARY | 2023-06-22 00:30 | External Medical Summary | Summary of Care ---
Author Name Unknown Organization [facility] Address [address] [place] [address] Phone [phone] Care Team Providers Care New Grad Rn Name Role Phone Parker Abraham MD Primary Care Provider [phone] Reason for Visit * Reason Onset Date Comments Health Maintenance 05/02/2023 Encounter Details Date Type Department Care Team (Late st Contact Info) Description 05/02/2023 Telephone Family Practice [facility] [address] [place] [id number] Parker Abraham MD [address] [place] [address] Health Maintenance Allergies No known active allergiesdocumented as of this encounter (statuses as of 05/02/2023) Medications Medication Sig Dispensed Refills Start Date End Date Status ASPIRIN EC 81 MG PO TBECIndications:Chron ic coronary artery disease 1 TABLET DAILY 30 Tab 11 05/24/2011 Active VIAGRA 50 MG PO TABSIndications:Erect ile dysfunction One pill by mouth 1-4 hours before intercourse, no more than 1 dose in 24 hours. 10 Tab 5 04/13/2014 Active Ofloxacin 0.3 % Ophthalmic Solution (Ocuflox) 4 drops to the right ear twice daily for 5 days 5 mL 3 09/04/2021 Active Colchicine 0.6 MG Oral Tablet TAKE ONE TABLET BY MOUTH ONCE NEEDED FOR GOUT, MAY REPEAT ONE TIME IN 24 HOURS 30 Tablet 1 04/09/2022 Active predniSONE 20 MG Oral Tablet (Deltasone) Take 3 tablets by mouth once daily 15 Tablet 0 09/21/2022 Active Dronedarone HCl 400 MG Oral Tablet (Multaq)Indications:C hronic coronary artery disease,HTN, goal below 140/90,Atrial fibrillation [...] Active Metoprolol Tartrate 50 MG Oral Tablet (Lopressor)Indication s:Chronic coronary artery disease,HTN, goal below 140/90,Atrial fibrillation, unspecified type (HCC) Take 1 tablet by mouth twice daily 180 Tablet 1 12/06/2022 Active Lisinopril 30 MG Oral TabletIndications:Par oxysmal atrial fibrillation (HCC),Essential hypertension with goal blood pressure less than 140/90 Take 1 tablet by mouth once daily 90 Tablet 1 12/06/2022 Active amLODIPine Besylate 2.5 MG Oral Tablet (Norvasc) Take 1 tablet by mouth once daily 90 Tablet 1 12/06/2022 Active Simvastatin 10 MG Oral Tablet (Zocor)Indications:Dy slipidemia, goal LDL below 100 TAKE 1 TABLET BY MOUTH IN THE EVENING AT BEDTIME 90 Tablet 0 02/25/2023 Active documented as of this encounter (statuses as of 05/02/2023) Active Problems Problem Noted Date Diagnosed Date Overweight (BMI 25.0-29.9) 04/06/2022 Sensorineural hearing loss (SNHL) of 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 documented as of this encounter (statuses as of 05/02/2023) Resolved Problems Problem Noted Date Diagnosed Date Resolved Date Hypertensive kidney disease with chronic kidney disease stage III 08/05/2018 08/27/2020 Gout of ankle 11/07/2015 11/07/2015 Dupuytren's contracture of both hands 10/19/2014 08/27/2020 Hematuria 05/24/2011 08/18/2018 Elevated prostate specific antigen (PSA) 02/08/2009 08/27/2020 Aspirin contraindicated 02/08/200907/13 Atrial fibrillation 03/26/2008 08/10/19 10 Anticoagulation management encounter 03/26/2008 08/09/2009 [facility] current use of ant icoagulant therapy 03/26/2008 08/09/2009 Overview: ICD-10 update of inactive term Examination of participant in clinical trial 7 08/26/2009 Overview: Renamed Per Clinical Trials Billing Project. Study Title: Genomic Markers of In- Stent Restenosis in Drug-Eluting Stents Project # [id number] Lumber Inspector: Lilliana Mclean MD [phone] GENOMICS CARDIO RESEARCH OTHER*[id number] 06/12/2006 06/19/2016 Overview: Renamed Per Clinical Trials Billing Project. Study Title: Genomic Markers of In- Stent Restenosis in Drug-Eluting Stents Project # [id number] Lumber Inspector: Lilliana Mclean MD [phone] documented as of this encounter (statuses as of 05/02/2023) Immunizations Name Administration Dates Next Due COVID-19 mRNA, LNP-s, No Pre serve, 2-Dose Series ([employer]) 04/25/2021,07/25/2020,06/27/2020 COVID-19, MRNA-LNP, 23-24, P F, 30 MCG/0.3 mL, 12 YRS AND ABOVE, IM ([facility] 03/11/2023 Covid-19, Mrna, Lnp-s, Pf, B ivalent, 30 Mcg, IM, 12 yrs and above ([employer]) 02/13/2022 Pneumococcal Conjugate Vacc, 13 Valent (Prevnar) [...] encounter Miscellaneous Notes * Telephone Encounter - Amanda Porter MARIBEL - 05/02/2023 8:36 AM EST Care Gaps Comprehensive Care Outreach Last Office/Telemedicine Visit: 10/30/2022 (in office), Visit date not found (telemedicine) Next Office Visit: 05/03/2023 Hemoglobin AIC Results: Lab Results Component Value Date/Time HEMOGLOBIN A1C - JOCELINER 5.9 06/11/2006 11:50 PM Reviewed Health Maintenance below: Health Maintenance Topic Date Due Albumin/Creatinine Ratio 10/29/2017 Zoster Vaccines (3 of 3) 01/25/2020 Depression Screening 11/29/2020 Influenza Vaccine (FLU shot) (1) 01/11/2023 DTaP,Tdap,and Td Vaccines (2 - Td or Tdap) 04/27/2023 GFR 04/30/2023 CKD HGB USE SMARTSET 30563 10/30/2023 CKD PHOS USE SMARTSET 80254 10/30/2023 Labs already ordered appt tomorrow Care Gap Outreach Action Taken: Outreach not indicated documented in this encounter Plan of Treatment Upcoming Encounters Date Type Department Care Team (Late st Contact Info) Description 05/03/2023 8:00 AM EST Office Visit Family [facility] [address] [facility] [place] [address] Parker Abraham MD [address] [facility] [place] [address] Health Maintenance Due Date Last Done Comments Albumin/Creatinine Ratio 10/29/2017 017, 04/21/2015, 04/22/2012 Zoster Vaccines (3 of 3) 01/25/2020 11/30/2019, 06/2013 Depression Screening 11/29/2020 11/30/2019 Influenza Vaccine (FLU shot) (#1) 2023 02/13/2022, 03/06/2021, 02/29/2020, Additional history exists DTaP,Tdap,and Td Vaccines (2 - Td or Tdap) 04/27/2023 04/27/2013 GFR 04/30/2023 10/29/2022, 04/09/2021, 03/06/2021, Additional history exists CKD HGB USE SMARTSET 09992 10/30/202310/29, 10/29/2022, 03/06/2021, Additional history exists CKD PHOS USE SMARTSET 94722 10/30/202310/11, 03/06/2021, 11/23/2019, Additional history exists Pneumococcal [...] filedocumented as of this encounter Care Teams New Grad Rn Relationship Specialty Start Date End Date Parker Abraham MD [address] [place] [address] PCP - General Family Medicine 08/27/20 documented as of this encounter
[2023-06-22] MEDS: STAT IV Infusion **Titration per Protocol STA (00:44)
--- NOTE | 2023-06-22 00:47 | Critical Care Consultation ---
Date of Consultation June 22, 2023 Assessment & Plan (1) Acute CVA (cerebrovascular accident): Impression: 82-year-old male with PMH of TIA, proximal A-fib (not anticoagulated due to previous hematuria), CAD s/p PCI, HLD, HTN presents to the ICU following cerebellar stroke for which he received TNKase. Neuro - Acute CVA: Patient presented emergency department strokelike symptoms with right-sided weakness, deviated gaze, dysarthria, and right facial droop. 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 TNKase was administered at 2204 -Patient does have history of proximal A-fib, is not anticoagulated due to history of hematuria. He did have TIA in 2018 -Consulted neurology -Follow-up MRI -Repeat CT head at 24 hours -Admitted to ICU for post 24-hour TNKase administration Cardiac - CADs/p PCI. ASA on hold for 24 hours Hypertensionoral medications currently on hold. Patient was noted to have significant hypertension on presentation to the emergency department and received multiple doses of labetalol and now on nicardipine drip. Will allow permissive hypertension following stroke and keep SBP below 180. Respiratory - No history of pulmonary disease. Currently maintaining oxygen saturation on nasal cannula without respiratory distress. Chest x-ray pending. Continuous monitoring pulse ox GI - N.p.o. RENAL/LYTES - Creatinine within normal limits. Monitor routine BMPs and replete electrolytes as indicated - Hematuriapatient developed hematuria s/p TNKase administration. Per conversation with he has previously had a TUNA procedure and was previously on anticoagulation due to PAF which was discontinued for history of hematuria. -Urology consulted. Hold on Gonzales administration as this could make bleeding worse -Trend H&H for now ENDO - No history of diabetes or thyroid disease. ICU hyperglycemic protocol HEME - H&H within normal limits. Will trend due to hematuria. Transfuse as indicated ID - No indication for infectious process at this time LINES/IV ACCESS - Peripheral IV DVT PROPHYLAXIS - SCDs, holding anticoagulation following TNKase administration Thank you for allowing us to participate in the care of this patient. Please refer to my attending physician's documentation for any further recommendations. (2) Coronary artery disease: (3) PAF (paroxysmal atrial fibrillation): (4) Hyperlipidemia: (5) BPH (benign prostatic hyperplasia): (6) Hematuria: History of Present Illness History of Present Illness Patient is a 82-year-old male with past medical history HTN, TIA, HDL, CAD (post PCI), PAF (not anticoagulated due to hematuria), and TUNA procedure who presents to the emergency department with strokelike symptoms earlier this evening. Last known normal 1800, was found by after she came home from running errands. Patient was on the ground with slurred speech, right-sided facial droop, and right upper extremity weakness. On arrival to the emergency department he was noted to have deviated gaze. He was taken for CT head which was negative for acute intracranial findings. CTA head and neck revealed thrombosis of the left anterior superior cerebellar artery, with a small amount of thrombus seen extending into the basilar artery consistent with acute stroke, otherwise unremarkable CTA of brain. Patient was evaluated by teleneurologist, and LVO was ruled out. TNKase was administered at 2206. On evaluation, patient is alert and oriented but does have significant dysarthria without aphasia. He is noted also to have deviated gaze and reports diplopia. He is also noted to have right sided facial droop. He appears to have equal and full strength strength on upper and lower extremities, without drift on exam. He does report having 2 episodes of nausea and vomiting after TNKase was administered. He did have a repeat CT head Noncon after this event which was negative for acute intracranial findings. He denies any headache, dizziness, numbness or tingling. He denies recent illness or fevers, shortness of breath, cough or congestion, chest pain or palpitations, abdominal pain, diarrhea, swelling in hands or feet, rashes. Patient is starting to have hematuria following TNKase administration and urology has been consulted. Further management in ICU at this time. Allergies Allergy/AdvReac Type Severity Reaction Status Date / Time No Known Drug Allergies Allergy Unknown ` Verified 06/21/23 22:14 Home Medications Medication Instructions Recorded Confirmed Type acetaminophen 500 mg tablet 500 - 1,000 mg PO Q6H PRN Pain 06/21/23 06/21/23 History (Tylenol Extra Strength) amlodipine 2.5 mg tablet 2.5 mg PO DAILY 06/21/23 06/21/23 History celecoxib 200 mg capsule 200 mg PO QAM 06/21/23 06/21/23 History colchicine 0.6 mg tablet 0.6 mg PO DIRECTED PRN .gout 06/21/23 06/21/23 History dronedarone 400 mg tablet (Multaq) 400 mg PO AMHS 06/21/23 06/21/23 History dutasteride 0.5 mg capsule 0.5 mg PO QAM 06/21/23 06/21/23 History lisinopril 30 mg tablet 30 mg PO DAILY 06/21/23 06/21/23 History metoprolol tartrate 50 mg tablet 50 mg PO BID 06/21/23 06/21/23 History sildenafil 50 mg tablet (Viagra) 50 mg PO DAILY PRN .. 06/21/23 06/21/23 History simvastatin 10 mg tablet 10 mg PO QPM 06/21/23 06/21/23 History Patient History Social History Smoking Status: Former smoker Second Hand Exposure: No; Do You Dip or Chew Tobacco: No; Tobacco Cessation Education Requested by Patient: No Hx Alcohol Use: Yes Alcohol type: wine Hx Substance Use: No Preferred Language: Serbian Communication Ability: Impaired [place] Attorney Required: No Beliefs That Will Affect Care: None Current Living Situation: Spouse Other Information That Helps Us Care for You: No Feels Safe at Home: Yes Safety Concerns: Feels Safe At This Time Assistive Devices: None Review of Systems Review of Systems: All systems reviewed & are unremarkable except as noted in HPI & below Physical Exam Constitutional: cooperative and comfortable; no acute distress Eyes: Deviated gaze with diplopia. Pupils equal round and reactive to light. Conjunctive normal ENMT: Right sided facial droop. Normocephalic otherwise Neck: trachea midline, no thyromegaly Respiratory: normal respiratory effort, lungs clear to auscultation Cardiovascular: Rate/Rhythm: regular rate and regular rhythm Heart Sounds: normal S1 and normal S2; no murmur Vessels: no JVD Extremities: no edema Gastrointestinal (Abdomen): normal bowel sounds, soft, nontender, no hepatosplenomegaly Musculoskeletal: no cyanosis or clubbing, extremities motor strength 5/5 Skin: no rashes, warm and dry Neurologic: Right-sided facial droop, deviated gaze, dysarthria. ANO x 3, no aphasia. No motor/sensory deficits otherwise Psychiatric: A+Ox3, euthymic affect Genitourinary: Hematuria with bright red blood Results & Data Results & Data Vital Signs (Past 12 Hours) Vital Signs Temp Pulse Pulse Resp BP BP Pulse Ox 06/21/23 23:38 79 19 158/90 H 94 06/21/23 23:23 92 H 19 141/78 H 94 06/21/23 23:08 86 20 115/90 93 06/21/23 22:44 77 18 171/105 H 94 06/21/23 22:38 89 17 171/105 H 94 06/21/23 22:29 87 169/123 H 06/21/23 22:24 95 H 169/123 H 06/21/23 22:22 83 16 206/97 H 92 06/21/23 22:10 83 154/103 H 06/21/23 22:09 83 154/103 H 06/21/23 22:00 83 17 154/103 H 92 06/21/23 21:57 85 177/103 H 06/21/23 21:54 90 06/21/23 21:50 85 18 171/111 H 92 06/21/23 21:50 81 171/111 H 06/21/23 21:45 87 18 184/104 H 91 06/21/23 21:41 75 197/101 H 06/21/23 21:31 36.5 C 75 18 197/101 H O2 Del Method O2 Flow Rate 06/21/23 23:38 Nasal Cannula 2 06/21/23 23:23 Nasal Cannula 2 06/21/23 23:08 Nasal Cannula 2 06/21/23 22:44 Nasal Cannula 2 06/21/23 22:38 Nasal Cannula 2 06/21/23 22:29 06/21/23 22:24 06/21/23 22:22 Room Air 06/21/23 22:10 06/21/23 22:09 06/21/23 22:00 06/21/23 21:57 06/21/23 21:54 06/21/23 21:50 06/21/23 21:50 06/21/23 21:45 06/21/23 21:41 06/21/23 21:31 Room Air Diagnostic Findings Exam(s): CT HEAD Without Contrast EXAM: CT Head Without Intravenous Contrast CLINICAL HISTORY: Reason for exam: vomiting post tnk. TECHNIQUE: Axial computed tomography images of the head/brain without intravenous contrast. CTDI is 38.1 mGy and DLP is 624.41 mGy-cm. Automated exposure control was utilized for the study. A dose lowering technique was utilized adhering to the principles of ALARA. COMPARISON: No relevant prior studies available. FINDINGS: No acute intracranial hemorrhage. No midline shift or mass effect. The territorial solano-white matter differentiation is maintained throughout. Age-related cerebral volume loss. Periventricular and subcortical white matter hypoattenuation, consistent with chronic microangiopathy. The visualized orbits appear grossly unremarkable. The calvarium is intact. The visualized paranasal sinuses and mastoid air cells are grossly clear. IMPRESSION: No acute intracranial hemorrhage, midline shift, or mass effect. Electronically signed by: Cj Castro MD 06/21/23 23:[address] OF THE BRAIN; CT ANGIOGRAM OF THE BRAIN; CT ANGIOGRAM OF THE NECK CLINICAL HISTORY: Neurological deficit. Stroke like symptoms. Right-sided weakness. Slurred speech. COMPARISON STUDY: CT angiogram of the head and neck dated 12/30/2017. MRI of the brain dated 12/31/2017. TECHNIQUE: Unenhanced axial CT scan of the brain is performed. Subsequently, following the IV administration of 118 of Optiray 320, CT angiogram of the head and neck was performed from the aortic arch to the vertex. Images are reviewed in the axial, sagittal, and coronal planes. 3-D MIPS images are created and assessed. IV contrast was administered without complication. All measurements were calculated based on NASCET criteria. A dose lowering technique was utilized adhering to the principles of ALARA. CT DOSE: 1380.12 mGy.cm FINDINGS: Brain parenchyma: There is age-related involutional change noting mild subcortical and periventricular microcatheter pathic disease. Right occipital encephalomalacia is consistent with a remote infarct. Chronic lacunar infarcts are noted in the right thalamus and the right cerebellar hemisphere. There is no hemorrhage, mass effect, or evidence of acute territorial ischemia by CT criteria. There is no evidence of enhancing mass lesion on the angiogram phase images. The ventricles, sulci, and cisterns are prominent secondary to involutional change. Solano-white matter differentiation is preserved. No extra- axial fluid collection is seen. Thoracic aorta: There is atherosclerotic calcification of the thoracic aorta. Visualized portions of the thoracic aorta are normal in caliber. The aortic arch demonstrates standard 3-vessel anatomy. Right carotid arterial system: The right common carotid artery is widely patent, as are the right internal and external carotid arteries. Calcified plaque is seen in the carotid bulb. Left carotid arterial system: The left common carotid artery is widely patent, as are the left internal and external carotid arteries. Calcified plaque is noted in the carotid bulb. Vertebral arteries: The vertebral arteries are widely patent bilaterally and codominant in the neck. Subclavian arteries: Widely patent bilaterally. Intracranial vasculature: There is atherosclerotic calcification of the cavernous carotid and vertebral arteries. The internal carotid arteries are patent at the skull base, as are the anterior and middle cerebral arteries bilaterally. The vertebrobasilar system and posterior cerebral arteries are widely patent. The left vertebral artery is dominant. A posterior communicating artery is noted on the left. 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 This is best seen on image #106. Additional foci of focal vessel caliber seen throughout the intracranial circulation. No aneurysm is identified.. Jugular veins: Patent bilaterally. Dural sinuses: Patent. Lung apices: Partially visualized upper lobe lung parenchyma appears clear. Soft tissues: The visualized pharyngeal soft tissues are normal in appearance noting angiographic phase technique. The oropharyngeal airway appears widely patent. The salivary and thyroid glands are normal in appearance. No cervical lymphadenopathy is seen. Skeletal structures: The skeletal structures are osteopenic. The calvarium appears intact. The cervical spine is maintained noting mild spondylosis. Orbits: The bony orbits are intact. Orbital contents are normal as visualized. Sinuses and mastoids: The paranasal sinuses are clear. There is a large right mastoid effusion. Fluid fills the right middle ear. The left mastoid air cells are well pneumatized. IMPRESSION: 1. 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 This represents a significant change from the 12/30/2017 CT angiogram of the brain and likely represents acute stroke. 2. The brain parenchyma is normal in appearance. There is no hemorrhage or mass effect. 3. Otherwise unremarkable CT angiogram of the brain. 4. Unremarkable CT angiogram of the neck. ACT 112: Negative or not required by law. Electronically signed by: Ramu Gonzales M.D. 06/21/2023 9:45 PM Coding Level of Care Code 14698 IN/OBS CONSULT LVL 3,45M Diagnoses Acute CVA (cerebrovascular accident) I63.9 Coronary artery disease I25.10 PAF (paroxysmal atrial fibrillation) I48.0 Hyperlipidemia E78.5 BPH (benign prostatic hyperplasia) N40.0 Hematuria R31.9 Time Spent (min) 50
[2023-06-22] MEDS ORDERED: PROMETHAZINE HCL 6.25 MG in SODIUM CHLORIDE 0.9% 50 ML IV PRN (00:59)
[2023-06-22] MEDS ORDERED: PHARMACIST DISCHARGE MED REC CONSULT PRN (01:39)
[2023-06-22] MEDS: MAGNESIUM SULFATE / D5W 1 GM/100 ML BAG IV STA (02:12)
--- NOTE | 2023-06-22 03:12 | CT Scan Report ---
Exam(s): CT ABDOMEN + PELVIS Without Contrast EXAM: CT Abdomen and Pelvis Without Intravenous Contrast CLINICAL HISTORY: Reason for exam: hematuria. TECHNIQUE: Axial computed tomography images of the abdomen and pelvis without intravenous contrast. CTDI is 21.98 mGy and DLP is 1094.63 mGy-cm. Automated exposure control was utilized for the study. A dose lowering technique was utilized adhering to the principles of ALARA. COMPARISON: 07/01/18. FINDINGS: Lung bases: Bilateral lower lobe atelectasis versus residual infiltrates. Heart: Mild cardiomegaly. ABDOMEN: Liver: Unremarkable. Gallbladder and bile ducts: Possible tiny gallstones, otherwise unremarkable gallbladder and biliary system. No ductal dilation. Pancreas: Unremarkable. No ductal dilation. Spleen: Unremarkable. No splenomegaly. Adrenals: Unremarkable. No mass. Kidneys and ureters: Unremarkable. No obstructing stones. No hydronephrosis. Stomach and bowel: Unremarkable. No obstruction. No mucosal thickening. PELVIS: Appendix: Normal appendix . Bladder: Unremarkable. No stones. Reproductive: Moderate to significant prostate enlargement. Surgical clips at the level of the scrotal region, correlation with type of surgery recommended. ABDOMEN and PELVIS: Intraperitoneal space: Unremarkable. No free air. No significant fluid collection. Bones/joints: Multilevel degenerative disease of the spine. No acute fracture. No dislocation. Soft tissues: Small left-sided fat-containing inguinal hernia. Vasculature: Calcified atherosclerotic disease of aorta with no aneurysm. Lymph nodes: Unremarkable. No enlarged lymph nodes. IMPRESSION: 1. No hydronephrosis or hydroureter. Unremarkable urinary bladder. Prostate enlargement. 2. No acute appendicitis or bowel obstruction. 3. Possible tiny gallstones, otherwise unremarkable abdominal viscera. Electronically signed by: Missy Gutierrez MD 06/22/23 03:11 AM
[2023-06-22] MEDS: LABETALOL HCL IV 5 MG/ML 20ML IV PRN (04:49)
[2023-06-22 04:54] LABS: Hematocrit (blood only) 43.6 % (42.0-52.0); Hemoglobin 14.8 g/dl (14.0-18.0); Mean Corpuscular Hemoglobin 32.3 pg (25.0-34.0); Mean Corpuscular Hgb Conc 33.9 g/dL (32.0-36.0); Mean Corpuscular Volume 95.2 fL (80.0-100.0); Platelet Count 185 K/uL (130-400); RDW Coefficient of Variation 12.9 % (11.5-14.5); RDW Standard Deviation 44.3 fL (36.4-46.3); Red Blood Count 4.58 M/uL (4.70-6.10); White Blood Count 10.73 K/ul (4.8-10.8)
[2023-06-22 04:56] LABS: BUN Creatinine Ratio 15.7 (10-20); Calcium 9.2 mg/dl (8.6-10.3); Chol HDL Ratio 3.2 (0-5); Creatinine Clr Calc Pharmacy 51.8 ml/min; Est GFR (African American) 73.2 ml/min; Est GFR (Non-African American) 63.1 ml/min; Potassium 3.9 mmol/L (3.5-5.1)
[2023-06-22 05:37] LABS: Basophils # (auto) 0.02 K/uL (0.00-0.20); Basophils % (auto) 0.2 %; Immature Granulocytes # (auto) 0.06 K/uL (0.01-0.20); Immature Granulocytes % (auto) 0.6 %; Lymphocytes # (auto) 0.47 K/uL (1.20-3.40); Lymphocytes % (auto) 4.4 %; Monocytes # (auto) 0.36 K/uL (0.11-0.59); Monocytes % (auto) 3.4 %; Neutrophils # (auto) 9.82 K/uL (1.40-6.50); Neutrophils % (auto) 91.4 %
--- NOTE | 2023-06-22 06:50 | XRay Report ---
SINGLE VIEW CHEST CLINICAL HISTORY: Hypertension. FINDINGS: An AP, portable, upright chest radiograph is compared to study dated 12/31/2017. The heart i s enlarged and noting atherosclerotic calcification of the thoracic aorta. There is pulmonary vascula r congestion with mild interstitial edema. Atelectasis is noted at both lung bases. No large pleural effusion or pneumothorax is seen. The skeletal structures are osteopenic. The bony thorax is grossly intact. IMPRESSION: Cardiomegaly with evidence of congestive failure and mild pulmonary edema. ACT 112: Negative or not required by law. Electronically signed by: Ramu Gonzales M.D. 06/22/2023 6:49 AM
--- NOTE | 2023-06-22 07:07 | Electrocardiogram Report ---
Test Reason : Blood Pressure : / mmHG Vent. Rate : 083 BPM Atrial Rate : 000 BPM P-R Int : 000 ms QRS Dur : 088 ms QT Int : 400 ms P-R-T Axes : 000 027 054 degrees QTc Int : 470 ms Atrial fibrillation Nonspecific ST and T wave abnormality Abnormal ECG When compared with ECG of 31-DEC-2017 06:46, Atrial fibrillation has replaced Sinus rhythm Vent. rate has increased BY 33 BPM Non-specific change in ST segment in Lateral leads T wave inversion no longer evident in Inferior leads Confirmed by Daniel Kwong ([id number]) on 06/22/2023 7:07:10 AM Referred By: REFERRED SELF Confirmed By:Oneil Kwong
[2023-06-22 07:17] LABS: Appearance Urine Clear (Clear); Bilirubin Urine Negative (Negative); Blood Urine Negative (Negative); Color Urine Yellow; Glucose Urine UA Negative (Negative); Ketones Urine Negative (Negative); Leukocyte Esterase Urine Negative (Negative); Nitrite Urine Negative (Negative); Protein Urine Negative (Negative); Specific Gravity Urine 1.017 (1.000-1.030); Urobilinogen Urine Negative (Negative); pH Urine 7.5 (4.5-7.5)
[2023-06-22 07:37] LABS: Estimated Average Glucose 114 mg/dl; Hemoglobin A1C 5.6 % (4.5-5.6)
[2023-06-22] MEDS: ICU Protocol for HYPERglycemia SCH (07:57)
[2023-06-22] MEDS ORDERED: HYDROmorphone INJ 0.5 MG/0.5 ML SYR IV PRN (08:09)
--- NOTE | 2023-06-22 09:03 | Urology Consultation ---
Date of Consultation June 22, 2023 Assessment & Plan (1) Hematuria: (2) BPH (benign prostatic hyperplasia): Plan Urinary retention and hematuria after thrombolysis for CVA Unfortunately will continue to bleed for the next several days given his recent treatment On assessment, his catheter is not positioned into the bladder and I think this is significantly contributing to his discomfort and inability to empty his bladder I first attempted to salvage the catheter they had in place which was a three- way 22 Moroccan catheterI could not advance this into the bladder and I removed it in turn placed a 2 way 22 Moroccan coud catheter utilizing sterile technique Had an immediate release of almost 1 L of urine and immediate relief of pain His urine is actually relatively clear coming through the tubing during most of the drainage I expect that he will have intermittent hematuria, however. Leave the catheter in place, manually flush as needed Do not exchange this catheter History of Present Illness Attending Physician: Wili Singh MD History of Present Illness 82-year-old gentleman who suffered an ischemic CVA last night Presented to the emergency room and ultimately was assessed and treated with thrombolysis immediately after administration of thrombolysis he developed hematuria has had similar episodes in the past (in 2018 had a brief trial of plavix that was stopped secondary to hematuria) He had a CT earlier this morning which shows a distended bladder with contrast filling the bladder but not a significant amount of clot He has a very large prostate He reports that he did TUNA many years ago, has not seen a urologist recently The primary hospital team called me around 1 AM and we discussed a strategy for managing this At the time he was voiding spontaneously we elected to try to leave him without a catheter They contact me again at 430 this morning and discussed a straight catheterization, when I arrived this morning they have a 22 Moroccan Gonzales catheter that is certainly not in the bladder with the balloon inflated within the prostate It is draining a small amount of bloody urine He is quite uncomfortable and has a palpably distended bladder Allergies Allergy/AdvReac Type Severity Reaction Status Date / Time No Known Drug Allergies Allergy Unknown ` Verified 06/21/23 22:14 Home Medications Medication Instructions Recorded Confirmed Type acetaminophen 500 mg tablet 500 - 1,000 mg PO Q6H PRN Pain 06/21/23 06/21/23 History (Tylenol Extra Strength) amlodipine 2.5 mg tablet 2.5 mg PO DAILY 06/21/23 06/21/23 History celecoxib 200 mg capsule 200 mg PO QAM 06/21/23 06/21/23 History colchicine 0.6 mg tablet 0.6 mg PO DIRECTED PRN .gout 06/21/23 06/21/23 History dronedarone 400 mg tablet (Multaq) 400 mg PO AMHS 06/21/23 06/21/23 History dutasteride 0.5 mg capsule 0.5 mg PO QAM 06/21/23 06/21/23 History lisinopril 30 mg tablet 30 mg PO DAILY 06/21/23 06/21/23 History metoprolol tartrate 50 mg tablet 50 mg PO BID 06/21/23 06/21/23 History sildenafil 50 mg tablet (Viagra) 50 mg PO DAILY PRN .. 06/21/23 06/21/23 History simvastatin 10 mg tablet 10 mg PO QPM 06/21/23 06/21/23 History Patient History Social History Smoking Status: Former smoker Second Hand Exposure: No; Do You Dip or Chew Tobacco: No; Tobacco Cessation Education Requested by Patient: No Hx Alcohol Use: Yes Alcohol type: wine Hx Substance Use: No Preferred Language: Telugu Communication Ability: Impaired Dish Room Worker Required: No Beliefs That Will Affect Care: None Current Living Situation: Spouse Other Information That Helps Us Care for You: No Feels Safe at Home: Yes Safety Concerns: Feels Safe At This Time Assistive Devices: None Physical Exam Physical Exam: Patient appears to be mentating well Appropriately interactive Seems to be moving all extremities Abdomen is tender, his bladder is palpably distended and firm He has a Gonzales catheter with a significant amount of the catheter visible beyond the meatus There is bloody urine within the bag Results & Data Vital Signs (Past 12 Hours) Vital Signs Temp Pulse Pulse Resp BP BP Pulse Ox 06/22/23 08:00 91 H 20 186/106 H 98 06/22/23 07:06 74 21 181/89 H 100 06/22/23 06:06 36.6 C 70 20 160/71 H 99 06/22/23 05:36 36.7 C 73 22 177/117 H 94 06/22/23 05:06 36.7 C 77 20 143/84 H 94 06/22/23 05:04 77 143/84 H 06/22/23 04:49 78 185/93 H 06/22/23 04:36 36.5 C 76 20 185/93 H 95 06/22/23 04:06 36.6 C 75 22 184/107 H 97 06/22/23 03:36 36.6 C 83 18 178/112 H 98 06/22/23 03:06 36.5 C 80 20 162/104 H 99 06/22/23 02:36 36.5 C 73 18 175/99 H 99 06/22/23 02:24 75 06/22/23 02:06 36.5 C 74 18 166/94 H 99 06/22/23 02:00 06/22/23 01:51 36.5 C 06/22/23 01:43 165/119 H 06/22/23 01:43 77 4 L 99 06/22/23 01:39 06/22/23 01:37 78 18 98 06/22/23 01:37 188/117 H 06/22/23 01:36 36.5 C 78 18 188/117 H 99 06/22/23 01:00 79 15 95 06/22/23 00:38 85 20 171/94 H 94 06/22/23 00:08 83 20 162/98 H 93 06/21/23 23:53 86 20 171/89 H 93 06/21/23 23:38 79 19 158/90 H 94 06/21/23 23:23 92 H 19 141/78 H 94 06/21/23 23:08 86 20 115/90 93 06/21/23 22:44 77 18 171/105 H 94 06/21/23 22:38 89 17 171/105 H 94 06/21/23 22:29 87 169/123 H 06/21/23 22:24 95 H 169/123 H 06/21/23 22:22 83 16 206/97 H 92 06/21/23 22:10 83 154/103 H 06/21/23 22:09 83 154/103 H 06/21/23 22:00 83 17 154/103 H 92 06/21/23 21:57 85 177/103 H 06/21/23 21:54 90 06/21/23 21:50 85 18 171/111 H 92 06/21/23 21:50 81 171/111 H 06/21/23 21:45 87 18 184/104 H 91 06/21/23 21:41 75 197/101 H 06/21/23 21:31 36.5 C 75 18 197/101 H Pulse Ox O2 Del Method O2 Del Method O2 Flow Rate 06/22/23 08:00 Nasal Cannula 2 06/22/23 07:06 Nasal Cannula 2 06/22/23 06:06 Nasal Cannula 2 06/22/23 05:36 Nasal Cannula 2 06/22/23 05:06 Nasal Cannula 2 06/22/23 05:04 06/22/23 04:49 06/22/23 04:36 Nasal Cannula 2 06/22/23 04:06 Nasal Cannula 2 06/22/23 03:36 Nasal Cannula 2 06/22/23 03:06 Nasal Cannula 2 06/22/23 02:36 Nasal Cannula 2 06/22/23 02:24 06/22/23 02:06 Nasal Cannula 2 06/22/23 02:00 Nasal Cannula 2 06/22/23 01:51 06/22/23 01:43 06/22/23 01:43 06/22/23 01:39 99 Room Air 06/22/23 01:37 06/22/23 01:37 06/22/23 01:36 Nasal Cannula 2 06/22/23 01:00 06/22/23 00:38 Nasal Cannula 2 06/22/23 00:08 Nasal Cannula 2 06/21/23 23:53 Nasal Cannula 2 06/21/23 23:38 Nasal Cannula 2 06/21/23 23:23 Nasal Cannula 2 06/21/23 23:08 Nasal Cannula 2 06/21/23 22:44 Nasal Cannula 2 06/21/23 22:38 Nasal Cannula 2 06/21/23 22:29 06/21/23 22:24 06/21/23 22:22 Room Air 06/21/23 22:10 06/21/23 22:09 06/21/23 22:00 06/21/23 21:57 06/21/23 21:54 06/21/23 21:50 06/21/23 21:50 06/21/23 21:45 06/21/23 21:41 06/21/23 21:31 Room Air PG Care Time/CCT Total # of Minutes Spent Total Time Spent with Patient: Total time spent is greater than 50% in coordination of care (as documented) at patient's floor/unit and/or counseling patient: Coding Level of Care Code 09937 IN/OBS CONSULT LVL 4,60M Diagnoses Hematuria R31.9 BPH (benign prostatic hyperplasia) N40.0
[2023-06-22 09:57] LABS: Hematocrit (blood only) 41.6 % (42.0-52.0); Hemoglobin 14.2 g/dl (14.0-18.0); Mean Corpuscular Hemoglobin 32.5 pg (25.0-34.0); Mean Corpuscular Hgb Conc 34.1 g/dL (32.0-36.0); Mean Corpuscular Volume 95.2 fL (80.0-100.0); Mean Platelet Volume 11.8 fL (9.4-12.4); Platelet Count 165 K/uL (130-400); RDW Coefficient of Variation 12.6 % (11.5-14.5); RDW Standard Deviation 44.2 fL (36.4-46.3); Red Blood Count 4.37 M/uL (4.70-6.10); White Blood Count 11.89 K/ul (4.8-10.8)
[2023-06-22 10:13] LABS: Basophils # (auto) 0.01 K/uL (0.00-0.20); Basophils % (auto) 0.1 %; Immature Granulocytes # (auto) 0.05 K/uL (0.01-0.20); Immature Granulocytes % (auto) 0.4 %; Lymphocytes # (auto) 0.39 K/uL (1.20-3.40); Lymphocytes % (auto) 3.3 %; Monocytes # (auto) 0.61 K/uL (0.11-0.59); Monocytes % (auto) 5.1 %; Neutrophils # (auto) 10.83 K/uL (1.40-6.50); Neutrophils % (auto) 91.1 %
[2023-06-22 10:15] LABS: BUN Creatinine Ratio 14.9 (10-20); Creatinine Clr Calc Pharmacy 46.3 ml/min; Est GFR (African American) 63.8 ml/min
--- NOTE | 2023-06-22 10:26 | Magnetic Resonance Report ---
MRI OF THE BRAIN WITHOUT IV CONTRAST CLINICAL HISTORY: Stroke status post TPA. COMPARISON STUDY: CT and CT angiogram of the brain dated 06/21/2023. TECHNIQUE: MRI of the brain was performed utilizing various T1 and T2-weighted sequences in the axial , sagittal, and coronal planes. IV contrast was not administered for this examination. FINDINGS: Brain parenchyma: There is a large region of restricted diffusion in the left anterior superior cereb ral artery distribution consistent with an acute to subacute infarct. No additional foci of restricte d diffusion are identified. There are small chronic infarcts in the right thalamus, the right occipit al cortex, the right parietal cortex, and the right cerebellar hemisphere. There is no hemorrhage or mass effect. There is age related involutional change noting minimal microangiopathic disease. No ext ra-axial fluid collection is seen. The cerebellar tonsils are normal in configuration. Ventricles, sulci, and cisterns: Prominent secondary to involutional change. Pituitary and sella: Unremarkable. Intracranial vasculature: Normal flow voids are maintained at the skull base. Orbits: The bony orbits are grossly intact. Orbital contents are normal in appearance. Sinuses and mastoids: There is trace mucosal thickening ethmoid sinuses. The remaining paranasal sinu ses are clear. There are right larger than left mastoid effusions. Fluid is also seen in the right mi ddle ear. Calvarium: Unremarkable. Cervical cord: Partially visualized cervical spinal cord is normal in morphology and signal intensity . IMPRESSION: 1. There is a large acute to subacute left cerebellar infarct in the anterior superior cerebellar art keely territory. This corresponds to the findings on yesterday's CT angiogram of the brain. 2. No additional foci of acute ischemia are identified. 3. There is no hemorrhage or mass effect. 4. There are several small chronic infarcts as above. 5. Right-sided otomastoiditis. ACT 112: Negative or not required by law. Electronically signed by: Ramu Gonzales M.D. 06/22/2023 10:23 AM
--- NOTE | 2023-06-22 11:05 | Neurology Consultation ---
Date of Consultation June 22, 2023 Assessment & Plan (1) Acute CVA (cerebrovascular accident): L cerebellar embolic appearing stroke in the setting of afib not on anticoagulation due to chronic hematuria. Agree with aspirin for now. He is an excellent candidate otherwise for atrial appendage closure. Recommend referral to a tertiary center where this can be performed. Otherwise patient is likely ataxic on the L and will benefit from PT, possibly short rehab placement. -- Aspirin 81mg daily for now -- Therapy eval for placement -- Goal normotension -- Agree with lipitor 40mg daily -- Referral to cardiology for atrial appendage closure -- Neurology follow-up in 4-6 weeks -- No further neurologic workup Telehealth Consultation Telehealth Information Telehealth Information: I performed this visit using a real-time telehealth connection between my location and the patients location ([facility]). After connecting through interactive tele-video, patient was identified by name and date of and/or wristband check.Patient (or authorized healthcare security representative) was informed that this was a telemedicine visit and it was being conducted confidentially over secure lines. My office door was closed and no one else was present in the room with me.Patient (or authorized healthcare security representative) provided consent to proceed with the visit, expressed an understanding of privacy and security of the telemedicine visit, and gave permission to have a hospital security representative in the room in order to assist with the visit and to conduct portions of the visit, as needed. I informed the patient (or authorized healthcare security representative) that I reviewed their record and presented the opportunity for them to ask any questions regarding the visit today. The patient agreed to participate. History of Present Illness Reason for Consultation: Stroke Requesting Physician: Dr. Singh Attending Physician: Wili Singh MD History of Present Illness Austyn Ricardo is an 82 yo M presenting with R sided weakness and gaze preference, now improved s/p TNK. Today he reports feeling back to normal after his urinary cathether was fixed. He reiterates his history of afib but with significant hematuria he is not on anticoagulation. To his knowledge he has never been evaluated for appendage closure. He otherwise denies any weakness, numbness, vertigo while lying still or vision changes. Allergies Allergy/AdvReac Type Severity Reaction Status Date / Time No Known Drug Allergies Allergy Unknown ` Verified 06/21/23 22:14 Home Medications Medication Instructions Recorded Confirmed Type acetaminophen 500 mg tablet 500 - 1,000 mg PO Q6H PRN Pain 06/21/23 06/21/23 History (Tylenol Extra Strength) amlodipine 2.5 mg tablet 2.5 mg PO DAILY 06/21/23 06/21/23 History celecoxib 200 mg capsule 200 mg PO QAM 06/21/23 06/21/23 History colchicine 0.6 mg tablet 0.6 mg PO DIRECTED PRN .gout 06/21/23 06/21/23 History dronedarone 400 mg tablet (Multaq) 400 mg PO AMHS 06/21/23 06/21/23 History dutasteride 0.5 mg capsule 0.5 mg PO QAM 06/21/23 06/21/23 History lisinopril 30 mg tablet 30 mg PO DAILY 06/21/23 06/21/23 History metoprolol tartrate 50 mg tablet 50 mg PO BID 06/21/23 06/21/23 History sildenafil 50 mg tablet (Viagra) 50 mg PO DAILY PRN .. 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 Oriented to person, place, and time. Fluent. Comprehension intact. Affect appropriate. Cranial Nerves: II: pupils 3/3 to 2/2, jordan grossly intact. III/IV/: Versions intact without nystagmus, no gaze preference. V: Facial sensation symmetric to light touch VII: Facial expression symmetric VIII: Hearing intact to voice Motor: Strength was symmetric and antigravity throughout. Pronator drift was absent. Coordination: Mild dysmetria in the LUE Reflexes: Unable to assess over telemedicine Results & Data Vital Signs (Past 12 Hours) Vital Signs Temp Pulse Pulse Resp BP BP Pulse Ox 06/22/23 08:00 91 H 20 186/106 H 98 06/22/23 07:06 74 21 181/89 H 100 06/22/23 06:06 36.6 C 70 20 160/71 H 99 06/22/23 05:36 36.7 C 73 22 177/117 H 94 06/22/23 05:06 36.7 C 77 20 143/84 H 94 06/22/23 05:04 77 143/84 H 06/22/23 04:49 78 185/93 H 06/22/23 04:36 36.5 C 76 20 185/93 H 95 06/22/23 04:06 36.6 C 75 22 184/107 H 97 06/22/23 03:36 36.6 C 83 18 178/112 H 98 06/22/23 03:06 36.5 C 80 20 162/104 H 99 06/22/23 02:36 36.5 C 73 18 175/99 H 99 06/22/23 02:24 75 06/22/23 02:06 36.5 C 74 18 166/94 H 99 06/22/23 02:00 06/22/23 01:51 36.5 C 06/22/23 01:43 165/119 H 06/22/23 01:43 77 4 L 99 06/22/23 01:39 06/22/23 01:37 78 18 98 06/22/23 01:37 188/117 H 06/22/23 01:36 36.5 C 78 18 188/117 H 99 06/22/23 01:00 79 15 95 06/22/23 00:38 85 20 171/94 H 94 06/22/23 00:08 83 20 162/98 H 93 06/21/23 23:53 86 20 171/89 H 93 06/21/23 23:38 79 19 158/90 H 94 06/21/23 23:23 92 H 19 141/78 H 94 06/21/23 23:08 86 20 115/90 93 Pulse Ox O2 Del Method O2 Del Method O2 Flow Rate 06/22/23 08:00 Nasal Cannula 2 06/22/23 07:06 Nasal Cannula 2 06/22/23 06:06 Nasal Cannula 2 06/22/23 05:36 Nasal Cannula 2 06/22/23 05:06 Nasal Cannula 2 06/22/23 05:04 06/22/23 04:49 06/22/23 04:36 Nasal Cannula 2 06/22/23 04:06 Nasal Cannula 2 06/22/23 03:36 Nasal Cannula 2 06/22/23 03:06 Nasal Cannula 2 06/22/23 02:36 Nasal Cannula 2 06/22/23 02:24 06/22/23 02:06 Nasal Cannula 2 06/22/23 02:00 Nasal Cannula 2 06/22/23 01:51 06/22/23 01:43 06/22/23 01:43 06/22/23 01:39 99 Room Air 06/22/23 01:37 06/22/23 01:37 06/22/23 01:36 Nasal Cannula 2 06/22/23 01:00 06/22/23 00:38 Nasal Cannula 2 06/22/23 00:08 Nasal Cannula 2 06/21/23 23:53 Nasal Cannula 2 06/21/23 23:38 Nasal Cannula 2 06/21/23 23:23 Nasal Cannula 2 06/21/23 23:08 Nasal Cannula 2 Laboratory Results Abnormal lab results 06/21/23 06/21/23 06/22/23 Range/Units 21:32 21:35 01:56 WBC (4.8-10.8) K/ul RBC 4.64 L (4.70-6.10) M/uL Hct (42.0-52.0) % Neut # (Auto) 7.53 H (1.40-6.50) K/uL Lymph # (Auto) 0.66 L (1.20-3.40) K/uL [place] # (Auto) 0.77 H (0.11-0.59) K/uL Sodium 135 L (136-145) mmol/L POC Total CO2 23 L (24-31) mmol/L Glucose 109 H (70-99(Fasting)) mg/dl POC Glucose 157 H (70-99) mg/dl POC Glucose (other) 109 H (70-99) mg/dl POC Ioniz Calcium Brenda 1.07 L (1.12-1.32) mmol/l Alkaline Phosphatase 110 H (34-104) U/L B-Natriuretic Peptide 376 H (0-100) pg/ml 06/22/23 06/22/23 06/22/23 Range/Units 04:04 07:31 09:35 WBC 11.89 H (4.8-10.8) K/ul RBC 4.58 L 4.37 L (4.70-6.10) M/uL Hct 41.6 L (42.0-52.0) % Neut # (Auto) 9.82 H 10.83 H (1.40-6.50) K/uL Lymph # (Auto) 0.47 L 0.39 L (1.20-3.40) K/uL [place] # (Auto) 0.61 H (0.11-0.59) K/uL Sodium (136-145) mmol/L POC Total CO2 (24-31) mmol/L Glucose 179 H 153 H (70-99(Fasting)) mg/dl POC Glucose 173 H (70-99) mg/dl POC Glucose (other) (70-99) mg/dl POC Ioniz Calcium Brenda (1.12-1.32) mmol/l Alkaline Phosphatase (34-104) U/L B-Natriuretic Peptide (0-100) pg/ml Diagnostic Findings MRI brain - L cerebellar stroke CTA - Small basilar non-occlusive thrombus
[2023-06-22] MEDS: FINASTERIDE 5 MG TAB PO SCH (11:12)
[2023-06-22] MEDS: DRONEDARONE HCL 400 MG TAB PO SCH (11:12)
[2023-06-22] MEDS: ATORVASTATIN 40 MG TAB PO SCH (11:12)
--- NOTE | 2023-06-22 12:20 | Hospitalist Progress Note ---
Date of Service June 22, 2023 Assessment & Plan (1) Acute CVA (cerebrovascular accident): Plan: Acute CVA Likely embolic --MRI:There is a large acute to subacute left cerebellar infarct in the anterior superior cerebellar artery territory. This corresponds to the findings on yesterday's CT angiogram of the brain.2. No additional foci of acute ischemia are identified. There is no hemorrhage or mass effect. There are several small chronic infarcts as above. 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 This represents a significant change from the 12/30/2017 CT angiogram of the brain and likely represents acute stroke. The brain parenchyma is normal in appearance. There is no hemorrhage or mass effect. Otherwise unremarkable CT angiogram of the brain. Unremarkable CT angiogram of the neck. --ECHO pending --S/P TNKase administration Continue neurochecks Allow permissive hypertension Appreciate neurology input Plan for repeat CT head per protocol Will need watchman's procedure as outpatient Neurology recommends to start on aspirin 81 mg daily when appropriate Continue Lipitor Needs follow-up with neurology in 4 to 6 weeks Continue PT OT Gross hematuria Obstructive uropathy H/O BPH Hematuria likely multifactorial secondary to TNKase, traumatic Gonzales catheter Monitor H&H and transfuse PRBCs as needed Appreciate urology input Continue Gonzales catheter (readjusted) Bladder scan as needed Hypertensive emergency In setting of acute CVA Hold antihypertensives for now to allow permissive hypertension Monitor and adjust medications as able CAD S/P stent: Previously on dual antiplatelet therapy--discontinued due to intermittent hematuria as per family Hyperlipidemia Past tobacco abuse Continue home medications DVT Px: SCDs Re: Gross hematuria Code Status Full code Admission and Anticipated Discharge Date Admission Date: June 21, 2023 Subjective Patient is seen and examined at bedside Right facial droop, dysarthria, right-sided weakness resolved Had swallow evaluation earlier today Still has some hematuria Discussed with ICU team and urology today Patient denies any chest pain, dyspnea, abdominal pain, nausea, vomiting Review of Systems Review of Systems: All systems reviewed & are unremarkable except as noted in Subjective Physical Exam Physical Exam: Physical Exam: Vitals signs as noted above General Appearance:Moderately built and nourished, no apparent distress Head: normocephalic, Atraumatic Eyes: normal inspection, EOMI Neck: supple, Trachea midline Respiratory/Chest: Normal breath sounds, CTA, No accessory muscle use Cardiovascular: Irregularly irregular, No murmur Abdomen/GI:Soft, Non tender, Bowel sounds present Extremities/Musculoskeletal:normal inspection, no edema Neurologic/Psych:AAOX3, grossly no focal neurological deficits Skin: normal color, warm Results & Data Results & Data Vital Signs (Past 12 Hours) Vital Signs Temp Pulse Pulse Resp BP BP Pulse Ox 06/22/23 09:00 79 17 146/97 H 97 06/22/23 08:00 91 H 20 186/106 H 98 06/22/23 07:06 74 21 181/89 H 100 06/22/23 06:06 36.6 C 70 20 160/71 H 99 06/22/23 05:36 36.7 C 73 22 177/117 H 94 06/22/23 05:06 36.7 C 77 20 143/84 H 94 06/22/23 05:04 77 143/84 H 06/22/23 04:49 78 185/93 H 06/22/23 04:36 36.5 C 76 20 185/93 H 95 06/22/23 04:06 36.6 C 75 22 184/107 H 97 06/22/23 03:36 36.6 C 83 18 178/112 H 98 06/22/23 03:06 36.5 C 80 20 162/104 H 99 06/22/23 02:36 36.5 C 73 18 175/99 H 99 06/22/23 02:24 75 06/22/23 02:06 36.5 C 74 18 166/94 H 99 06/22/23 02:00 06/22/23 01:51 36.5 C 06/22/23 01:43 165/119 H 06/22/23 01:43 77 4 L 99 06/22/23 01:39 06/22/23 01:37 78 18 98 06/22/23 01:37 188/117 H 06/22/23 01:36 36.5 C 78 18 188/117 H 99 06/22/23 01:00 79 15 95 06/22/23 00:38 85 20 171/94 H 94 Pulse Ox O2 Del Method O2 Del Method O2 Flow Rate 06/22/23 09:00 Nasal Cannula 2 06/22/23 08:00 Nasal Cannula 2 06/22/23 07:06 Nasal Cannula 2 06/22/23 06:06 Nasal Cannula 2 06/22/23 05:36 Nasal Cannula 2 06/22/23 05:06 Nasal Cannula 2 06/22/23 05:04 06/22/23 04:49 06/22/23 04:36 Nasal Cannula 2 06/22/23 04:06 Nasal Cannula 2 06/22/23 03:36 Nasal Cannula 2 06/22/23 03:06 Nasal Cannula 2 06/22/23 02:36 Nasal Cannula 2 06/22/23 02:24 06/22/23 02:06 Nasal Cannula 2 06/22/23 02:00 Nasal Cannula 2 06/22/23 01:51 06/22/23 01:43 06/22/23 01:43 06/22/23 01:39 99 Room Air 06/22/23 01:37 06/22/23 01:37 06/22/23 01:36 Nasal Cannula 2 06/22/23 01:00 06/22/23 00:38 Nasal Cannula 2 Laboratory Results Short CBC 06/21/23 06/22/23 06/22/23 Range/Units 21:32 04:04 09:35 WBC 9.14 10.73 11.89 H (4.8-10.8) K/ul Hgb 15.2 14.8 14.2 (14.0-18.0) g/dl Hct 43.2 43.6 41.6 L (42.0-52.0) % Plt Count 184 185 165 (130-400) K/uL BMP 06/21/23 06/22/23 06/22/23 21:32 04:04 09:35 Sodium 135 L 136 137 Potassium 3.8 3.9 4.0 Chloride 104 101 103 Carbon Dioxide 23 24 26 BUN 18 17 18 Creatinine 1.23 1.08 1.21 Glucose 109 H 179 H 153 H Calcium 9.0 9.2 9.0 Liver Function 06/21/23 Range/Units 21:32 Total Bilirubin 0.9 (0.2-1.0) mg/dl AST 21 (13-39) U/L ALT 16 (7-52) U/L Alkaline Phosphatase 110 H (34-104) U/L Albumin 4.2 (3.4-5.0) gm/dl Urine 02/10/24 Range/Units Unknown Urine Color Yellow Urine Appearance Clear (Clear) Urine pH 7.5 (4.5-7.5) Ur Specific [place] 1.017 (1.000-1.030) Urine Protein Negative (Negative) Urine Glucose (UA) Negative (Negative)
[2023-06-22] MEDS ORDERED: SIMVASTATIN 10 MG TAB PO SCH (21:00)
--- NOTE | 2023-06-22 22:19 | CT Scan Report ---
Exam(s): CT HEAD Without Contrast EXAM: CT Head Without Intravenous Contrast CLINICAL HISTORY: Reason for exam: 24 hr f/u CT Head. TECHNIQUE: Axial computed tomography images of the head/brain without intravenous contrast. CTDI is 49.83 mGy and DLP is 800.63 mGy-cm. Automated exposure control was utilized for the study. A dose lowering technique was utilized adhering to the principles of ALARA. COMPARISON: Brain MRI from June 22, 2023. FINDINGS: No acute intracranial hemorrhage. No midline shift or mass effect. Encephalomalacia in the cerebellum, concerning for old infarct. Refer to brain MRI from June 22, 2023. Age-related cerebral volume loss. Periventricular and subcortical white matter hypoattenuation, consistent with chronic microangiopathy. The visualized orbits appear grossly unremarkable. The calvarium is intact. The visualized paranasal sinuses and mastoid air cells are grossly clear. IMPRESSION: No acute intracranial hemorrhage. No midline shift or mass effect. Encephalomalacia in the cerebellum, concerning for old infarct. Refer to brain MRI from June 22, 2023. Electronically signed by: Cj Castro MD 06/22/23 22:18 PM
[2023-06-23 04:54] LABS: Hematocrit (blood only) 36.9 % (42.0-52.0); Hemoglobin 12.7 g/dl (14.0-18.0); Mean Corpuscular Hemoglobin 32.6 pg (25.0-34.0); Mean Corpuscular Hgb Conc 34.4 g/dL (32.0-36.0); Mean Corpuscular Volume 94.9 fL (80.0-100.0); Mean Platelet Volume 11.9 fL (9.4-12.4); Platelet Count 151 K/uL (130-400); RDW Coefficient of Variation 13.2 % (11.5-14.5); RDW Standard Deviation 45.9 fL (36.4-46.3); Red Blood Count 3.89 M/uL (4.70-6.10); White Blood Count 11.15 K/ul (4.8-10.8)
[2023-06-23 05:11] LABS: BUN Creatinine Ratio 16.4 (10-20); Calcium 8.4 mg/dl (8.6-10.3); Creatinine Clr Calc Pharmacy 41.8 ml/min; Est GFR (African American) 56.4 ml/min; Est GFR (Non-African American) 48.6 ml/min; Magnesium 2.3 mg/dl (1.7-2.4)
--- NOTE | 2023-06-23 09:57 | Urology Progress Note ---
Date of Service June 23, 2023 Assessment & Plan (1) Hematuria: Plan: Hematuria after clot lysis secondary to ischemic CVA Keep the Gonzales catheter in place Continuing to do okay right now Will arrange for outpatient follow-up Long-term we can discuss varying options for managing his urinary symptoms Flush catheter if clot obstruction but right now it seems that he is doing well His creatinine has increased slightly since admission, however he has had a significant number of studies and contrast as well as the stress related to his full event so I believe his values are in the expected range Admission and Anticipated Discharge Date Admission Date: June 21, 2023 Subjective Seems to be doing great today Gonzales catheter is in place He reports that he has no current neurological deficits Moving all extremities He does have some limited mobility of his hands but this is a chronic issue Otherwise feels that he is recovering extremely well from his CVA Gonzales catheter still in place and urine is certainly much clearer today than it was yesterday Had good urine output and although he had a slight uptick in his creatinine, his labs overall are quite stable all considered Physical Exam Physical Exam: Gonzales catheter in place, some of the urine in the tubing is clear there are some old clots and some dark-colored urine as well, overall exactly as would be expected Abdomen is not distended or tender Results & Data Vital Signs (Past 12 Hours) Vital Signs Temp Pulse Pulse Resp BP BP Pulse Ox 06/23/23 09:38 117 H 06/23/23 09:35 36.8 C 98 H 17 110/72 93 06/23/23 07:31 84 19 95 06/23/23 07:31 147/68 H 06/23/23 07:18 06/23/23 07:16 73 06/23/23 07:00 82 21 93 06/23/23 07:00 140/69 06/23/23 03:48 36.7 C 06/23/23 03:30 73 15 92 06/23/23 03:30 113/77 06/23/23 01:22 06/23/23 01:16 06/23/23 01:00 75 18 90 06/23/23 01:00 124/58 L 06/23/23 00:00 73 06/23/23 00:00 68 15 93 06/23/23 00:00 102/62 06/23/23 00:00 36.5 C 06/22/23 23:00 78 13 92 06/22/23 23:00 116/58 L 06/22/23 23:00 36.6 C 06/22/23 22:06 36.6 C 76 16 116/66 92 Pulse Ox O2 Del Method O2 Del Method 06/23/23 09:38 06/23/23 09:35 Room Air 06/23/23 07:31 Room Air 06/23/23 07:31 06/23/23 07:18 Room Air 06/23/23 07:16 06/23/23 07:00 Room Air 06/23/23 07:00 06/23/23 03:48 06/23/23 03:30 06/23/23 03:30 06/23/23 01:22 93 Room Air 06/23/23 01:16 93 Room Air 06/23/23 01:00 06/23/23 01:00 06/23/23 00:00 06/23/23 00:00 06/23/23 00:00 06/23/23 00:00 06/22/23 23:00 06/22/23 23:00 06/22/23 23:00 06/22/23 22:06 Room Air PG Care Time/CCT Total # of Minutes Spent Total Time Spent with Patient: Total time spent is greater than 50% in coordination of care (as documented) at patient's floor/unit and/or counseling patient: Coding Level of Care Code 09948 SUB INP/OBS CARE 2/35MIN Diagnoses Hematuria R31.9
--- NOTE | 2023-06-23 11:24 | Pharmacy Report ---
- Date of Service June 23, 2023 - Pharmacy CVA/TIA Medication Review Medications to Prevent Stroke handout has been added to the patients discharge packet. Antiplatelet(s) * Aspirin 81 mg daily Cholesterol * High intensity statin: atorvastatin 40 mg daily DVT Prophylaxis * SCD knee Therapeutic Anticoagulation * Hx Afib/Aflutter noted, but anticoagulation is being deferred due to history of chronic hematuria Type 2 Diabetes * Patient does not have T2DM
[2023-06-23] MEDS: ASPIRIN 81 MG ECTAB PO SCH (13:02)
[2023-06-23] MEDS ORDERED: METOPROLOL TARTRATE 1 MG/ML VIAL IV PRN (14:07)
--- NOTE | 2023-06-23 14:07 | Hospitalist Progress Note ---
Date of Service June 23, 2023 Assessment & Plan (1) Acute CVA (cerebrovascular accident): Plan: Acute CVA Likely embolic --MRI:There is a large acute to subacute left cerebellar infarct in the anterior superior cerebellar artery territory. This corresponds to the findings on yesterday's CT angiogram of the brain.2. No additional foci of acute ischemia are identified. There is no hemorrhage or mass effect. There are several small chronic infarcts as above. 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 This represents a significant change from the 12/30/2017 CT angiogram of the brain and likely represents acute stroke. The brain parenchyma is normal in appearance. There is no hemorrhage or mass effect. Otherwise unremarkable CT angiogram of the brain. Unremarkable CT angiogram of the neck. --ECHO: EF 60 to 65%. Moderate concentric LVH. Left atrium is moderately dilated. Mild mitral regurgitation. Mild tricuspid regurgitation. --S/P TNKase administration --Repeat CT head:No acute intracranial hemorrhage. No midline shift or mass effect. Encephalomalacia in the cerebellum, concerning for old infarct. Refer to brain MRI from June 22, 2023. Continue neurochecks Appreciate neurology input Will need watchman's procedure as outpatient start on aspirin 81 mg daily Continue Lipitor Needs follow-up with neurology in 4 to 6 weeks Continue PT OT:Recommends return Home Gross hematuria Obstructive uropathy H/O BPH Hematuria likely multifactorial secondary to TNKase, traumatic Gonzales catheter Monitor H&H and transfuse PRBCs as needed Appreciate urology input Continue Gonzales catheter (readjusted) Bladder scan as needed Discussed with urology on 06/23/2023: Ok to start on Aspirin A-fib RVR H/O Afib Resume metoprolol IV Lopressor as needed Not on chronic anticoagulation due to recurrent hematuria Hypertensive emergency In setting of acute CVA Initially Held antihypertensives for now to allow permissive hypertension Resume Metoprolol today Plan to resume amlodipine, lisinopril as able Monitor BP CAD S/P stent: Previously on dual antiplatelet therapy--discontinued due to intermittent hematuria as per family Hyperlipidemia Past tobacco abuse Continue home medications DVT Px: SCDs Re: Gross hematuria Code Status Full code Admission and Anticipated Discharge Date Admission Date: June 21, 2023 Subjective Patient is seen and examined at bedside Subjectively feels well today No new complaints Hematuria much improved Denies any focal weakness Patient denies any chest pain, dyspnea, abdominal pain, nausea, vomiting Review of Systems Review of Systems: All systems reviewed & are unremarkable except as noted in Subjective Physical Exam Physical Exam: Physical Exam: Vitals signs as noted above General Appearance:Moderately built and nourished, no apparent distress Head: normocephalic, Atraumatic Eyes: normal inspection, EOMI Neck: supple, Trachea midline Respiratory/Chest: Normal breath sounds, CTA, No accessory muscle use Cardiovascular: Irregularly irregular, No murmur, +Tachycardia Abdomen/GI:Soft, Non tender, Bowel sounds present Extremities/Musculoskeletal:normal inspection, no edema Neurologic/Psych:AAOX3, grossly no focal neurological deficits Skin: normal color, warm Results & Data Results & Data Vital Signs (Past 12 Hours) Vital Signs Temp Pulse Pulse Resp BP BP Pulse Ox 06/23/23 09:38 117 H 06/23/23 09:35 36.8 C 98 H 17 110/72 93 06/23/23 07:31 84 19 95 06/23/23 07:31 147/68 H 06/23/23 07:18 06/23/23 07:16 73 06/23/23 07:00 82 21 93 06/23/23 07:00 140/69 06/23/23 03:48 36.7 C 06/23/23 03:30 73 15 92 06/23/23 03:30 113/77 O2 Del Method 06/23/23 09:38 06/23/23 09:35 Room Air 06/23/23 07:31 Room Air 06/23/23 07:31 06/23/23 07:18 Room Air 06/23/23 07:16 06/23/23 07:00 Room Air 06/23/23 07:00 06/23/23 03:48 06/23/23 03:30 06/23/23 03:30 Laboratory Results Short CBC 06/23/23 Range/Units 04:41 WBC 11.15 H (4.8-10.8) K/ul Hgb 12.7 L (14.0-18.0) g/dl Hct 36.9 L (42.0-52.0) % Plt Count 151 (130-400) K/uL BMP 06/23/23 04:41 Sodium 135 L Potassium 4.0 Chloride 102 Carbon Dioxide 28 BUN 22 Creatinine 1.34 Glucose 107 H Calcium 8.4 L
[2023-06-23] MEDS: METOPROLOL TARTRATE 50 MG TAB PO SCH (15:39)
[2023-06-23] MEDS: SODIUM CHLORIDE 0.9% 1,000 ML IV ONE (15:47)
[2023-06-23] MEDS: ACETAMINOPHEN 1,000 MG/100 ML VIAL IV PRN (22:56)
[2023-06-24 06:59] LABS: Hematocrit (blood only) 37.1 % (42.0-52.0); Hemoglobin 12.5 g/dl (14.0-18.0); Mean Corpuscular Hemoglobin 32.3 pg (25.0-34.0); Mean Corpuscular Hgb Conc 33.7 g/dL (32.0-36.0); Mean Corpuscular Volume 95.9 fL (80.0-100.0); Mean Platelet Volume 12.2 fL (9.4-12.4); Platelet Count 129 K/uL (130-400); RDW Coefficient of Variation 13.2 % (11.5-14.5); RDW Standard Deviation 47.2 fL (36.4-46.3); Red Blood Count 3.87 M/uL (4.70-6.10); White Blood Count 10.17 K/ul (4.8-10.8)
[2023-06-24 07:24] LABS: BUN Creatinine Ratio 18.4 (10-20); Calcium 8.4 mg/dl (8.6-10.3); Creatinine Clr Calc Pharmacy 44.8 ml/min; Est GFR (African American) 61.3 ml/min; Est GFR (Non-African American) 52.9 ml/min; Potassium 4.3 mmol/L (3.5-5.1)
--- NOTE | 2023-06-24 09:57 | Urology Progress Note ---
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 Hematuria seems to be clearing He may have intermittent hematuria, however Maintain Gonzales catheter Okay to hand irrigate as needed for clot obstruction Will arrange for outpatient follow-up with our service Long-term we can discuss varying options for managing his urinary symptoms will sign off, contact our service with any additional questions/concerns Admission and Anticipated Discharge Date Admission Date: June 21, 2023 Subjective Patient seen and examined at bedside this morning No acute issues overnight Denies pain Gonzales patent and draining appropriatelyurine is clear in tubing Denies nausea/vomiting Denies fever/chills Review of Systems Constitutional: as per Subjective / HPI Gastrointestinal: as per Subjective / HPI Genitourinary: + as per Subjective / HPI Physical Exam Constitutional: well developed and well nourished; no acute distress Respiratory: normal respiratory effort; no respiratory distress and no labored breathing Gastrointestinal (Abdomen): Inspection/Auscultation: abdomen normal to inspection Musculoskeletal: Head/Neck/Chest: normocephalic Neurologic: moves all extremities and awake Psychiatric: Orientation: alert and oriented x 3 Genitourinary: Gonzales patent and draining clear urine in tubing Results & Data Vital Signs (Past 12 Hours) Vital Signs Temp Pulse Pulse Resp BP BP Pulse Ox 06/24/23 07:30 06/24/23 06:57 36.6 C 66 18 129/75 93 06/24/23 06:48 63 06/24/23 04:33 36.6 C 62 18 119/66 94 06/23/23 23:46 36.6 C 70 18 96/64 L 94 06/23/23 22:34 68 O2 Del Method 06/24/23 07:30 Room Air 06/24/23 06:57 Room Air 06/24/23 06:48 06/24/23 04:33 Room Air 06/23/23 23:46 Room Air 06/23/23 22:34 PG Care Time/CCT Total # of Minutes Spent Total Time Spent with Patient: Total time spent is greater than 50% in coordination of care (as documented) at patient's floor/unit and/or counseling patient: Coding Level of Care Code 07006 SUB INP/OBS CARE 2/35MIN Diagnoses Hematuria R31.9
--- NOTE | 2023-06-24 12:27 | Hospitalist Progress Note ---
Date of Service June 24, 2023 Assessment & Plan (1) Acute CVA (cerebrovascular accident): Plan: Acute CVA Likely embolic --MRI:There is a large acute to subacute left cerebellar infarct in the anterior superior cerebellar artery territory. This corresponds to the findings on yesterday's CT angiogram of the brain.2. No additional foci of acute ischemia are identified. There is no hemorrhage or mass effect. There are several small chronic infarcts as above. 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 This represents a significant change from the 12/30/2017 CT angiogram of the brain and likely represents acute stroke. The brain parenchyma is normal in appearance. There is no hemorrhage or mass effect. Otherwise unremarkable CT angiogram of the brain. Unremarkable CT angiogram of the neck. --ECHO: EF 60 to 65%. Moderate concentric LVH. Left atrium is moderately dilated. Mild mitral regurgitation. Mild tricuspid regurgitation. --S/P TNKase administration --Repeat CT head:No acute intracranial hemorrhage. No midline shift or mass effect. Encephalomalacia in the cerebellum, concerning for old infarct. Refer to brain MRI from June 22, 2023. Continue neurochecks Appreciate neurology input Will need watchman's procedure as outpatient start on aspirin 81 mg daily Continue Lipitor Needs follow-up with neurology in 4 to 6 weeks Continue PT OT:Recommends return Home Plan to discharge home today Gross hematuria Obstructive uropathy H/O BPH Hematuria likely multifactorial secondary to TNKase, traumatic Gonzales catheter Monitor H&H and transfuse PRBCs as needed Appreciate urology input Continue Gonzales catheter (readjusted) Bladder scan as needed Discussed with urology on 06/23/2023: Ok to start on Aspirin Continue Gonzales catheter until follow-up with urology as outpatient A-fib RVR H/O Afib Resume metoprolol IV Lopressor as needed Not on chronic anticoagulation due to recurrent hematuria Hypertensive emergency In setting of acute CVA Initially Held antihypertensives for now to allow permissive hypertension Resume Metoprolol, amlodipine, lisinopril Monitor BP CAD S/P stent: Previously on dual antiplatelet therapy--discontinued due to intermittent hematuria as per family Hyperlipidemia Past tobacco abuse Continue home medications DVT Px: SCDs Re: Gross hematuria Code Status Full code Disposition Home Admission and Anticipated Discharge Date Admission Date: June 21, 2023 Subjective Patient seen and examined at bedside Offers no new complaints Discussed with Urology today Hematuria resolved Patient denies any chest pain, dyspnea, abdominal pain, nausea, vomiting Weakness resolved as well Plan to be discharged home today Review of Systems Review of Systems: All systems reviewed & are unremarkable except as noted in Subjective Physical Exam Physical Exam: Physical Exam: Vitals signs as noted above General Appearance:Moderately built and nourished, no apparent distress Head: normocephalic, Atraumatic Eyes: normal inspection, EOMI Neck: supple, Trachea midline Respiratory/Chest: Normal breath sounds, CTA, No accessory muscle use Cardiovascular: Irregularly irregular, No murmur Abdomen/GI:Soft, Non tender, Bowel sounds present Extremities/Musculoskeletal:normal inspection, no edema Neurologic/Psych:AAOX3, grossly no focal neurological deficits Skin: normal color, warm Results & Data Results & Data Vital Signs (Past 12 Hours) Vital Signs Temp Pulse Pulse Resp BP BP Pulse Ox 06/24/23 10:55 36.4 C L 64 18 143/84 H 94 06/24/23 07:30 06/24/23 06:57 36.6 C 66 18 129/75 93 06/24/23 06:48 63 06/24/23 04:33 36.6 C 62 18 119/66 94 O2 Del Method 06/24/23 10:55 Room Air 06/24/23 07:30 Room Air 06/24/23 06:57 Room Air 06/24/23 06:48 06/24/23 04:33 Room Air Laboratory Results Short CBC 06/24/23 Range/Units 05:53 WBC 10.17 (4.8-10.8) K/ul Hgb 12.5 L (14.0-18.0) g/dl Hct 37.1 L (42.0-52.0) % Plt Count 129 L (130-400) K/uL BMP 06/24/23 05:53 Sodium 136 Potassium 4.3 Chloride 105 Carbon Dioxide 27 BUN 23 Creatinine 1.25 Glucose 90 Calcium 8.4 L
--- NOTE | 2023-06-24 12:37 | Discharge Summary ---
Date of Service June 24, 2023 Admission HPI Per Admitting Provider History obtained from patient, family, and records. Limited history from patient secondary to dysarthria. Medical history significant for CAD status post stent, PAF, TIA, hypertension, hyperlipidemia, BPH status post surgery, gout, past tobacco abuse. Last confinement December 2017 for TIA presenting as transient diplopia and left arm/leg ataxia. Coumadin recommended by neurologist given history of A-fib. Patient declined given history of massive hematuria in the past. Patient discharged on dual antiplatelet Rx. Antiplatelet Rx subsequently discontinued outpatient due to intermittent hematuria episodes as per . No outpatient Neurology follow-up postdischarge. Few hours ago, patient found by on the ground with slurred speech, right facial droop, and right-sided weakness. Patient denies headache, chest pain, SOB. Stroke alert called upon arrival at the ER. Highest SBP of 200s documented at the ER. [place] [facility] [place]. IV labetalol bolus followed by nicardipine drip initiated at the ER SBP currently 110s. Gross hematuria without pain noted at the ER. Patient denies abdominal/flank pain symptoms. 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 Admission Exam Per Admitting Provider GENERAL: Comfortable, pleasant, dysarthric, no respiratory distress SKIN: Normal color, warm HEENT: Partial alopecia, pink palpebral conjunctivae, no ptosis, right facial droop, dry buccal mucosa NECK : Supple, no tenderness CHEST : CTA, no tenderness HEART : Irregular, no obvious murmurs ABDOMEN: Blood-soaked blanket covering groin, some distention, nontender EXTREMITIES : No LE swelling/tenderness, no other conspicuous deformities noted NEUROLOGIC : Coherent, right facial droop, dysarthric, MMTs RUE/RLE 3/5, LUE/LLE 4/5 Principal Diagnosis Acute cerebrovascular accident Gross hematuria Atrial fibrillation with rapid ventricular response Hypertension Discharge Data Allergies Allergy/AdvReac Type Severity Reaction Status Date / Time No Known Drug Allergies Allergy Unknown ` Verified 06/21/23 22:14 Consultations 06/21/23 22:17 ED Decision to Admit Stat 06/22/23 00:53 Consult Urology Routine 06/22/23 01:39 Consult Chief Medical Director Routine Consult Neurology Routine Procedures Performed Laboratory Results WBC 10.17 K/ul (4.8-10.8) 06/24/23 05:53 RBC 3.87 M/uL (4.70-6.10) L 06/24/23 05:53 Hgb 12.5 g/dl (14.0-18.0) L 06/24/23 05:53 POC Hgb 15.0 g/dl (14.0-18.0) 06/21/23 21:35 Hct 37.1 % (42.0-52.0) L 06/24/23 05:53 POC Hct 44 % (42-52) 06/21/23 21:35 MCV 95.9 fL (80.0-100.0) 06/24/23 05:53 MCH 32.3 pg (25.0-34.0) 06/24/23 05:53 MCHC 33.7 g/dL (32.0-36.0) 06/24/23 05:53 RDW Std Deviation 47.2 fL (36.4-46.3) H 06/24/23 05:53 RDW Coeff of Jennifer 13.2 % (11.5-14.5) 06/24/23 05:53 Plt Count 129 K/uL (130-400) L 06/24/23 05:53 MPV 12.2 fL (9.4-12.4) 06/24/23 05:53 Immature Gran % (Auto) 0.4 % 06/22/23 09:35 Neut % (Auto) 91.1 % 06/22/23 09:35 Lymph % (Auto) 3.3 % 06/22/23 09:35 [place] % (Auto) 5.1 % 06/22/23 09:35 Eos % (Auto) 0.0 % 06/22/23 09:35 Baso % (Auto) 0.1 % 06/22/23 09:35 Neut # (Auto) 10.83 K/uL (1.40-6.50) H 06/22/23 09:35 Lymph # (Auto) 0.39 K/uL (1.20-3.40) L 06/22/23 09:35 [place] # (Auto) 0.61 K/uL (0.11-0.59) H 06/22/23 09:35 Eos # (Auto) 0.00 K/uL (0.00-0.50) 06/22/23 09:35 Baso # (Auto) 0.01 K/uL (0.00-0.20) 06/22/23 09:35 Immature Gran # (Auto) 0.05 K/uL (0.01-0.20) 06/22/23 09:35 PT 11.3 Seconds (9.0-12.0) 06/21/23 21:32 INR 1.0 (0.9-1.1) 06/21/23 21:32 APTT 27 Seconds (21-31) 06/21/23 21:32 PTT Ratio 1.0 06/21/23 21:32 POC Sodium 139 mmol/L (135-144) 06/21/23 21:35 Sodium 136 mmol/L (136-145) 06/24/23 05:53 POC Potassium 3.9 mmol/L (3.3-5.0) 06/21/23 21:35 Potassium 4.3 mmol/L (3.5-5.1) 06/24/23 05:53 POC Chloride 103 mmol/L (101-112) 06/21/23 21:35 Chloride 105 mmol/L (98-107) 06/24/23 05:53 Carbon Dioxide 27 mmol/L (21-32) 06/24/23 05:53 POC Total CO2 23 mmol/L (24-31) L 06/21/23 21:35 Anion Gap 4 (3-11) 06/24/23 05:53 POC Anion Gap 17.0 mmol/L (16-25) 06/21/23 21:35 POC BUN 18 mg/dl (7-18) 06/21/23 21:35 BUN 23 mg/dl (6-23) 06/24/23 05:53 Creatinine 1.25 mg/dl (0.6-1.4) 06/24/23 05:53 POC Creatinine 1.3 mg/dl (0.6-1.3) 06/21/23 21:35 Est Cr Clr Drug Dosing 44.8 ml/min 06/24/23 05:53 Est GFR ( Amer) 61.3 ml/min 06/24/23 05:53 Est GFR (Non-Af Amer) 52.9 ml/min 06/24/23 05:53 BUN/Creatinine Ratio 18.4 (10-20) 06/24/23 05:53 Glucose 90 mg/dl (70-99(Fasting)) 06/24/23 05:53 POC Glucose 121 mg/dl (70-99) H 06/22/23 20:14 POC Glucose (other) 109 mg/dl (70-99) H 06/21/23 21:35 Estimat Average Glucose 114 mg/dl 06/22/23 04:04 Hemoglobin A1c 5.6 % (4.5-5.6) 06/22/23 04:04 Calcium 8.4 mg/dl (8.6-10.3) L 06/24/23 05:53 POC Ioniz Calcium Brenda 1.07 mmol/l (1.12-1.32) L 06/21/23 21:35 Magnesium 2.3 mg/dl (1.7-2.4) 06/23/23 04:41 Total Bilirubin 0.9 mg/dl (0.2-1.0) 06/21/23 21:32 AST 21 U/L (13-39) 06/21/23 21:32 ALT 16 U/L (7-52) 06/21/23 21:32 Alkaline Phosphatase 110 U/L (34-104) H 06/21/23 21:32 Troponin I High Sens 8.1 pg/ml (0-20) 06/21/23 21:32 B-Natriuretic Peptide 376 pg/ml (0-100) H 06/21/23 21:32 Total Protein 7.4 gm/dl (6.0-8.3) 06/21/23 21:32 Albumin 4.2 gm/dl (3.4-5.0) 06/21/23 21:32 Globulin 3.2 gm/dl (2.5-4.0) 06/21/23 21:32 Albumin/Globulin Ratio 1.3 (0.9-2) 06/21/23 21:32 Triglycerides 68 mg/dl (0-150) 06/22/23 04:04 Cholesterol 139 mg/dl (0-200) 06/22/23 04:04 LDL Cholesterol, Calc 82 mg/dl 06/22/23 04:04 VLDL Cholesterol, Calc 14 mg/dl (0-30) 06/22/23 04:04 HDL Cholesterol 43 mg/dl 06/22/23 04:04 Cholesterol/HDL Ratio 3.2 (0-5) 06/22/23 04:04 Urine Color Yellow 06/22/23 Unknown Urine Appearance Clear (Clear) 06/22/23 Unknown Urine pH 7.5 (4.5-7.5) 06/22/23 Unknown Ur Specific [place] 1.017 (1.000-1.030) 06/22/23 Unknown Urine Protein Negative (Negative) 06/22/23 Unknown Urine Glucose (UA) Negative (Negative) 06/22/23 Unknown Urine Ketones Negative (Negative) 06/22/23 Unknown Urine Blood Negative (Negative) 06/22/23 Unknown Urine Nitrite Negative (Negative) 06/22/23 Unknown Urine Bilirubin Negative (Negative) 06/22/23 Unknown Urine Urobilinogen Negative (Negative) 06/22/23 Unknown Ur Leukocyte Esterase Negative (Negative) 06/22/23 Unknown Nasal Screen MRSA (PCR) Negative (Negative) 06/22/23 01:39 Blood Type AB Positive 06/21/23 21:32 Antibody Screen NEGATIVE 06/21/23 21:32 Impressions Head CTA 06/21/23 21:[address] OF THE BRAIN; CT ANGIOGRAM OF THE BRAIN; CT ANGIOGRAM OF THE NECK CLINICAL HISTORY: Neurological deficit. Stroke like symptoms. Right-sided weakness. Slurred speech. COMPARISON STUDY: CT angiogram of the head and neck dated 12/30/2017. MRI of the brain dated 12/31/2017. TECHNIQUE: Unenhanced axial CT scan of the brain is performed. Subsequently, following the IV administration of 118 of Optiray 320, CT angiogram of the head and neck was performed from the aortic arch to the vertex. Images are reviewed in the axial, sagittal, and coronal planes. 3-D MIPS images are created and assessed. IV contrast was administered without complication. All measurements were calculated based on NASCET criteria. A dose lowering technique was utilized adhering to the principles of ALARA. CT DOSE: 1380.12 mGy.cm FINDINGS: Brain parenchyma: There is age-related involutional change noting mild subcortic al and periventricular microcatheter pathic disease. Right occipital encephalomalacia is consistent with a remote infarct. Chronic lacunar infarcts are noted in the right thalamus and the right cerebellar hemisphere. There is no hemorrhage, mass effect, or evidence of acute territorial ischemia by CT criteria. There is no evidence of enhancing mass lesion on the angiogram phase images. The ventricles, sulci, and cisterns are prominent secondary to involutional change. [place]-white matter differentiation is preserved. No extra- axial fluid collection is seen. Thoracic aorta: There is atherosclerotic calcification of the thoracic aorta. Visualized portions of the thoracic aorta are normal in caliber. The aortic arch demonstrates standard 3-vessel anatomy. Right carotid arterial system: The right common carotid artery is widely patent, as are the right internal and external carotid arteries. Calcified plaque is seen in the carotid bulb. Left carotid arterial system: The left common carotid artery is widely patent, as are the left internal and external carotid arteries. Calcified plaque is noted in the carotid bulb. Vertebral arteries: The vertebral arteries are widely patent bilaterally and codominant in the neck. Subclavian arteries: Widely patent bilaterally. Intracranial vasculature: There is atherosclerotic calcification of the cavernous carotid and vertebral arteries. The internal carotid arteries are patent at the skull base, as are the anterior and middle cerebral arteries bilaterally. The vertebrobasilar system and posterior cerebral arteries are widely patent. The left vertebral artery is dominant. A posterior communicating artery is noted on the left. 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 This is best seen on image #106. Additional foci of focal vessel caliber seen throughout the intracranial circulation. No aneurysm is identified.. Jugular veins: Patent bilaterally. Dural sinuses: Patent. Lung apices: Partially visualized upper lobe lung parenchyma appears clear. Soft tissues: The visualized pharyngeal soft tissues are normal in appearance noting angiographic phase technique. The oropharyngeal airway appears widely patent. The salivary and thyroid glands are normal in appearance. No cervical lymphadenopathy is seen. Skeletal structures: The skeletal structures are osteopenic. The calvarium appears intact. The cervical spine is maintained noting mild spondylosis. Orbits: The bony orbits are intact. Orbital contents are normal as visualized. Sinuses and mastoids: The paranasal sinuses are clear. There is a large right mastoid effusion. Fluid fills the right middle ear. The left mastoid air cells are well pneumatized. IMPRESSION: 1. 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 This represents a significant change from the 12/30/2017 CT angiogram of the brain and likely represents acute stroke. 2. The brain parenchyma is normal in appearance. There is no hemorrhage or mass effect. 3. Otherwise unremarkable CT angiogram of the brain. 4. Unremarkable CT angiogram of the neck. ACT 112: Negative or not required by law. Electronically signed by: Ramu Gonzales M.D. 06/21/2023 9:45 PM Neck CTA 06/21/23 21:[address] OF THE BRAIN; CT ANGIOGRAM OF THE BRAIN; CT ANGIOGRAM OF THE NECK CLINICAL HISTORY: Neurological deficit. Stroke like symptoms. Right-sided weakness. Slurred speech. COMPARISON STUDY: CT angiogram of the head and neck dated 12/30/2017. MRI of the brain dated 12/31/2017. TECHNIQUE: Unenhanced axial CT scan of the brain is performed. Subsequently, following the IV administration of 118 of Optiray 320, CT angiogram of the head and neck was performed from the aortic arch to the vertex. Images are reviewed in the axial, sagittal, and coronal planes. 3-D MIPS images are created and assessed. IV contrast was administered without complication. All measurements were calculated based on NASCET criteria. A dose lowering technique was utilized adhering to the principles of ALARA. CT DOSE: 1380.12 mGy.cm FINDINGS: Brain parenchyma: There is age-related involutional change noting mild subcortical and periventricular microcatheter pathic disease. Right occipital encephalomalacia is consistent with a remote infarct. Chronic lacunar infarcts are noted in the right thalamus and the right cerebellar hemisphere. There is no hemorrhage, mass effect, or evidence of acute territorial ischemia by CT criteria. There is no evidence of enhancing mass lesion on the angiogram phase images. The ventricles, sulci, and cisterns are prominent secondary to involutional change. [place]-white matter differentiation is preserved. No extra- axial fluid collection is seen. Thoracic aorta: There is atherosclerotic calcification of the thoracic aorta. Visualized portions of the thoracic aorta are normal in caliber. The aortic arch demonstrates standard 3-vessel anatomy. Right carotid arterial system: The right common carotid artery is widely patent, as are the right internal and external carotid arteries. Calcified plaque is seen in the carotid bulb. Left carotid arterial system: The left common carotid artery is widely patent, as are the left internal and external carotid arteries. Calcified plaque is noted in the carotid bulb. Vertebral arteries: The vertebral arteries are widely patent bilaterally and codominant in the neck. Subclavian arteries: Widely patent bilaterally. Intracranial vasculature: There is atherosclerotic calcification of the cavernous carotid and vertebral arteries. The internal carotid arteries are patent at the skull base, as are the anterior and middle cerebral arteries bilaterally. The vertebrobasilar system and posterior cerebral arteries are widely patent. The left vertebral artery is dominant. A posterior communicating artery is noted on the left. 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 This is best seen on image #106. Additional foci of focal vessel caliber seen throughout the intracranial circulation. No aneurysm is identified.. Jugular veins: Patent bilaterally. Dural sinuses: Patent. Lung apices: Partially visualized upper lobe lung parenchyma appears clear. Soft tissues: The visualized pharyngeal soft tissues are normal in appearance noting angiographic phase technique. The oropharyngeal airway appears widely patent. The salivary and thyroid glands are normal in appearance. No cervical lymphadenopathy is seen. Skeletal structures: The skeletal structures are osteopenic. The calvarium appears intact. The cervical spine is maintained noting mild spondylosis. Orbits: The bony orbits are intact. Orbital contents are normal as visualized. Sinuses and mastoids: The paranasal sinuses are clear. There is a large right mastoid effusion. Fluid fills the right middle ear. The left mastoid air cells are well pneumatized. IMPRESSION: 1. 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 This represents a significant change from the 12/30/2017 CT angiogram of the brain and likely represents acute stroke. 2. The brain parenchyma is normal in appearance. There is no hemorrhage or mass effect. 3. Otherwise unremarkable CT angiogram of the brain. 4. Unremarkable CT angiogram of the neck. ACT 112: Negative or not required by law. Electronically signed by: Ramu Gonzales M.D. 06/21/2023 9:45 PM Chest X-Ray 06/21/23 23:15 SINGLE VIEW CHEST CLINICAL HISTORY: Hypertension. FINDINGS: An AP, portable, upright chest radiograph is compared to study dated 12/31/2017. The heart is enlarged and noting atherosclerotic calcification of the thoracic aorta. There is pulmonary vascular congestion with mild interstitial edema. Atelectasis is noted at both lung bases. No large pleural effusion or pneumothorax is seen. The skeletal structures are osteopenic. The bony thorax is grossly intact. IMPRESSION: Cardiomegaly with evidence of congestive failure and mild pulmonary edema. ACT 112: Negative or not required by law. Electronically signed by: Ramu Gonzales M.D. 06/22/2023 6:49 AM Abdomen/Pelvis CT 06/22/23 00:48 Exam(s): CT ABDOMEN + PELVIS Without Contrast EXAM: CT Abdomen and Pelvis Without Intravenous Contrast CLINICAL HISTORY: Reason for exam: hematuria. TECHNIQUE: Axial computed tomography images of the abdomen and pelvis without intravenous contrast. CTDI is 21.98 mGy and DLP is 1094.63 mGy-cm. Automated exposure control was utilized for the study. A dose lowering technique was utilized adhering to the principles of ALARA. COMPARISON: 07/01/18. FINDINGS: Lung bases: Bilateral lower lobe atelectasis versus residual infiltrates. Heart: Mild cardiomegaly. ABDOMEN: Liver: Unremarkable. Gallbladder and bile ducts: Possible tiny gallstones, otherwise unremarkable gallbladder and biliary system. No ductal dilation. Pancreas: Unremarkable. No ductal dilation. Spleen: Unremarkable. No splenomegaly. Adrenals: Unremarkable. No mass. Kidneys and ureters: Unremarkable. No obstructing stones. No hydronephrosis. Stomach and bowel: Unremarkable. No obstruction. No mucosal thickening. PELVIS: Appendix: Normal appendix . Bladder: Unremarkable. No stones. Reproductive: Moderate to significant prostate enlargement. Surgical clips at the level of the scrotal region, correlation with type of surgery recommended. ABDOMEN and PELVIS: Intraperitoneal space: Unremarkable. No free air. No significant fluid collection. Bones/joints: Multilevel degenerative disease of the spine. No acute fracture. No dislocation. Soft tissues: Small left-sided fat-containing inguinal hernia. Vasculature: Calcified atherosclerotic disease of aorta with no aneurysm. Lymph nodes: Unremarkable. No enlarged lymph nodes. IMPRESSION: 1. No hydronephrosis or hydroureter. Unremarkable urinary bladder. Prostate enlargement. 2. No acute appendicitis or bowel obstruction. 3. Possible tiny gallstones, otherwise unremarkable abdominal viscera. Electronically signed by: Missy Gutierrez MD 06/22/23 03:11 AM Brain MRI 06/22/23 01:39 MRI OF THE BRAIN WITHOUT IV CONTRAST CLINICAL HISTORY: Stroke status post TPA. COMPARISON STUDY: CT and CT angiogram of the brain dated 06/21/2023. TECHNIQUE: MRI of the brain was performed utilizing various T1 and T2-weighted sequences in the axial, sagittal, and coronal planes. IV contrast was not administered for this examination. FINDINGS: Brain parenchyma: There is a large region of restricted diffusion in the left anterior superior cerebral artery distribution consistent with an acute to subacute infarct. No additional foci of restricted diffusion are identified. There are small chronic infarcts in the right thalamus, the right occipital cortex, the right parietal cortex, and the right cerebellar hemisphere. There is no hemorrhage or mass effect. There is age related involutional change noting minimal microangiopathic disease. No extra-axial fluid collection is seen. The cerebellar tonsils are normal in configuration. Ventricles, sulci, and cisterns: Prominent secondary to involutional change. Pituitary and sella: Unremarkable. Intracranial vasculature: Normal flow voids are maintained at the skull base. Orbits: The bony orbits are grossly intact. Orbital contents are normal in appearance. Sinuses and mastoids: There is trace mucosal thickening ethmoid sinuses. The remaining paranasal sinuses are clear. There are right larger than left mastoid effusions. Fluid is also seen in the right middle ear. Calvarium: Unremarkable. Cervical cord: Partially visualized cervical spinal cord is normal in morphology and signal intensity. IMPRESSION: 1. There is a large acute to subacute left cerebellar infarct in the anterior superior cerebellar artery territory. This corresponds to the findings on yesterday's CT angiogram of the brain. 2. No additional foci of acute ischemia are identified. 3. There is no hemorrhage or mass effect. 4. There are several small chronic infarcts as above. 5. Right-sided otomastoiditis. ACT 112: Negative or not required by law. Electronically signed by: Ramu Gonzales M.D. 06/22/2023 10:[address] 06/22/23 19:14 Exam(s): CT HEAD Without Contrast EXAM: CT Head Without Intravenous Contrast CLINICAL HISTORY: Reason for exam: 24 hr f/u CT Head. TECHNIQUE: Axial computed tomography images of the head/brain without intravenous contrast. CTDI is 49.83 mGy and DLP is 800.63 mGy-cm. Automated exposure control was utilized for the study. A dose lowering technique was utilized adhering to the principles of ALARA. COMPARISON: Brain MRI from June 22, 2023. FINDINGS: No acute intracranial hemorrhage. No midline shift or mass effect. Encephalomalacia in the cerebellum, concerning for old infarct. Refer to brain MRI from June 22, 2023. Age-related cerebral volume loss. Periventricular and subcortical white matter hypoattenuation, consistent with chronic microangiopathy. The visualized orbits appear grossly unremarkable. The calvarium is intact. The visualized paranasal sinuses and mastoid air cells are grossly clear. IMPRESSION: No acute intracranial hemorrhage. No midline shift or mass effect. Encephalomalacia in the cerebellum, concerning for old infarct. Refer to brain MRI from June 22, 2023. Electronically signed by: Cj Castro MD 06/22/23 22:18 PM Ordered Studies 06/21/23 21:10 CT angio head w con Stat CT angio neck with con Stat CT head/brain wo con Stat 06/21/23 22:41 CT head/brain wo con Stat 06/22/23 00:48 CT Abd and Pelvis [CT abd pelvis wo con] Stat 06/22/23 01:39 MR brain wo con Routine 06/22/23 19:14 CT head/brain wo con Urgent Hospital Course (1) Acute CVA (cerebrovascular accident): Acute CVA Likely embolic --MRI:There is a large acute to subacute left cerebellar infarct in the anterior superior cerebellar artery territory. This corresponds to the findings on yesterday's CT angiogram of the brain.2. No additional foci of acute ischemia are identified. There is no hemorrhage or mass effect. There are several small chronic infarcts as above. 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 This represents a significant change from the 12/30/2017 CT angiogram of the brain and likely represents acute stroke. The brain parenchyma is normal in appearance. There is no hemorrhage or mass effect. Otherwise unremarkable CT angiogram of the brain. Unremarkable CT angiogram of the neck. --ECHO: EF 60 to 65%. Moderate concentric LVH. Left atrium is moderately dilated. Mild mitral regurgitation. Mild tricuspid regurgitation. --S/P TNKase administration --Repeat CT head:No acute intracranial hemorrhage. No midline shift or mass effect. Encephalomalacia in the cerebellum, concerning for old infarct. Refer to brain MRI from June 22, 2023. Continue neurochecks Appreciate neurology input Will need watchman's procedure as outpatient start on aspirin 81 mg daily Continue Lipitor Needs follow-up with neurology in 4 to 6 weeks Continue PT OT:Recommends return Home Plan to discharge home today Gross hematuria Obstructive uropathy H/O BPH Hematuria likely multifactorial secondary to TNKase, traumatic Gonzales catheter Monitor H&H and transfuse PRBCs as needed Appreciate urology input Continue Gonzales catheter (readjusted) Bladder scan as needed Discussed with urology on 06/23/2023: Ok to start on Aspirin Continue Gonzales catheter until follow-up with urology as outpatient A-fib RVR H/O Afib Resume metoprolol IV Lopressor as needed Not on chronic anticoagulation due to recurrent hematuria Hypertensive emergency In setting of acute CVA Initially Held antihypertensives for now to allow permissive hypertension Resume Metoprolol, amlodipine, lisinopril Monitor BP CAD S/P stent: Previously on dual antiplatelet therapy--discontinued due to intermittent hematuria as per family Hyperlipidemia Past tobacco abuse Continue home medications DVT Px: SCDs Re: Gross hematuria Code Status Full code Disposition Home Total Time Total Time Spent Total Time Spent (In Minutes): 65 minutes Discharge Plan Discharge Items Patient Disposition: Home - Self-Care Reason For Visit: CVA SP TNK Discharge Diagnosis: Acute cerebrovascular accident Gross hematuria Atrial fibrillation with rapid ventricular response Hypertension Activity: Per Instructions section Exercise/Sports: Gradually increase as tolerated Non-emergency contact: Primary Care Provider, Cathead Operator and Neurologist Call non-emergency contact if: you have any medication questions, your symptoms worsen, your pain is concerning for you and you have a fever Follow-up/Referrals: Daniel Donaldson MD [Physician] - (The Urology office will contact you for a follow up appointment.) Parker Abraham MD [Outside Practitioners] - Diet: Heart Healthy Addtl Attending Provider Instructions: Follow-up with your primary care physician in 1 week Follow-up with your neurologist in 4 to 6 weeks Follow-up with your urologist Dr. Donaldson as recommended Follow-up with your manager simulation for possible watchman's procedure as recommended by your neurologist --Monitor your blood pressure regularly at home. Discuss with your physician for further adjustment of medications as needed -- Continue Gonzales catheter until follow-up with your urologist as recommended. Seek immediate medical attention if your symptoms reoccur or worsen Please take all medications as instructed on discharge list below. Please call if you have any questions or problems. You can reach a [facility] hospitalist on duty at [facility] 24 hours a day by calling [phone] Do not take group of medications belonging to NSAIDs group -can cause worsening of bleeding. List Of these medications includes but not limited to: Diclofenac Ibuprofen, Motrin, Advil Toradol,ketorolac Naproxen, Aleve, Naprosyn Celecoxib You can take Tylenol as needed for pain or fever When buying [id number] pain medications please consult with pharmacy if you are not sure regarding ingredients, as a lot of the pain medications have combination of NSAIDs and Tylenol. Risk Factors for Stroke: You can reduce your chances of stroke by working with your medical provider to adopt a healthy lifestyle. Some specific ways to lower your chance of stroke are: * If you are a smoker, now is the time to stop smoking cigarettes * If you are diabetic, improve the control of your blood sugars * Avoid excessive amounts of alcohol * Control high blood pressure * Lose weight if you are overweight * Be sure to lead an active lifestyle * Eat a healthy diet low in salt, cholesterol and fat You should know about other risk factors for stroke that you are unable to control. These include: * Age 55 years or older * Male gender * Certain racial groups: , or / * Family History of Stroke, Mini stroke or Heart Attack * Sickle Cell Disease Follow Up: It is important for you to keep your follow up appointments with your medical provider. Who to Call and When: Medical Emergencies: Call 911 immediately if you experience any of the following warning signs and symptoms of Stroke: * Sudden numbness or weakness of the face, arm or leg, especially on one side of the body * Sudden confusion, trouble speaking or understanding * Sudden trouble seeing in one or both eyes * Sudden trouble walking, dizziness, loss of balance or coordination * Sudden severe headache with no cause Do not delay calling 911 if you experience any warning signs or symptoms of a stroke. Delay in seeking medical attention may affect what treatments can be given to you. . Pending Studies at Discharge: No Stand-Alone Forms: My [facility], Smoking Cessation, Medications to Prevent Stroke Medications and DC Order Prescriptions: New atorvastatin 40 mg Tablet 40 mg PO DAILY Qty: 30 1RF aspirin 81 mg Tablet,Delayed Release (Dr/Ec) 81 mg PO QAM Qty: 30 1RF Continued amlodipine 2.5 mg tablet 2.5 mg PO DAILY acetaminophen [Tylenol Extra Strength] 500 mg Tablet 500 - 1,000 mg PO Q6H PRN (Reason: Pain) metoprolol tartrate 50 mg tablet 50 mg PO BID lisinopril 30 mg tablet 30 mg PO DAILY colchicine 0.6 mg tablet 0.6 mg PO DIRECTED PRN (Reason: .gout) Rx Instructions: May repeat once in 24 hrs. dutasteride 0.5 mg capsule 0.5 mg PO QAM Multaq 400 mg tablet 400 mg PO AMHS Held sildenafil [Viagra] 50 mg Tablet 50 mg PO DAILY PRN (Reason: ..) Hold Instructions: Until further recommendations from your primary care physician Rx Instructions: administer 30 minutes to 4 hours before activity Discontinued celecoxib 200 mg capsule 200 mg PO QAM simvastatin 10 mg tablet 10 mg PO QPM Discharge Orders: Discharge Order (Routine); Ordered 06/24/23 Ordered By: Wili Singh Admission Data Admit Date/Time: 06/21/23 23:47 Attending Provider: Wili Singh Admit Provider: Hossein Aiken Primary Care Provider: Julien Bundy Other Providers: Hossein Aiken; Daniel Donaldson; Massimo Kc; Mica Tan; Julio C Pisano; Mica Escalante; Enmanuel Escudero; Aj Bundy; Will Braxton; Parker Landa; Alexa Chen; Geovanni Neri; Fran Frazier; Ulisses Aguilar; Archie Solo; Venice Johnson; Dagmar Hansen; Parker Borges
== END 2023-06-24 13:53 | disposition home or self-care (01) | DRG 62 ==
LOC: ED 21:08 → 1E 23:47 → 2N 06-23 09:33
DX: N13.8 Other obstructive and reflux uropathy; I16.1 Hypertensive emergency; R29.704 NIHSS score 4; Z86.73 Personal history of transient ischemic attack (TIA), and cerebral infarction without residual deficits; R47.1 Dysarthria and anarthria; R31.0 Gross hematuria; T45.615A Adverse effect of thrombolytic drugs, initial encounter; Z82.49 Family history of ischemic heart disease and other diseases of the circulatory system; I63.442 Cerebral infarction due to embolism of left cerebellar artery; I25.10 Atherosclerotic heart disease of native coronary artery without angina pectoris; Y65.8 Other specified misadventures during surgical and medical care; I48.0 Paroxysmal atrial fibrillation; Z95.5 Presence of coronary angioplasty implant and graft; G81.91 Hemiplegia, unspecified affecting right dominant side; Z87.891 Personal history of nicotine dependence; E78.5 Hyperlipidemia, unspecified; T83.021A Displacement of indwelling urethral catheter, initial encounter; I10 Essential (primary) hypertension; N40.0 Benign prostatic hyperplasia without lower urinary tract symptoms; R29.810 Facial weakness